=== PATIENT | female | born 1935 | race Caucasian/White ===

== ENCOUNTER 2019-02-13 17:11 | Inpatient (IN) | payer MEDICARE, OTHER ==
[~2019-02-13] VITALS: Ht 162.6 cm; Wt 47.8 kg
[~2019-02-13 17:11] MED LIST: ACETAMINOP500 MG/5 M PEG; ACETAMINOPHEN500 MG IV; ACIDOPHILUS1 EAC1 PEG; ASPIR-LOW81 MG PEG; ASPIRIN81 MG PEG; BACITRACIN1 EACH TOP; CLEOCIN HCL150 MG GT; CLONIDINE HCL0.1 MG PEG; COLLAGENASE1 EACH TOP; ENOXAPARIN40 MG/0.4 SC; ERTAPENEM; FAMOTIDINE20 MG PEG; FERROUS SU15 MG/1 ML; FERROUS SULFAT325 MG PEG; FOLIC ACID1 MG PEG; FUROSEMIDE10 MG/1 M1; HYDRALAZINE HCL10 MG IVP; INSULIN REGULAR SUBCON; IPRAT-ALBUT 0.5-3 ML; LEVOTHYROXINE150 MCG PEG; LEVOTHYROXINE200 MCG PEG; MEROPENEM500 MG IV; METOCLOPRAM5 MG/5 ML PEG; METOPROLOL TAR100 MG PEG; METOPROLOL TART25 MG PEG; PANTOPRAZOLE SO40 MG PEG; PEPCID40 MG PEG; PROTEIN POWDER PEG; PROTONIX20 MG; SUCRALFATE1 G/10 ML PEG; TRAMADOL PEG; TRIPLE ANTIBIO0.9 GM TOP; ULTRAM 50MG50 MG PEG
--- NOTE | 2019-02-13 18:16 | NUR ---
CALLED [facility]P FOR ABG
--- NOTE | 2019-02-13 18:37 | NUR ---
CALLED LAB FOR DRAW
[2019-02-13] MEDS ORDERED: SODIUM CHLORIDE 0.9% 1000ML 1,000 ML IV STA (18:53)
--- NOTE | 2019-02-13 18:59 | NUR ---
RT UNABLE TO GET MD JERMAINE NOTIFIED
--- NOTE | 2019-02-13 19:36 | Diagnostic Imaging Report ---
EXAMINATION: CHEST SINGLE (PORTABLE) COMPARISON: None available INDICATION: Shortness of breath ^SOB ^[id number] ^[id number] DISCUSSION: Frontal view of the chest obtained at 1915 hours. HEART AND MEDIASTINUM: The heart is normal in size. The aorta is tortuous LINES: None. LUNGS: Diffuse hyperinflation consistent with COPD. Patchy right basilar airspace opacities are present. PLEURA: No pleural effusion or pneumothorax. BONES AND SOFT TISSUES: There is a superimposed extremity over the proximal left humerus. No focal osseous lesions. The soft tissues are normal. IMPRESSION: Pulmonary hyperinflation suggestive of small airways disease/emphysema. Right basilar airspace opacity is suggestive of developing pneumonia. Signed by: Dr. Galilea Vallejo MD on 02/13/2019 7:33 PM
[2019-02-13] MEDS ORDERED: ACETAMINOPHEN 1000 MG/100 ML IV NR (19:45)
[2019-02-13] MEDS ORDERED: CEFEPIME 2 GM/NS 0.9% 100 ML 100 ML IV STA (19:45)
[2019-02-13 19:46] LABS: BILIRUBIN,URINE NEGATIVE (NEGATIVE); CLARITY,URINE SL CLOUDY (CLEAR); COLOR,URINE YELLOW (YELLOW); KETONES,URINE NEGATIVE (NEGATIVE); LEUKOCYTE ESTERASE ,URINE LARGE (NEGATIVE); NITRITE,URINE NEGATIVE (NEGATIVE); PROTEIN,URINE DIPSTICK TRACE (NEGATIVE); URINE UROBILINOGEN 0.2 mg/dL (0.2 - 1)
[2019-02-13 19:56] LABS: BASOPHILS % 0.2 % (0.0-1.0); EOSINOPHILS # (AUTO) 0.1 (0.0-0.4); EOSINOPHILS % 0.8 % (0.0-6.0); HEMATOCRIT 37.7 % (34.2-44.1); HEMOGLOBIN 11.6 g/dL (12.0-16.0); LYMPHOCYTES # (AUTO) 1.6 (1.0-3.2); LYMPHOCYTES % 15.1 % (18.0-39.1); MEAN CORPUSCULAR HEMOGLOBIN 34.5 pg (28-32); MEAN CORPUSCULAR HGB CONC 30.8 g/dL (31-35); MEAN CORPUSCULAR VOLUME 112.2 fL (81-99); MONOCYTES # (AUTO) 0.6 (0.2-0.8); MONOCYTES % 5.2 % (4.4-11.3); NEUTROPHILS # (AUTO) 8.5 (2.1-6.9); NEUTROPHILS % 78.2 % (38.7-80.0); PLATELET COUNT 227 x10e3/uL (140-360); RED BLOOD COUNT 3.36 x10e6/uL (3.6-5.1); RED CELL DISTRIBUTION WIDTH 16.9 % (11.7-14.4)
[2019-02-13 19:57] LABS: BACTERIA,URINE MANY /HPF; EPITHELIAL CELLS,URINE MODERATE /LPF
[2019-02-13 20:16] LABS: ALBUMIN 2.7 g/dL (3.5-5.0); ALBUMIN/GLOBULIN RATIO 0.6 (0.8-2.0); ANION GAP 14.2 mmol/L (8-16); CREATININE, SERUM 1.14 mg/dL (0.57-1.11); POTASSIUM 3.2 mmol/L (3.5-5.1)
--- NOTE | 2019-02-13 20:54 | NUR ---
pt c hr 150-170's. dr antony informed.
[2019-02-13] MEDS: SODIUM CHLORIDE 0.45% 1,000 ML IV SCH (20:55)
[2019-02-13] MEDS: METOPROLOL TARTRATE INJ 1 MG/ML VIAL IV NR ×2 (21:09→23:18)
[2019-02-13] MEDS ORDERED: METOPROLOL TARTRATE INJ 1 MG/ML VIAL ONE (21:12)
[2019-02-13] MEDS ORDERED: SODIUM CHLORIDE 0.45% IV ONE (21:15)
--- NOTE | 2019-02-13 21:41 | NUR ---
family at bedside c md discussing code status and pt condition.
[2019-02-13] MEDS ORDERED: ACETAMINOPHEN 1000 MG/100 ML IV STA (23:01)
[2019-02-13] MEDS ORDERED: ONDANSETRON HCL INJ 2MG/ML 2ML 2 MG/ML VIAL IV STA (23:01)
[2019-02-13] MEDS ORDERED: REFRESH CELLUV1 EACH OU (23:07)
[2019-02-13] MEDS ORDERED: LACTULOSE20 GM/30 M PEG (23:07)
[2019-02-13] MEDS ORDERED: MONTELUKAST SOD10 MG PO (23:07)
[2019-02-13] MEDS ORDERED: SODIUM CHLORIDE1 GM PO (23:07)
[2019-02-13] MEDS ORDERED: FUROSEMIDE40 MG PO (23:07)
[2019-02-13] MEDS ORDERED: ACETYLCYST100 MG/1 M INH (23:09)
[2019-02-13] MEDS ORDERED: COMBIVENT RESPIM4 GM IH (23:09)
[2019-02-13] MEDS ORDERED: CEFEPIME 2 GM/NS 0.9% 100 ML 100 ML IV SCH (23:15)
[2019-02-13] MEDS ORDERED: ACETAMINOPHEN 1000 MG/100 ML IV PRN (23:15)
--- OUTSIDE RECORDS SUMMARY | 2019-02-13 23:17 | XMS REPORT ---
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 Allergies, Adverse Reactions, Alerts Allergy Name Allergy Type Status Severity Reaction(s) Onset Date Inactive Date Treating Clinician Comments Penicillins DA Active U 2018-12-13 00:00:00 Sulfa (Sulfonamide Antibiotics) DA Active U 2018-12-13 00:00:00 morphine DA Active U 2018-12-13 00:00:00 codeine DA Active U 2018-12-13 00:00:00 No Known Allergies DA Active U 2018-11-04 00:00:00 Penicillins DA Active U 2018-10-24 00:00:00 Sulfa (Sulfonamide Antibiotics) DA Active U 2018-10-24 00:00:00 morphine DA Active U 2018-10-24 00:00:00 codeine DA Active U 2018-10-24 00:00:00 Penicillins DA Active U 2018-10-08 00:00:00 Sulfa (Sulfonamide Antibiotics) DA Active U 2018-10-08 00:00:00 morphine DA Active U 2018-10-08 00:00:00 codeine DA Active U 2018-10-08 00:00:00 SILK TAPE DA Active U 2018-10-08 00:00:00 morphine DA Active U 2018-09-21 00:00:00 Penicillins DA Active U 2018-09-15 00:00:00 Sulfa (Sulfonamide Antibiotics) DA Active U 2018-09-15 00:00:00 codeine DA Active U 2018-09-15 00:00:00 Penicillins DA Active U 2018-04-28 00:00:00 Sulfa (Sulfonamide Antibiotics) DA Active U 2018-04-28 00:00:00 codeine DA Active U 2018-04-28 00:00:00 Penicillins DA Active U 2017-12-23 00:00:00 Sulfa (Sulfonamide Antibiotics) DA Active U 2017-12-23 00:00:00 codeine DA Active U 2017-12-23 00:00:00 Penicillins DA Active U 2017-08-13 00:00:00 Sulfa (Sulfonamide Antibiotics) DA Active U 2017-08-13 00:00:00 codeine DA Active U 2017-08-13 00:00:00 Medications This patient has no known medications. Results Test Description Test Time Test Comments Text Results Atomic Results Result Comments CHEST SINGLE (PORTABLE) 2019-02-13 19:31:00 [place] [address] Patient Name: ANA CRISTINA FLANNERY MR #: [id number] : 1935 Age/Sex: 83/F Req #: [id number] Adm Physician: Ordered by: DAVID PAVON MD Report #: [id number] Location: ER Room/Bed: Procedure: [id number] DX/CHEST SINGLE (PORTABLE) Exam Date: 02/13/19 Exam Time: 1914 REPORT STATUS: Signed EXAMINATION: CHEST SINGLE (PORTABLE) [facility] PARISON: None available INDICATION: Shortness of breath SOB [id number] DISCUSSION: Frontal view of the chest obtained at 1915 hours. HEART AND MEDIASTINUM: The heart is normal in size. The aorta is tortuous LINES: None. LUNGS: Diffuse hyperinflation consistent with COPD. Patchy right basilar airspace opacities are present. PLEURA: No pleural effusion or pneumothorax. BONES AND SOFT TISSUES: There is a superimposed extremity over the proximal left humerus. No focal osseous lesions. The soft tissues are normal. IMPRESSION: Pulmonary hyperinflation suggestive of small airways disease/emphysema. Right basilar airspace opacity is suggestive of developing pneumonia. Signed by: Dr. Galilea Sanches MD on 02/13/2019 7:33 PM Dictated By: GALILEA SANCHES MD 32 Transcribed By: NATHALY on 02/13/191932 COPY TO: DAVID PAVON MD - CONT INJ GS/ ELIZABETH/ FRANCISCO/ SAUNDRA 2018-12-13 15:29:00 FAX: Jeff Arroyo [phone] Pace: St: REG FAX: Stone Ulloa DO Name: ANA CRISTINA FLANNERY [facility] : 1935 Age/S: 83/F [address] [facility] Unit #: [id number] Loc: [place] [address] Phys: Stone Ulloa DO Acct: [id number] Dis Date: Status: REG ER PHONE #: [phone] Exam Date: 12/13/2018 151 FAX #: [phone] Reason: PEG tube placement - use gastrograffin EXAMS: CPT CODE: [id number] CONT INJ GS/ ELIZABETH/ FRANCISCO/ [place] [address] HISTORY: PEG tube placement. COMPARISON: CT scan from October 08, 2018. Entry Level view of the abdomen demonstrating tube tip in the left upper quadrant. Following contrast administration the PEG tube tip is in the gastric fundus region with opacification of the stomach and duodenum. IMPRESSION: PEG tube tip in the gastric fundus with opacification of the stomach and the duodenum. at 1529 Reported and signed by: Barney Epperson M.D. CC: Dr. Jeff Gutierres; Stone Ulloa DO Technologist: Anisha Montana(R); LUKAS BOB (R) Trnscrd Date/Time/By: 12/13/2018 (3381) : By: [email or web address] Orig Print D/T: S: 12/13/2018 (9360) PAGE 1 Signed Report BASIC METABOLIC PANEL 2018-11-14 06:09:00 SODIUM (test code=NA) 133 mmol/L 136-145 POTASSIUM (test code=K) 4.4 mmol/L 3.5-5.1 CHLORIDE (test code=CL) 104.0 mmol/L 98-107 CARBON DIOXIDE (test code=CO2) 21.0 mmol/L 21-32 ANION GAP (test code=GAP) 12.4 10-20 GLUCOSE (test code=GLU) 104 mg/dL 74-106 BLOOD UREA NITROGEN (test code=BUN) 30 mg/dL 7-18 GLOMERULAR FILTRATION RATE (test code=GFR) > 60 mL/min >=60 Estimated GFR by using Modified MDRD formula.Chronic kidney disease is defined as either kidney damageor GFR <60 mL/min/1.73 m2 for >3 months. CREATININE (test code=CREAT) 0.60 mg/dL 0.55-1.02 Note change in reference range due to change in reagent. BUN/CREATININE RATIO (test code=BUN/CREA) 50.0 10-20 CALCIUM (test code=CA) 8.4 mg/dL 8.5-10.1 BASIC METABOLIC [id number] 05:41:00* Test Item Value Reference Range Comments SODIUM (test code=NA) 133 mmol/L 136-145 POTASSIUM (test code=K) 4.4 mmol/L 3.5-5.1 CHLORIDE (test code=CL) 104.0 mmol/L 98-107 CARBON DIOXIDE (test code=CO2) mmol/L 21-32 ANION GAP (test code=GAP) 10-20 GLUCOSE (test code=GLU) mg/dL 74-106 BLOOD UREA NITROGEN (test code=BUN) mg/dL 7-18 GLOMERULAR FILTRATION RATE (test code=GFR) mL/min >=60 CREATININE (test code=CREAT) mg/dL 0.55-1.02 BUN/CREATININE RATIO (test code=BUN/CREA) 10-20 CALCIUM (test code=CA) mg/dL 8.5-10.1 COMPREHENSIVE METABOLIC [id number] 11:00:00* Test Item Value Reference Range Comments SODIUM (test code=NA) 132 mmol/L 136-145 POTASSIUM (test code=K) 4.4 mmol/L 3.5-5.1 CHLORIDE (test code=CL) 102.0 mmol/L 98-107 CARBON DIOXIDE (test code=CO2) 19.0 mmol/L 21-32 ANION GAP (test code=GAP) 15.4 10-20 GLUCOSE (test code=GLU) 127 mg/dL 74-106 BLOOD UREA NITROGEN (test code=BUN) 27 mg/dL 7-18 GLOMERULAR FILTRATION RATE (test code=GFR) > 60 mL/min >=60 Estimated GFR by using Modified MDRD formula.Chronic kidney disease is defined as either kidney damageor GFR <60 mL/min/1.73 m2 for >3 months. CREATININE (test code=CREAT) 0.60 mg/dL 0.55-1.02 Note change in reference range due to change in reagent. BUN/CREATININE RATIO (test code=BUN/CREA) 45.0 10-20 TOTAL PROTEIN (test code=PROT) 6.4 gram/dL 6.4-8.2 ALBUMIN (test code=ALB) 2.6 g/dL 3.4-5.0 GLOBULIN (test code=GLOB) 3.8 gram/dL 2.7-4.2 ALBUMIN/GLOBULIN RATIO (test code=A/G) 0.7 0.75-1.50 CALCIUM (test code=CA) 8.2 mg/dL 8.5-10.1 BILIRUBIN TOTAL (test code=BILT) 0.30 mg/dL 0.0-1.0 SGOT/AST (test code=AST) 34 IUnit/L 15-37 SGPT/ALT (test code=ALT) 39 IUnit/L 12-78 ALKALINE PHOSPHATASE TOTAL (test code=ALKP) 117 IUnit/L 45-117 Note change in reference range due to change in reagent. PT IS A HARD STICK NOTIFIED NURSE [id number] V.LAB.AL11/13/18 0816CBC W/AUTO [id number] 10:54:00* Test Item Value Reference Range Comments WHITE BLOOD CELL (test code=WBC) 6.3 K/mm3 4.5-12.5 RED BLOOD CELL (test code=RBC) 2.51 mill/mm3 3.7-5.2 HEMOGLOBIN (test code=HGB) 9.3 gram/dL 11.5-15.5 HEMATOCRIT (test code=HCT) 25.2 % 36.0-46.0 MEAN CELL VOLUME (test code=MCV) 100.4 fL 80-98 MEAN CELL HGB (test code=MCH) 37.1 picogram 27.0-33.0 MEAN CELL HGB CONCETRATION (test code=MCHC) 36.9 gram/dL 33.0-36.0 RED CELL DISTRIBUTION WIDTH (test code=RDW) 18.6 % 11.6-16.2 RED CELL DISTRIBUTION WIDTH SD (test code=RDW-SD) 57.9 fL 37.0-51.0 PLATELET COUNT (test code=PLT) 177 K/mm3 150-450 MEAN PLATELET VOLUME (test code=MPV) 8.6 fL 6.7-11.0 NEUTROPHIL % (test code=NT%) 68.2 % 39.0-69.0 IMMATURE GRANULOCYTE % (test code=IG%) 0.5 % 0.0-5.0 LYMPHOCYTE % (test code=LY%) 18.1 % 25.0-55.0 MONOCYTE % (test code=MO%) 7.4 % 0.0-10.0 EOSINOPHIL % (test code=EO%) 5.3 % 0.0-5.0 BASOPHIL % (test code=BA%) 0.5 % 0.0-1.0 NUCLEATED RBC % (test code=NRBC%) 0.0 % 0-0 NEUTROPHIL # (test code=NT#) 4.27 K/mm3 1.8-7.7 IMMATURE GRANULOCYTE # (test code=IG#) 0.03 x10 3/uL 0-0.03 LYMPHOCYTE # (test code=LY#) 1.13 K/mm3 1.0-5.0 MONOCYTE # (test code=MO#) 0.46 K/mm3 0-0.8 EOSINOPHIL # (test code=EO#) 0.33 K/mm3 0.0-0.5 BASOPHIL # (test code=BA#) 0.03 K/mm3 0.0-0.2 NUCLEATED RBC # (test code=NRBC#) 0.00 K/mm3 0.0-0.1 MANUAL DIFF REQUIRED (test code=MDIFF) NO PT IS A HARD STICK NOTIFIED NURSE [id number] V.LAB.11/13/18 0819 COMPREHENSIVE METABOLIC [id number] 10:54:00* Test Item Value Reference Range Comments SODIUM (test code=NA) 132 mmol/L 136-145 POTASSIUM (test code=K) 4.4 mmol/L 3.5-5.1 CHLORIDE (test code=CL) 102.0 mmol/L 98-107 CARBON DIOXIDE (test code=CO2) mmol/L 21-32 ANION GAP (test code=GAP) 10-20 GLUCOSE (test code=GLU) mg/dL 74-106 BLOOD UREA NITROGEN (test code=BUN) mg/dL 7-18 GLOMERULAR FILTRATION RATE (test code=GFR) mL/min >=60 CREATININE (test code=CREAT) mg/dL 0.55-1.02 BUN/CREATININE RATIO (test code=BUN/CREA) 10-20 TOTAL PROTEIN (test code=PROT) gram/dL 6.4-8.2 ALBUMIN (test code=ALB) g/dL 3.4-5.0 GLOBULIN (test code=GLOB) gram/dL 2.7-4.2 ALBUMIN/GLOBULIN RATIO (test code=A/G) 0.75-1.50 CALCIUM (test code=CA) mg/dL 8.5-10.1 BILIRUBIN TOTAL (test code=BILT) mg/dL 0.0-1.0 SGOT/AST (test code=AST) IUnit/L 15-37 SGPT/ALT (test code=ALT) IUnit/L 12-78 ALKALINE PHOSPHATASE TOTAL (test code=ALKP) IUnit/L 45-117 PT IS A HARD STICK NOTIFIED NURSE [id number] V.LAB.11/13/18 0816 PROCALCITONIN (PCT)2018-11-12 07:14:00* Test Item Value Reference Range Comments PROCALCITONIN (PCT) (test code=PROCAL) 3.48 ng/ml Concentration Interpretation (ng/mL) <0.51 Sepsis is not likely. Local bacterial infection is possible. (LOW RISK for progression to Sepsis) 0.51 - 2.00 Sepsis is possible, but other conditions are known to elevate PCT as well. (MODERATE RISK for progression to Sepsis) > 2.00 Sepsis is likely, unless other causes are known. (HIGH RISK for progression to Severe Sepsis or Septic Shock) 10.00 High likelihood of Severe Sepsis or Septic or higher Shock. *Increased PCT levels may not always be related to systemic bacterial infection.*Low PCT levels do not automatically exclude the presence of bacterial infection.*All results should be interpreted taking into account the patients history. PROCALCITONIN (PCT)2018-11-11 07:28:00* Test Item Value Reference Range Comments PROCALCITONIN (PCT) (test code=PROCAL) 6.63 ng/ml Concentration Interpretation (ng/mL) <0.51 Sepsis is not likely. Local bacterial infection is possible. (LOW RISK for progression to Sepsis) 0.51 - 2.00 Sepsis is possible, but other conditions are known to elevate PCT as well. (MODERATE RISK for progression to Sepsis) > 2.00 Sepsis is likely, unless other causes are known. (HIGH RISK for progression to Severe Sepsis or Septic Shock) 10.00 High likelihood of Severe Sepsis or Septic or higher Shock. *Increased PCT levels may not always be related to systemic bacterial infection.*Low PCT levels do not automatically exclude the presence of bacterial infection.*All results should be interpreted taking into account the patients history. COMPREHENSIVE METABOLIC [id number] 06:48:00* Test Item Value Reference Range Comments SODIUM (test code=NA) 131 mmol/L 136-145 POTASSIUM (test code=K) 4.3 mmol/L 3.5-5.1 CHLORIDE (test code=CL) 103.0 mmol/L 98-107 CARBON DIOXIDE (test code=CO2) 20.0 mmol/L 21-32 ANION GAP (test code=GAP) 12.3 10-20 GLUCOSE (test code=GLU) 131 mg/dL 74-106 BLOOD UREA NITROGEN (test code=BUN) 20 mg/dL 7-18 GLOMERULAR FILTRATION RATE (test code=GFR) > 60 mL/min >=60 Estimated GFR by using Modified MDRD formula.Chronic kidney disease is defined as either kidney damageor GFR <60 mL/min/1.73 m2 for >3 months. CREATININE (test code=CREAT) 0.60 mg/dL 0.55-1.02 Note change in reference range due to change in reagent. BUN/CREATININE RATIO (test code=BUN/CREA) 32.5 10-20 TOTAL PROTEIN (test code=PROT) 6.0 gram/dL 6.4-8.2 ALBUMIN (test code=ALB) 2.5 g/dL 3.4-5.0 GLOBULIN (test code=GLOB) 3.5 gram/dL 2.7-4.2 ALBUMIN/GLOBULIN RATIO (test code=A/G) 0.7 0.75-1.50 CALCIUM (test code=CA) 7.8 mg/dL 8.5-10.1 BILIRUBIN TOTAL (test code=BILT) 0.30 mg/dL 0.0-1.0 SGOT/AST (test code=AST) 23 IUnit/L 15-37 SGPT/ALT (test code=ALT) 23 IUnit/L 12-78 ALKALINE PHOSPHATASE TOTAL (test code=ALKP) 92 IUnit/L 45-117 Note change in reference range due to change in reagent. COMPREHENSIVE METABOLIC [id number] 06:47:00* Test Item Value Reference Range Comments SODIUM (test code=NA) 131 mmol/L 136-145 POTASSIUM (test code=K) 4.3 mmol/L 3.5-5.1 CHLORIDE (test code=CL) 103.0 mmol/L 98-107 CARBON DIOXIDE (test code=CO2) mmol/L 21-32 ANION GAP (test code=GAP) 10-20 GLUCOSE (test code=GLU) mg/dL 74-106 BLOOD UREA NITROGEN (test code=BUN) mg/dL 7-18 GLOMERULAR FILTRATION RATE (test code=GFR) mL/min >=60 CREATININE (test code=CREAT) mg/dL 0.55-1.02 BUN/CREATININE RATIO (test code=BUN/CREA) 10-20 TOTAL PROTEIN (test code=PROT) gram/dL 6.4-8.2 ALBUMIN (test code=ALB) g/dL 3.4-5.0 GLOBULIN (test code=GLOB) gram/dL 2.7-4.2 ALBUMIN/GLOBULIN RATIO (test code=A/G) 0.75-1.50 CALCIUM (test code=CA) mg/dL 8.5-10.1 BILIRUBIN TOTAL (test code=BILT) mg/dL 0.0-1.0 SGOT/AST (test code=AST) IUnit/L 15-37 SGPT/ALT (test code=ALT) IUnit/L 12-78 ALKALINE PHOSPHATASE TOTAL (test code=ALKP) IUnit/L 45-117 CBC W/AUTO [id number] 06:02:00* Test Item Value Reference Range Comments WHITE BLOOD CELL (test code=WBC) 6.2 K/mm3 4.5-12.5 RED BLOOD CELL (test code=RBC) 2.41 mill/mm3 3.7-5.2 HEMOGLOBIN (test code=HGB) 8.9 gram/dL 11.5-15.5 HEMATOCRIT (test code=HCT) 24.4 % 36.0-46.0 MEAN CELL VOLUME (test code=MCV) 101.2 fL 80-98 MEAN CELL HGB (test code=MCH) 36.9 picogram 27.0-33.0 MEAN CELL HGB CONCETRATION (test code=MCHC) 36.5 gram/dL 33.0-36.0 RED CELL DISTRIBUTION WIDTH (test code=RDW) 18.8 % 11.6-16.2 RED CELL DISTRIBUTION WIDTH SD (test code=RDW-SD) 57.6 fL 37.0-51.0 PLATELET COUNT (test code=PLT) 148 K/mm3 150-450 MEAN PLATELET VOLUME (test code=MPV) 8.7 fL 6.7-11.0 NEUTROPHIL % (test code=NT%) 67.5 % 39.0-69.0 IMMATURE GRANULOCYTE % (test code=IG%) 0.3 % 0.0-5.0 LYMPHOCYTE % (test code=LY%) 17.5 % 25.0-55.0 MONOCYTE % (test code=MO%) 8.8 % 0.0-10.0 EOSINOPHIL % (test code=EO%) 5.4 % 0.0-5.0 BASOPHIL % (test code=BA%) 0.5 % 0.0-1.0 NUCLEATED RBC % (test code=NRBC%) 0.0 % 0-0 NEUTROPHIL # (test code=NT#) 4.21 K/mm3 1.8-7.7 IMMATURE GRANULOCYTE # (test code=IG#) 0.02 x10 3/uL 0-0.03 LYMPHOCYTE # (test code=LY#) 1.09 K/mm3 1.0-5.0 MONOCYTE # (test code=MO#) 0.55 K/mm3 0-0.8 EOSINOPHIL # (test code=EO#) 0.34 K/mm3 0.0-0.5 BASOPHIL # (test code=BA#) 0.03 K/mm3 0.0-0.2 NUCLEATED RBC # (test code=NRBC#) 0.00 K/mm3 0.0-0.1 BASIC METABOLIC [id number] 12:59:00* Test Item Value Reference Range Comments SODIUM (test code=NA) 129 mmol/L 136-145 POTASSIUM (test code=K) 4.4 mmol/L 3.5-5.1 CHLORIDE (test code=CL) 102.0 mmol/L 98-107 CARBON DIOXIDE (test code=CO2) 19.0 mmol/L 21-32 ANION GAP (test code=GAP) 12.4 10-20 GLUCOSE (test code=GLU) 141 mg/dL 74-106 BLOOD UREA NITROGEN (test code=BUN) 20 mg/dL 7-18 GLOMERULAR FILTRATION RATE (test code=GFR) > 60 mL/min >=60 Estimated GFR by using Modified MDRD formula.Chronic kidney disease is defined as either kidney damageor GFR <60 mL/min/1.73 m2 for >3 months. CREATININE (test code=CREAT) 0.60 mg/dL 0.55-1.02 Note change in reference range due to change in reagent. BUN/CREATININE RATIO (test code=BUN/CREA) 30.8 10-20 CALCIUM (test code=CA) 7.3 mg/dL 8.5-10.1 PT VERY CONTRACTED, GOT IN VEIN NO FLOW. ROME THOMPSON [id number] V.LAB.1 11/10/18 0622 BASIC METABOLIC [id number] 12:41:00* Test Item Value Reference Range Comments SODIUM (test code=NA) 129 mmol/L 136-145 POTASSIUM (test code=K) 4.4 mmol/L 3.5-5.1 CHLORIDE (test code=CL) 102.0 mmol/L 98-107 CARBON DIOXIDE (test code=CO2) mmol/L 21-32 ANION GAP (test code=GAP) 10-20 GLUCOSE (test code=GLU) mg/dL 74-106 BLOOD UREA NITROGEN (test code=BUN) mg/dL 7-18 GLOMERULAR FILTRATION RATE (test code=GFR) mL/min >=60 CREATININE (test code=CREAT) mg/dL 0.55-1.02 BUN/CREATININE RATIO (test code=BUN/CREA) 10-20 CALCIUM (test code=CA) mg/dL 8.5-10.1 PT VERY CONTRACTED, GOT IN VEIN NO FLOW. ROME THOMPSON [id number] V.LAB.1 11/10/1822 CBC W/AUTO [id number] 12:23:00* Test Item Value Reference Range Comments WHITE BLOOD CELL (test code=WBC) 4.9 K/mm3 4.5-12.5 RED BLOOD CELL (test code=RBC) 2.57 mill/mm3 3.7-5.2 HEMOGLOBIN (test code=HGB) 8.6 gram/dL 11.5-15.5 HEMATOCRIT (test code=HCT) 25.2 % 36.0-46.0 MEAN CELL VOLUME (test code=MCV) 98.1 fL 80-98 MEAN CELL HGB (test code=MCH) 33.5 picogram 27.0-33.0 MEAN CELL HGB CONCETRATION (test code=MCHC) 34.1 gram/dL 33.0-36.0 RED CELL DISTRIBUTION WIDTH (test code=RDW) 17.2 % 11.6-16.2 RED CELL DISTRIBUTION WIDTH SD (test code=RDW-SD) 58.9 fL 37.0-51.0 PLATELET COUNT (test code=PLT) 140 K/mm3 150-450 MEAN PLATELET VOLUME (test code=MPV) 8.5 fL 6.7-11.0 NEUTROPHIL % (test code=NT%) 65.3 % 39.0-69.0 IMMATURE GRANULOCYTE % (test code=IG%) 0.2 % 0.0-5.0 LYMPHOCYTE % (test code=LY%) 19.4 % 25.0-55.0 MONOCYTE % (test code=MO%) 10.2 % 0.0-10.0 EOSINOPHIL % (test code=EO%) 4.5 % 0.0-5.0 BASOPHIL % (test code=BA%) 0.4 % 0.0-1.0 NUCLEATED RBC % (test code=NRBC%) 0.0 % 0-0 NEUTROPHIL # (test code=NT#) 3.20 K/mm3 1.8-7.7 IMMATURE GRANULOCYTE # (test code=IG#) 0.01 x10 3/uL 0-0.03 LYMPHOCYTE # (test code=LY#) 0.95 K/mm3 1.0-5.0 MONOCYTE # (test code=MO#) 0.50 K/mm3 0-0.8 EOSINOPHIL # (test code=EO#) 0.22 K/mm3 0.0-0.5 BASOPHIL # (test code=BA#) 0.02 K/mm3 0.0-0.2 NUCLEATED RBC # (test code=NRBC#) 0.00 K/mm3 0.0-0.1 MANUAL DIFF REQUIRED (test code=MDIFF) NO PT VERY CONTRACTED, GOT IN VEIN NO FLOW. ROME THOMPSON [id number] V.LAB.RP1 11/10/18 0622 PROCALCITONIN (PCT)2018-11-09 19:16:00* Test Item Value Reference Range Comments PROCALCITONIN (PCT) (test code=PROCAL) 1.23 ng/ml Concentration Interpretation (ng/mL) <0.51 Sepsis is not likely. Local bacterial infection is possible. (LOW RISK for progression to Sepsis) 0.51 - 2.00 Sepsis is possible, but other conditions are known to elevate PCT as well. (MODERATE RISK for progression to Sepsis) > 2.00 Sepsis is likely, unless other causes are known. (HIGH RISK for progression to Severe Sepsis or Septic Shock) 10.00 High likelihood of Severe Sepsis or Septic or higher Shock. *Increased PCT levels may not always be related to systemic bacterial infection.*Low PCT levels do not automatically exclude the presence of bacterial infection.*All results should be interpreted taking into account the patients history. - XR CHEST 1 [id number] 09:11:00 FAX: Adam Manzano MD [phone] Pace: St: [facility] FAX: Jeff Arroyo [phone] Name: ANA CRISTINA FLANNERY [facility] : 1935 Age/S: 83/F [address] [facility] Unit #: [id number] Loc: V[address] [place] [address] Phys: Adam Wood MD Acct: [id number] Dis Date: Status: ADM IN PHONE #: [phone] Exam Date: 11/09/2018 0852 FAX #: [phone] Reason: FEVER EXAMS: CPT CODE: [id number] XR CHEST 1 V 01314 HISTORY: Fever. COMPARISON: October 08, 2018. Overlying limited evaluation of the lung parenchyma. No acute infiltrates, effusion or congestion is noted. Mild scarring. Mild cardiomegaly. IMPRESSION: No acute infiltrates, effusion or congestion. Borderline contents obscure portions of the upper lobes at 0911 Reported and signed by: Barney Epperson M.D. CC: Adam Wood MD; Dr. Jeff Gutierres Technologist: Anisha Montana(R); Rohininicole Bryant RT(R) Trnscrd Date/Time/By: 0 11/09/2018 (910) : By: [email or web address] Orig Print D/T: S: 11/09/2018 (0947) PAGE 1 Signed Report CBC W/AUTO [id number] 07:50:00* Test Item Value Reference Range Comments WHITE BLOOD CELL (test code=WBC) 5.3 K/mm3 4.5-12.5 RED BLOOD CELL (test code=RBC) 2.68 mill/mm3 3.7-5.2 HEMOGLOBIN (test code=HGB) 9.5 gram/dL 11.5-15.5 HEMATOCRIT (test code=HCT) 26.3 % 36.0-46.0 MEAN CELL VOLUME (test code=MCV) 98.1 fL 80-98 MEAN CELL HGB (test code=MCH) 35.4 picogram 27.0-33.0 MEAN CELL HGB CONCETRATION (test code=MCHC) 36.1 gram/dL 33.0-36.0 RED CELL DISTRIBUTION WIDTH (test code=RDW) 17.9 % 11.6-16.2 RED CELL DISTRIBUTION WIDTH SD (test code=RDW-SD) 58.1 fL 37.0-51.0 PLATELET COUNT (test code=PLT) 144 K/mm3 150-450 MEAN PLATELET VOLUME (test code=MPV) 8.3 fL 6.7-11.0 NEUTROPHIL % (test code=NT%) 83.5 % 39.0-69.0 IMMATURE GRANULOCYTE % (test code=IG%) 0.4 % 0.0-5.0 LYMPHOCYTE % (test code=LY%) 8.4 % 25.0-55.0 MONOCYTE % (test code=MO%) 6.4 % 0.0-10.0 EOSINOPHIL % (test code=EO%) 1.1 % 0.0-5.0 BASOPHIL % (test code=BA%) 0.2 % 0.0-1.0 NUCLEATED RBC % (test code=NRBC%) 0.0 % 0-0 NEUTROPHIL # (test code=NT#) 4.45 K/mm3 1.8-7.7 IMMATURE GRANULOCYTE # (test code=IG#) 0.02 x10 3/uL 0-0.03 LYMPHOCYTE # (test code=LY#) 0.45 K/mm3 1.0-5.0 MONOCYTE # (test code=MO#) 0.34 K/mm3 0-0.8 EOSINOPHIL # (test code=EO#) 0.06 K/mm3 0.0-0.5 BASOPHIL # (test code=BA#) 0.01 K/mm3 0.0-0.2 NUCLEATED RBC # (test code=NRBC#) 0.00 K/mm3 0.0-0.1 MANUAL DIFF REQUIRED (test code=MDIFF) NO COMPREHENSIVE METABOLIC [id number] 06:37:00* Test Item Value Reference Range Comments SODIUM (test code=NA) 131 mmol/L 136-145 POTASSIUM (test code=K) 4.6 mmol/L 3.5-5.1 CHLORIDE (test code=CL) 102.0 mmol/L 98-107 CARBON DIOXIDE (test code=CO2) 17.0 mmol/L 21-32 ANION GAP (test code=GAP) 16.6 10-20 GLUCOSE (test code=GLU) 99 mg/dL 74-106 BLOOD UREA NITROGEN (test code=BUN) 15 mg/dL 7-18 GLOMERULAR FILTRATION RATE (test code=GFR) > 60 mL/min >=60 Estimated GFR by using Modified MDRD formula.Chronic kidney disease is defined as either kidney damageor GFR <60 mL/min/1.73 m2 for >3 months. CREATININE (test code=CREAT) 0.70 mg/dL 0.55-1.02 Note change in reference range due to change in reagent. BUN/CREATININE RATIO (test code=BUN/CREA) 21.4 10-20 TOTAL PROTEIN (test code=PROT) 5.9 gram/dL 6.4-8.2 ALBUMIN (test code=ALB) 2.6 g/dL 3.4-5.0 GLOBULIN (test code=GLOB) 3.3 gram/dL 2.7-4.2 ALBUMIN/GLOBULIN RATIO (test code=A/G) 0.8 0.75-1.50 CALCIUM (test code=CA) 7.7 mg/dL 8.5-10.1 BILIRUBIN TOTAL (test code=BILT) 0.60 mg/dL 0.0-1.0 SGOT/AST (test code=AST) 31 IUnit/L 15-37 SGPT/ALT (test code=ALT) 17 IUnit/L 12-78 ALKALINE PHOSPHATASE TOTAL (test code=ALKP) 116 IUnit/L 45-117 Note change in reference range due to change in reagent. COMPREHENSIVE METABOLIC [id number] 06:27:00* Test Item Value Reference Range Comments SODIUM (test code=NA) 131 mmol/L 136-145 POTASSIUM (test code=K) 4.6 mmol/L 3.5-5.1 CHLORIDE (test code=CL) 102.0 mmol/L 98-107 CARBON DIOXIDE (test code=CO2) mmol/L 21-32 ANION GAP (test code=GAP) 10-20 GLUCOSE (test code=GLU) mg/dL 74-106 BLOOD UREA NITROGEN (test code=BUN) mg/dL 7-18 GLOMERULAR FILTRATION RATE (test code=GFR) mL/min >=60 CREATININE (test code=CREAT) mg/dL 0.55-1.02 BUN/CREATININE RATIO (test code=BUN/CREA) 10-20 TOTAL PROTEIN (test code=PROT) gram/dL 6.4-8.2 ALBUMIN (test code=ALB) g/dL 3.4-5.0 GLOBULIN (test code=GLOB) gram/dL 2.7-4.2 ALBUMIN/GLOBULIN RATIO (test code=A/G) 0.75-1.50 CALCIUM (test code=CA) mg/dL 8.5-10.1 BILIRUBIN TOTAL (test code=BILT) mg/dL 0.0-1.0 SGOT/AST (test code=AST) IUnit/L 15-37 SGPT/ALT (test code=ALT) IUnit/L 12-78 ALKALINE PHOSPHATASE TOTAL (test code=ALKP) IUnit/L 45-117 PROCALCITONIN (PCT)2018-11-08 20:28:00* Test Item Value Reference Range Comments PROCALCITONIN (PCT) (test code=PROCAL) 0.75 ng/ml Concentration Interpretation (ng/mL) <0.51 Sepsis is not likely. Local bacterial infection is possible. (LOW RISK for progression to Sepsis) 0.51 - 2.00 Sepsis is possible, but other conditions are known to elevate PCT as well. (MODERATE RISK for progression to Sepsis) > 2.00 Sepsis is likely, unless other causes are known. (HIGH RISK for progression to Severe Sepsis or Septic Shock) 10.00 High likelihood of Severe Sepsis or Septic or higher Shock. *Increased PCT levels may not always be related to systemic bacterial infection.*Low PCT levels do not automatically exclude the presence of bacterial infection.*All results should be interpreted taking into account the patients history. LACTIC [id number] 20:17:00* Test Item Value Reference Range Comments LACTIC ACID (test code=LACT) 0.9 mmol/L 0.4-1.9 URINALYSIS [id number] 19:49:00* Test Item Value Reference Range Comments UA COLOR (test code=COLU) YELLOW YELLOW UA APPEARANCE (test code=APPU) TURBID CLEAR UA GLUCOSE DIPSTICK (test code=DGLUU) NEGATIVE mg/dL NEGATIVE UA BILIRUBIN DIPSTICK (test code=BILU) NEGATIVE mg/dL NEGATIVE UA KETONE DIPSTICK (test code=KETU) NEGATIVE mg/dL NEGATIVE UA SPECIFIC GRAVITY (test code=SGU) 1.009 1.001-1.035 UA BLOOD DIPSTICK (test code=TIERA) 0.2 mg/dL (2+) mg/dL NEGATIVE UA PH DIPSTICK (test code=YULISA) 7.0 5.0-8.0 UA PROTEIN DIPSTICK (test code=PROU) 30 (1+) mg/dL NEGATIVE UA UROBILINIOGEN DIPSTICK (test code=URO) Normal mg/dL NEGATIVE UA NITRITE DIPSTICK (test code=ESTELLE) NEGATIVE NEGATIVE UA LEUKOCYTE ESTERASE W REFLEX (test code=LEUUR) 500 Andrey/uL (3+) Andrey/uL NEGATIVE UA WBC (test code=WBCU) >200 per HPF 0-5 UA RBC (test code=RBCU) 51-100 #/HPF 0-5 UA EPITHELIAL CELLS (test code=EPIU) FEW per HPF FEW UA BACTERIA (test code=BACU) FEW #/HPF NONE UA TRANSITIONAL CELLS (test code=TRANU) 0-2 per HPF Few UA MUCUS (test code=MUCU) FEW #/LPF FEW Urine Source? CatheterURINALYSIS [id number] 19:44:00* Test Item Value Reference Range Comments UA COLOR (test code=COLU) YELLOW YELLOW UA APPEARANCE (test code=APPU) TURBID CLEAR UA GLUCOSE DIPSTICK (test code=DGLUU) NEGATIVE mg/dL NEGATIVE UA BILIRUBIN DIPSTICK (test code=BILU) NEGATIVE mg/dL NEGATIVE UA KETONE DIPSTICK (test code=KETU) NEGATIVE mg/dL NEGATIVE UA SPECIFIC GRAVITY (test code=SGU) 1.009 1.001-1.035 UA BLOOD DIPSTICK (test code=TIERA) 0.2 mg/dL (2+) mg/dL NEGATIVE UA PH DIPSTICK (test code=YULISA) 7.0 5.0-8.0 UA PROTEIN DIPSTICK (test code=PROU) 30 (1+) mg/dL NEGATIVE UA UROBILINIOGEN DIPSTICK (test code=URO) Normal mg/dL NEGATIVE UA NITRITE DIPSTICK (test code=ESTELLE) NEGATIVE NEGATIVE UA LEUKOCYTE ESTERASE W REFLEX (test code=LEUUR) 500 Andrey/uL (3+) Andrey/uL NEGATIVE UA WBC (test code=WBCU) per HPF 0-5 UA RBC (test code=RBCU) per HPF 0-5 UA EPITHELIAL CELLS (test code=EPIU) per HPF Few UA BACTERIA (test code=BACU) per HPF NONE Urine Source? CatheterCOMPREHENSIVE METABOLIC [id number] 07:41:00* Test Item Value Reference Range Comments SODIUM (test code=NA) 131 mmol/L 136-145 POTASSIUM (test code=K) 4.5 mmol/L 3.5-5.1 CHLORIDE (test code=CL) 100.0 mmol/L 98-107 CARBON DIOXIDE (test code=CO2) 23.0 mmol/L 21-32 ANION GAP (test code=GAP) 12.5 10-20 GLUCOSE (test code=GLU) 119 mg/dL 74-106 BLOOD UREA NITROGEN (test code=BUN) 10 mg/dL 7-18 GLOMERULAR FILTRATION RATE (test code=GFR) > 60 mL/min >=60 Estimated GFR by using Modified MDRD formula.Chronic kidney disease is defined as either kidney damageor GFR <60 mL/min/1.73 m2 for >3 months. CREATININE (test code=CREAT) 0.70 mg/dL 0.55-1.02 Note change in reference range due to change in reagent. BUN/CREATININE RATIO (test code=BUN/CREA) 14.8 10-20 TOTAL PROTEIN (test code=PROT) 6.6 gram/dL 6.4-8.2 ALBUMIN (test code=ALB) 2.8 g/dL 3.4-5.0 GLOBULIN (test code=GLOB) 3.8 gram/dL 2.7-4.2 ALBUMIN/GLOBULIN RATIO (test code=A/G) 0.7 0.75-1.50 CALCIUM (test code=CA) 8.9 mg/dL 8.5-10.1 BILIRUBIN TOTAL (test code=BILT) 0.80 mg/dL 0.0-1.0 SGOT/AST (test code=AST) 17 IUnit/L 15-37 SGPT/ALT (test code=ALT) 16 IUnit/L 12-78 ALKALINE PHOSPHATASE TOTAL (test code=ALKP) 128 IUnit/L 45-117 Note change in reference range due to change in reagent. COMPREHENSIVE METABOLIC [id number] 07:28:00* Test Item Value Reference Range Comments SODIUM (test code=NA) 131 mmol/L 136-145 POTASSIUM (test code=K) 4.5 mmol/L 3.5-5.1 CHLORIDE (test code=CL) 100.0 mmol/L 98-107 CARBON DIOXIDE (test code=CO2) mmol/L 21-32 ANION GAP (test code=GAP) 10-20 GLUCOSE (test code=GLU) mg/dL 74-106 BLOOD UREA NITROGEN (test code=BUN) mg/dL 7-18 GLOMERULAR FILTRATION RATE (test code=GFR) mL/min >=60 CREATININE (test code=CREAT) mg/dL 0.55-1.02 BUN/CREATININE RATIO (test code=BUN/CREA) 10-20 TOTAL PROTEIN (test code=PROT) gram/dL 6.4-8.2 ALBUMIN (test code=ALB) g/dL 3.4-5.0 GLOBULIN (test code=GLOB) gram/dL 2.7-4.2 ALBUMIN/GLOBULIN RATIO (test code=A/G) 0.75-1.50 CALCIUM (test code=CA) mg/dL 8.5-10.1 BILIRUBIN TOTAL (test code=BILT) mg/dL 0.0-1.0 SGOT/AST (test code=AST) IUnit/L 15-37 SGPT/ALT (test code=ALT) IUnit/L 12-78 ALKALINE PHOSPHATASE TOTAL (test code=ALKP) IUnit/L 45-117 CBC W/AUTO [id number] 06:56:00* Test Item Value Reference Range Comments WHITE BLOOD CELL (test code=WBC) 5.9 K/mm3 4.5-12.5 RED BLOOD CELL (test code=RBC) 2.79 mill/mm3 3.7-5.2 HEMOGLOBIN (test code=HGB) 10.2 gram/dL 11.5-15.5 HEMATOCRIT (test code=HCT) 27.9 % 36.0-46.0 MEAN CELL VOLUME (test code=MCV) 100.0 fL 80-98 MEAN CELL HGB (test code=MCH) 36.6 picogram 27.0-33.0 MEAN CELL HGB CONCETRATION (test code=MCHC) 36.6 gram/dL 33.0-36.0 RED CELL DISTRIBUTION WIDTH (test code=RDW) 18.2 % 11.6-16.2 RED CELL DISTRIBUTION WIDTH SD (test code=RDW-SD) 58.2 fL 37.0-51.0 PLATELET COUNT (test code=PLT) 180 K/mm3 150-450 MEAN PLATELET VOLUME (test code=MPV) 8.3 fL 6.7-11.0 NEUTROPHIL % (test code=NT%) 80.1 % 39.0-69.0 IMMATURE GRANULOCYTE % (test code=IG%) 0.3 % 0.0-5.0 LYMPHOCYTE % (test code=LY%) 10.3 % 25.0-55.0 MONOCYTE % (test code=MO%) 6.1 % 0.0-10.0 EOSINOPHIL % (test code=EO%) 2.7 % 0.0-5.0 BASOPHIL % (test code=BA%) 0.5 % 0.0-1.0 NUCLEATED RBC % (test code=NRBC%) 0.0 % 0-0 NEUTROPHIL # (test code=NT#) 4.73 K/mm3 1.8-7.7 IMMATURE GRANULOCYTE # (test code=IG#) 0.02 x10 3/uL 0-0.03 LYMPHOCYTE # (test code=LY#) 0.61 K/mm3 1.0-5.0 MONOCYTE # (test code=MO#) 0.36 K/mm3 0-0.8 EOSINOPHIL # (test code=EO#) 0.16 K/mm3 0.0-0.5 BASOPHIL # (test code=BA#) 0.03 K/mm3 0.0-0.2 NUCLEATED RBC # (test code=NRBC#) 0.00 K/mm3 0.0-0.1 CBC W/AUTO [id number] 03:14:00* Test Item Value Reference Range Comments WHITE BLOOD CELL (test code=WBC) 6.3 K/mm3 4.5-12.5 RED BLOOD CELL (test code=RBC) 2.57 mill/mm3 3.7-5.2 HEMOGLOBIN (test code=HGB) 9.7 gram/dL 11.5-15.5 HEMATOCRIT (test code=HCT) 25.9 % 36.0-46.0 MEAN CELL VOLUME (test code=MCV) 100.8 fL 80-98 MEAN CELL HGB (test code=MCH) 37.7 picogram 27.0-33.0 MEAN CELL HGB CONCETRATION (test code=MCHC) 37.5 gram/dL 33.0-36.0 RED CELL DISTRIBUTION WIDTH (test code=RDW) 18.2 % 11.6-16.2 RED CELL DISTRIBUTION WIDTH SD (test code=RDW-SD) 57.9 fL 37.0-51.0 PLATELET COUNT (test code=PLT) 169 K/mm3 150-450 RESULT VERIFIED BY REPEAT ANALYSIS MEAN PLATELET VOLUME (test code=MPV) 8.6 fL 6.7-11.0 NEUTROPHIL % (test code=NT%) 65.9 % 39.0-69.0 IMMATURE GRANULOCYTE % (test code=IG%) 0.3 % 0.0-5.0 LYMPHOCYTE % (test code=LY%) 19.7 % 25.0-55.0 MONOCYTE % (test code=MO%) 8.7 % 0.0-10.0 EOSINOPHIL % (test code=EO%) 5.1 % 0.0-5.0 BASOPHIL % (test code=BA%) 0.3 % 0.0-1.0 NUCLEATED RBC % (test code=NRBC%) 0.0 % 0-0 NEUTROPHIL # (test code=NT#) 4.17 K/mm3 1.8-7.7 IMMATURE GRANULOCYTE # (test code=IG#) 0.02 x10 3/uL 0-0.03 LYMPHOCYTE # (test code=LY#) 1.25 K/mm3 1.0-5.0 MONOCYTE # (test code=MO#) 0.55 K/mm3 0-0.8 EOSINOPHIL # (test code=EO#) 0.32 K/mm3 0.0-0.5 BASOPHIL # (test code=BA#) 0.02 K/mm3 0.0-0.2 NUCLEATED RBC # (test code=NRBC#) 0.00 K/mm3 0.0-0.1 MANUAL DIFF REQUIRED (test code=MDIFF) NO COMPREHENSIVE METABOLIC [id number] 02:18:00* Test Item Value Reference Range Comments SODIUM (test code=NA) 139 mmol/L 136-145 POTASSIUM (test code=K) 4.2 mmol/L 3.5-5.1 CHLORIDE (test code=CL) 103.0 mmol/L 98-107 CARBON DIOXIDE (test code=CO2) 32.0 mmol/L 21-32 ANION GAP (test code=GAP) 8.2 10-20 GLUCOSE (test code=GLU) 118 mg/dL 74-106 BLOOD UREA NITROGEN (test code=BUN) 20 mg/dL 7-18 GLOMERULAR FILTRATION RATE (test code=GFR) > 60 mL/min >=60 Estimated GFR by using Modified MDRD formula.Chronic kidney disease is defined as either kidney damageor GFR <60 mL/min/1.73 m2 for >3 months. CREATININE (test code=CREAT) 0.70 mg/dL 0.55-1.02 Note change in reference range due to change in reagent. BUN/CREATININE RATIO (test code=BUN/CREA) 30.3 10-20 TOTAL PROTEIN (test code=PROT) 6.2 gram/dL 6.4-8.2 ALBUMIN (test code=ALB) 2.6 g/dL 3.4-5.0 GLOBULIN (test code=GLOB) 3.6 gram/dL 2.7-4.2 ALBUMIN/GLOBULIN RATIO (test code=A/G) 0.7 0.75-1.50 CALCIUM (test code=CA) 8.4 mg/dL 8.5-10.1 BILIRUBIN TOTAL (test code=BILT) 0.70 mg/dL 0.0-1.0 SGOT/AST (test code=AST) 12 IUnit/L 15-37 SGPT/ALT (test code=ALT) 14 IUnit/L 12-78 ALKALINE PHOSPHATASE TOTAL (test code=ALKP) 128 IUnit/L 45-117 Note change in reference range due to change in reagent. PROTHROMBIN [id number] 02:17:00* Test Item Value Reference Range Comments PROTHROMBIN TIME PATIENT (test code=PTP) 13.3 seconds 9.0-14.0 INTERNATIONAL NORMAL RATIO (test code=INR) 1.1 0.8-1.2 The therapeutic range for oral anticoagulant therapy formost indications is an international normalized ratio (INR)of between 2.0 and 3.0. The recommended therapeutic INRrange for various clinical situations is listed below: Clinical Situation INR range Pulmonary e mbolism treatment (2.0-3.0)Venous thrombosis treatmentVenous thrombosis prophylaxis (high risk surgery)Prevention of systemic embolism from: Acute myocardial infarction Valvular heart disease Atrial fibrillation Mechanical prosthetic heart valves (2.5-3.5) IS PATIENT ON ANTICOAGULANTS? NCOMPREHENSIVE METABOLIC [id number] 02:12:00 * Test Item Value Reference Range Comments SODIUM (test code=NA) 139 mmol/L 136-145 POTASSIUM (test code=K) 4.2 mmol/L 3.5-5.1 CHLORIDE (test code=CL) 103.0 mmol/L 98-107 CARBON DIOXIDE (test code=CO2) mmol/L 21-32 ANION GAP (test code=GAP) 10-20 GLUCOSE (test code=GLU) mg/dL 74-106 BLOOD UREA NITROGEN (test code=BUN) mg/dL 7-18 GLOMERULAR FILTRATION RATE (test code=GFR) mL/min >=60 CREATININE (test code=CREAT) mg/dL 0.55-1.02 BUN/CREATININE RATIO (test code=BUN/CREA) 10-20 TOTAL PROTEIN (test code=PROT) gram/dL 6.4-8.2 ALBUMIN (test code=ALB) g/dL 3.4-5.0 GLOBULIN (test code=GLOB) gram/dL 2.7-4.2 ALBUMIN/GLOBULIN RATIO (test code=A/G) 0.75-1.50 CALCIUM (test code=CA) mg/dL 8.5-10.1 BILIRUBIN TOTAL (test code=BILT) mg/dL 0.0-1.0 SGOT/AST (test code=AST) IUnit/L 15-37 SGPT/ALT (test code=ALT) IUnit/L 12-78 ALKALINE PHOSPHATASE TOTAL (test code=ALKP) IUnit/L 45-117 CBC W/AUTO [id number] 02:03:00* Test Item Value Reference Range Comments WHITE BLOOD CELL (test code=WBC) 6.6 K/mm3 4.5-12.5 RED BLOOD CELL (test code=RBC) 2.76 mill/mm3 3.7-5.2 HEMOGLOBIN (test code=HGB) 9.5 gram/dL 11.5-15.5 HEMATOCRIT (test code=HCT) 27.7 % 36.0-46.0 MEAN CELL VOLUME (test code=MCV) 100.4 fL 80-98 MEAN CELL HGB (test code=MCH) 34.4 picogram 27.0-33.0 MEAN CELL HGB CONCETRATION (test code=MCHC) 34.3 gram/dL 33.0-36.0 RED CELL DISTRIBUTION WIDTH (test code=RDW) 18.6 % 11.6-16.2 RED CELL DISTRIBUTION WIDTH SD (test code=RDW-SD) 57.4 fL 37.0-51.0 PLATELET COUNT (test code=PLT) 232 K/mm3 150-450 MEAN PLATELET VOLUME (test code=MPV) 8.7 fL 6.7-11.0 NEUTROPHIL % (test code=NT%) 63.2 % 39.0-69.0 IMMATURE GRANULOCYTE % (test code=IG%) 0.3 % 0.0-5.0 LYMPHOCYTE % (test code=LY%) 23.6 % 25.0-55.0 MONOCYTE % (test code=MO%) 8.9 % 0.0-10.0 EOSINOPHIL % (test code=EO%) 3.5 % 0.0-5.0 BASOPHIL % (test code=BA%) 0.5 % 0.0-1.0 NUCLEATED RBC % (test code=NRBC%) 0.0 % 0-0 NEUTROPHIL # (test code=NT#) 4.17 K/mm3 1.8-7.7 IMMATURE GRANULOCYTE # (test code=IG#) 0.02 x10 3/uL 0-0.03 LYMPHOCYTE # (test code=LY#) 1.56 K/mm3 1.0-5.0 MONOCYTE # (test code=MO#) 0.59 K/mm3 0-0.8 EOSINOPHIL # (test code=EO#) 0.23 K/mm3 0.0-0.5 BASOPHIL # (test code=BA#) 0.03 K/mm3 0.0-0.2 NUCLEATED RBC # (test code=NRBC#) 0.00 K/mm3 0.0-0.1 MANUAL DIFF REQUIRED (test code=MDIFF) NO CBC W/O [id number] 02:22:00* Test Item Value Reference Range Comments WHITE BLOOD CELL (test code=WBC) 10.0 K/mm3 4.5-12.5 RED BLOOD CELL (test code=RBC) 3.02 mill/mm3 3.7-5.2 HEMOGLOBIN (test code=HGB) 11.0 gram/dL 11.5-15.5 HEMATOCRIT (test code=HCT) 30.4 % 36.0-46.0 MEAN CELL VOLUME (test code=MCV) 100.7 fL 80-98 MEAN CELL HGB (test code=MCH) 36.4 picogram 27.0-33.0 MEAN CELL HGB CONCETRATION (test code=MCHC) 36.2 gram/dL 33.0-36.0 RED CELL DISTRIBUTION WIDTH (test code=RDW) 18.0 % 11.6-16.2 PLATELET COUNT (test code=PLT) 196 K/mm3 150-450 MEAN PLATELET VOLUME (test code=MPV) 8.6 fL 6.7-11.0 SPECIMEN CLOTTED SPOKE WITH ABDIEL [id number] @1254 [facility] BASIC METABOLIC [id number] 00:51:00* Test Item Value Reference Range Comments SODIUM (test code=NA) 132 mmol/L 136-145 POTASSIUM (test code=K) 4.6 mmol/L 3.5-5.1 CHLORIDE (test code=CL) 97.0 mmol/L 98-107 CARBON DIOXIDE (test code=CO2) 29.0 mmol/L 21-32 ANION GAP (test code=GAP) 10.6 10-20 GLUCOSE (test code=GLU) 107 mg/dL 74-106 BLOOD UREA NITROGEN (test code=BUN) 21 mg/dL 7-18 GLOMERULAR FILTRATION RATE (test code=GFR) > 60 mL/min >=60 Estimated GFR by using Modified MDRD formula.Chronic kidney disease is defined as either kidney damageor GFR <60 mL/min/1.73 m2 for >3 months. CREATININE (test code=CREAT) 0.60 mg/dL 0.55-1.02 Note change in reference range due to change in reagent. BUN/CREATININE RATIO (test code=BUN/CREA) 35.0 10-20 CALCIUM (test code=CA) 8.9 mg/dL 8.5-10.1 BASIC METABOLIC [id number] 00:46:00* Test Item Value Reference Range Comments SODIUM (test code=NA) 132 mmol/L 136-145 POTASSIUM (test code=K) 4.6 mmol/L 3.5-5.1 CHLORIDE (test code=CL) 97.0 mmol/L 98-107 CARBON DIOXIDE (test code=CO2) mmol/L 21-32 ANION GAP (test code=GAP) 10-20 GLUCOSE (test code=GLU) mg/dL 74-106 BLOOD UREA NITROGEN (test code=BUN) mg/dL 7-18 GLOMERULAR FILTRATION RATE (test code=GFR) mL/min >=60 CREATININE (test code=CREAT) mg/dL 0.55-1.02 BUN/CREATININE RATIO (test code=BUN/CREA) 10-20 CALCIUM (test code=CA) mg/dL 8.5-10.1 COMPREHENSIVE METABOLIC [id number] 07:57:00* Test Item Value Reference Range Comments SODIUM (test code=NA) 137 mmol/L 136-145 POTASSIUM (test code=K) 4.7 mmol/L 3.5-5.1 CHLORIDE (test code=CL) 104.0 mmol/L 98-107 CARBON DIOXIDE (test code=CO2) 27.0 mmol/L 21-32 ANION GAP (test code=GAP) 10.7 10-20 GLUCOSE (test code=GLU) 187 mg/dL 74-106 BLOOD UREA NITROGEN (test code=BUN) 18 mg/dL 7-18 GLOMERULAR FILTRATION RATE (test code=GFR) > 60 mL/min >=60 Estimated GFR by using Modified MDRD formula.Chronic kidney disease is defined as either kidney damageor GFR <60 mL/min/1.73 m2 for >3 months. CREATININE (test code=CREAT) 0.70 mg/dL 0.55-1.02 Note change in reference range due to change in reagent. BUN/CREATININE RATIO (test code=BUN/CREA) 25.7 10-20 TOTAL PROTEIN (test code=PROT) 5.7 gram/dL 6.4-8.2 ALBUMIN (test code=ALB) 2.5 g/dL 3.4-5.0 GLOBULIN (test code=GLOB) 3.2 gram/dL 2.7-4.2 ALBUMIN/GLOBULIN RATIO (test code=A/G) 0.8 0.75-1.50 CALCIUM (test code=CA) 7.9 mg/dL 8.5-10.1 BILIRUBIN TOTAL (test code=BILT) 0.50 mg/dL 0.0-1.0 SGOT/AST (test code=AST) 19 IUnit/L 15-37 SGPT/ALT (test code=ALT) 19 IUnit/L 12-78 ALKALINE PHOSPHATASE TOTAL (test code=ALKP) 112 IUnit/L 45-117 Note change in reference range due to change in reagent. COMPREHENSIVE METABOLIC [id number] 07:33:00* Test Item Value Reference Range Comments SODIUM (test code=NA) 137 mmol/L 136-145 POTASSIUM (test code=K) 4.7 mmol/L 3.5-5.1 CHLORIDE (test code=CL) 104.0 mmol/L 98-107 CARBON DIOXIDE (test code=CO2) mmol/L 21-32 ANION GAP (test code=GAP) 10-20 GLUCOSE (test code=GLU) mg/dL 74-106 BLOOD UREA NITROGEN (test code=BUN) mg/dL 7-18 GLOMERULAR FILTRATION RATE (test code=GFR) mL/min >=60 CREATININE (test code=CREAT) mg/dL 0.55-1.02 BUN/CREATININE RATIO (test code=BUN/CREA) 10-20 TOTAL PROTEIN (test code=PROT) gram/dL 6.4-8.2 ALBUMIN (test code=ALB) g/dL 3.4-5.0 GLOBULIN (test code=GLOB) gram/dL 2.7-4.2 ALBUMIN/GLOBULIN RATIO (test code=A/G) 0.75-1.50 CALCIUM (test code=CA) mg/dL 8.5-10.1 BILIRUBIN TOTAL (test code=BILT) mg/dL 0.0-1.0 SGOT/AST (test code=AST) IUnit/L 15-37 SGPT/ALT (test code=ALT) IUnit/L 12-78 ALKALINE PHOSPHATASE TOTAL (test code=ALKP) IUnit/L 45-117 - RPLC GASTROJEJNSTY [id number] 07:08:00 Name: ANA CRISTINA FLANNERY [facility] : 1935 Age/S: 83 / F [address] [facility] #: [id number] Loc: [place] [address] Phys: Adam Wood MD Acct: [id number] Dis Date: Status: ADM IN PHONE #: [phone] Exam Date: 10/26/2018 1442 FAX #: [phone] Reason: EXAMS: CPT CODE: [id number] RPLC GASTROJEJNSTY TUBE [id number] Fluoro Time: 48 DAP (Gy m2): 1950 Air Kerma (mGy): 6.58 REASON FOR EXAM: Clogged Gastrojejunostomy tube Referring physician: Adam Wood MD PROCEDURE: Fluoroscopic guided Percutaneous gastrojejunostomy tube Tube Placement CPT code: 52821, 59450 Anesthesia: Endotracheal Anesthesiologist: Dr. Villalta FINDINGS: Prior to the procedure, informed consent was obtained after risks and benefits of the procedure were explained to the patient's family. The family agreed and wanted to proceed. The patient was brought to specials procedure and placed supine on the table. The abdomen was prepped and draped in the usual fashion. All elements of maximal sterile barrier technique were followed. The retention balloon was deflated. Attempt to advance a guidewire through the existing GJ tube was not successful. A Mckeon catheter was a dvanced parallel to the GJ tube into the duodenum past the pylorus. After additional manipulation, the catheter was successfully advanced into the jejunum. A stiff glide wire was then placed. The old GJ tube was removed . A new 22-Chinese GJ tube was advanced over the guidewire with the tip positioned within the jejunum. The retention balloon was inflated. C ontrast was injected to document intraluminal position of the new GJ tube MEDICATIONS: 1 g of Ancef. COMPLICATIONS: None. Blood loss: less than 5cc Fluoroscopic time:48 sec Fluoroscopic dose:6.6 mGy IMPRESSION: New 22-Chinese GJ tube is ready for use. a t [id number] Reported and signed by: Raheel Gates M.D. PAGE 1 Signed Report (CONTINUED) Name: ANA CRISTINA LEWIS [facility] : [birth year] Age/S: 83 / F [address] [facility] Unit #: [id number] Loc: [place] [address] Phys: Adam Wood MD Acct: [id number] Dis Date: Status: ADM IN PHONE #: [phone] Exam Date: 10/26/2018 1442 FAX #: [phone] Re ason: EXAMS: CPT CODE: [id number] RPLC GASTROJEJNSTY TUBE [id number] Fluoro Time: 48 DAP (Gy m2): 1950 Air Kerma (mGy): 6.58 <Continued> CC: Adma Wood MD; Dr. Jeff Gutierres Technologist: Gayle Peres RT(R) Trnscb Date/Time: 10/27/2018 (08) [email or web address] Orig Print D/T: S: 10/27/2018 (0797) PAGE 2 Signed Report CBC W/AUTO [id number] 06:13:00* Test Item Value Reference Range Comments WHITE BLOOD CELL (test code=WBC) 6.3 K/mm3 4.5-12.5 RED BLOOD CELL (test code=RBC) 2.66 mill/mm3 3.7-5.2 HEMOGLOBIN (test code=HGB) 9.5 gram/dL 11.5-15.5 HEMATOCRIT (test code=HCT) 27.4 % 36.0-46.0 MEAN CELL VOLUME (test code=MCV) 103.0 fL 80-98 MEAN CELL HGB (test code=MCH) 35.7 picogram 27.0-33.0 MEAN CELL HGB CONCETRATION (test code=MCHC) 34.7 gram/dL 33.0-36.0 RED CELL DISTRIBUTION WIDTH (test code=RDW) 16.7 % 11.6-16.2 RED CELL DISTRIBUTION WIDTH SD (test code=RDW-SD) 54.1 fL 37.0-51.0 PLATELET COUNT (test code=PLT) 178 K/mm3 150-450 MEAN PLATELET VOLUME (test code=MPV) 8.8 fL 6.7-11.0 NEUTROPHIL % (test code=NT%) 74.3 % 39.0-69.0 IMMATURE GRANULOCYTE % (test code=IG%) 0.3 % 0.0-5.0 LYMPHOCYTE % (test code=LY%) 19.1 % 25.0-55.0 MONOCYTE % (test code=MO%) 5.3 % 0.0-10.0 EOSINOPHIL % (test code=EO%) 0.8 % 0.0-5.0 BASOPHIL % (test code=BA%) 0.2 % 0.0-1.0 NUCLEATED RBC % (test code=NRBC%) 0.0 % 0-0 NEUTROPHIL # (test code=NT#) 4.67 K/mm3 1.8-7.7 IMMATURE GRANULOCYTE # (test code=IG#) 0.02 x10 3/uL 0-0.03 LYMPHOCYTE # (test code=LY#) 1.20 K/mm3 1.0-5.0 MONOCYTE # (test code=MO#) 0.33 K/mm3 0-0.8 EOSINOPHIL # (test code=EO#) 0.05 K/mm3 0.0-0.5 BASOPHIL # (test code=BA#) 0.01 K/mm3 0.0-0.2 NUCLEATED RBC # (test code=NRBC#) 0.00 K/mm3 0.0-0.1 BASIC METABOLIC [id number] 07:23:00* Test Item Value Reference Range Comments SODIUM (test code=NA) 137 mmol/L 136-145 POTASSIUM (test code=K) 4.1 mmol/L 3.5-5.1 CHLORIDE (test code=CL) 106.0 mmol/L 98-107 CARBON DIOXIDE (test code=CO2) 27.0 mmol/L 21-32 ANION GAP (test code=GAP) 8.1 10-20 GLUCOSE (test code=GLU) 111 mg/dL 74-106 BLOOD UREA NITROGEN (test code=BUN) 22 mg/dL 7-18 RESULT VERIFIED BY REPEAT ANALYSIS GLOMERULAR FILTRATION RATE (test code=GFR) > 60 mL/min >=60 Estimated GFR by using Modified MDRD formula.Chronic kidney disease is defined as either kidney damageor GFR <60 mL/min/1.73 m2 for >3 months. CREATININE (test code=CREAT) 0.50 mg/dL 0.55-1.02 Note change in reference range due to change in reagent. BUN/CREATININE RATIO (test code=BUN/CREA) 44.0 10-20 CALCIUM (test code=CA) 8.2 mg/dL 8.5-10.1 BASIC METABOLIC [id number] 07:08:00* Test Item Value Reference Range Comments SODIUM (test code=NA) 137 mmol/L 136-145 POTASSIUM (test code=K) 4.1 mmol/L 3.5-5.1 CHLORIDE (test code=CL) 106.0 mmol/L 98-107 CARBON DIOXIDE (test code=CO2) mmol/L 21-32 ANION GAP (test code=GAP) 10-20 GLUCOSE (test code=GLU) mg/dL 74-106 BLOOD UREA NITROGEN (test code=BUN) mg/dL 7-18 GLOMERULAR FILTRATION RATE (test code=GFR) mL/min >=60 CREATININE (test code=CREAT) mg/dL 0.55-1.02 BUN/CREATININE RATIO (test code=BUN/CREA) 10-20 CALCIUM (test code=CA) mg/dL 8.5-10.1 CBC W/AUTO [id number] 06:50:00* Test Item Value Reference Range Comments WHITE BLOOD CELL (test code=WBC) 3.8 K/mm3 4.5-12.5 RED BLOOD CELL (test code=RBC) 2.58 mill/mm3 3.7-5.2 HEMOGLOBIN (test code=HGB) 9.2 gram/dL 11.5-15.5 HEMATOCRIT (test code=HCT) 26.5 % 36.0-46.0 MEAN CELL VOLUME (test code=MCV) 102.7 fL 80-98 MEAN CELL HGB (test code=MCH) 35.7 picogram 27.0-33.0 MEAN CELL HGB CONCETRATION (test code=MCHC) 34.7 gram/dL 33.0-36.0 RED CELL DISTRIBUTION WIDTH (test code=RDW) 17.0 % 11.6-16.2 RED CELL DISTRIBUTION WIDTH SD (test code=RDW-SD) 55.4 fL 37.0-51.0 PLATELET COUNT (test code=PLT) 181 K/mm3 150-450 MEAN PLATELET VOLUME (test code=MPV) 8.6 fL 6.7-11.0 NEUTROPHIL % (test code=NT%) 55.7 % 39.0-69.0 IMMATURE GRANULOCYTE % (test code=IG%) 0.3 % 0.0-5.0 LYMPHOCYTE % (test code=LY%) 29.2 % 25.0-55.0 MONOCYTE % (test code=MO%) 9.1 % 0.0-10.0 EOSINOPHIL % (test code=EO%) 5.2 % 0.0-5.0 BASOPHIL % (test code=BA%) 0.5 % 0.0-1.0 NUCLEATED RBC % (test code=NRBC%) 0.0 % 0-0 NEUTROPHIL # (test code=NT#) 2.13 K/mm3 1.8-7.7 IMMATURE GRANULOCYTE # (test code=IG#) 0.01 x10 3/uL 0-0.03 LYMPHOCYTE # (test code=LY#) 1.12 K/mm3 1.0-5.0 MONOCYTE # (test code=MO#) 0.35 K/mm3 0-0.8 EOSINOPHIL # (test code=EO#) 0.20 K/mm3 0.0-0.5 BASOPHIL # (test code=BA#) 0.02 K/mm3 0.0-0.2 NUCLEATED RBC # (test code=NRBC#) 0.00 K/mm3 0.0-0.1 MANUAL DIFF REQUIRED (test code=MDIFF) NO B-TYPE NATRIURETIC [id number] 09:52:00* Test Item Value Reference Range Comments B-TYPE NATRIURETIC PEPTIDE (test code=BNP) 169.19 pgram/mL 0-100 PT COMBATIVECOMPREHENSIVE METABOLIC [id number] 09:42:00* Test Item Value Reference Range Comments SODIUM (test code=NA) 141 mmol/L 136-145 POTASSIUM (test code=K) 4.4 mmol/L 3.5-5.1 CHLORIDE (test code=CL) 104.0 mmol/L 98-107 CARBON DIOXIDE (test code=CO2) 31.0 mmol/L 21-32 ANION GAP (test code=GAP) 10.4 10-20 GLUCOSE (test code=GLU) 97 mg/dL 74-106 BLOOD UREA NITROGEN (test code=BUN) 35 mg/dL 7-18 GLOMERULAR FILTRATION RATE (test code=GFR) > 60 mL/min >=60 Estimated GFR by using Modified MDRD formula.Chronic kidney disease is defined as either kidney damageor GFR <60 mL/min/1.73 m2 for >3 months. CREATININE (test code=CREAT) 0.60 mg/dL 0.55-1.02 Note change in reference range due to change in reagent. BUN/CREATININE RATIO (test code=BUN/CREA) 58.3 10-20 TOTAL PROTEIN (test code=PROT) 6.3 gram/dL 6.4-8.2 ALBUMIN (test code=ALB) 2.7 g/dL 3.4-5.0 GLOBULIN (test code=GLOB) 3.6 gram/dL 2.7-4.2 ALBUMIN/GLOBULIN RATIO (test code=A/G) 0.8 0.75-1.50 CALCIUM (test code=CA) 8.3 mg/dL 8.5-10.1 BILIRUBIN TOTAL (test code=BILT) 0.60 mg/dL 0.0-1.0 SGOT/AST (test code=AST) 25 IUnit/L 15-37 SGPT/ALT (test code=ALT) 23 IUnit/L 12-78 ALKALINE PHOSPHATASE TOTAL (test code=ALKP) 133 IUnit/L 45-117 Note change in reference range due to change in reagent. PT [id number] 09:42:00* Test Item Value Reference Range Comments LIPASE (test code=LIP) 41 U/L 73.0-393.0 PT COMBATIVETHYROID STIMULATING [id number] 09:42:00* Test Item Value Reference Range Comments THYROID STIMULATING HORMONE (test code=TSH) 10.000 uIU/mL 0.36-3.74 TSH REFERENCE RANGES: EUTHYROID: 0.35 - 4.3 mIU/mL HYPO : > 5.5 mIU/mL HYPER : < 0.35 mIU/mL PT COMBATIVECOMPREHENSIVE METABOLIC [id number] 09:24:00* Test Item Value Reference Range Comments SODIUM (test code=NA) 141 mmol/L 136-145 POTASSIUM (test code=K) 4.4 mmol/L 3.5-5.1 CHLORIDE (test code=CL) 104.0 mmol/L 98-107 CARBON DIOXIDE (test code=CO2) mmol/L 21-32 ANION GAP (test code=GAP) 10-20 GLUCOSE (test code=GLU) mg/dL 74-106 BLOOD UREA NITROGEN (test code=BUN) mg/dL 7-18 GLOMERULAR FILTRATION RATE (test code=GFR) mL/min >=60 CREATININE (test code=CREAT) mg/dL 0.55-1.02 BUN/CREATININE RATIO (test code=BUN/CREA) 10-20 TOTAL PROTEIN (test code=PROT) gram/dL 6.4-8.2 ALBUMIN (test code=ALB) g/dL 3.4-5.0 GLOBULIN (test code=GLOB) gram/dL 2.7-4.2 ALBUMIN/GLOBULIN RATIO (test code=A/G) 0.75-1.50 CALCIUM (test code=CA) mg/dL 8.5-10.1 BILIRUBIN TOTAL (test code=BILT) mg/dL 0.0-1.0 SGOT/AST (test code=AST) IUnit/L 15-37 SGPT/ALT (test code=ALT) IUnit/L 12-78 ALKALINE PHOSPHATASE TOTAL (test code=ALKP) IUnit/L 45-117 PT [id number] 09:24:00* Test Item Value Reference Range Comments LIPASE (test code=LIP) U/L 73.0-393.0 PT COMBATIVETHYROID STIMULATING [id number] 09:24:00* Test Item Value Reference Range Comments THYROID STIMULATING HORMONE (test code=TSH) uIU/mL 0.36-3.74 PT COMBATIVECBC W/AUTO [id number] 08:56:00* Test Item Value Reference Range Comments WHITE BLOOD CELL (test code=WBC) 4.3 K/mm3 4.5-12.5 RED BLOOD CELL (test code=RBC) 2.89 mill/mm3 3.7-5.2 HEMOGLOBIN (test code=HGB) 10.2 gram/dL 11.5-15.5 HEMATOCRIT (test code=HCT) 30.2 % 36.0-46.0 MEAN CELL VOLUME (test code=MCV) 104.5 fL 80-98 MEAN CELL HGB (test code=MCH) 35.3 picogram 27.0-33.0 MEAN CELL HGB CONCETRATION (test code=MCHC) 33.8 gram/dL 33.0-36.0 RED CELL DISTRIBUTION WIDTH (test code=RDW) 17.1 % 11.6-16.2 RED CELL DISTRIBUTION WIDTH SD (test code=RDW-SD) 57.1 fL 37.0-51.0 PLATELET COUNT (test code=PLT) 197 K/mm3 150-450 MEAN PLATELET VOLUME (test code=MPV) 8.6 fL 6.7-11.0 NEUTROPHIL % (test code=NT%) 66.2 % 39.0-69.0 IMMATURE GRANULOCYTE % (test code=IG%) 0.5 % 0.0-5.0 LYMPHOCYTE % (test code=LY%) 23.1 % 25.0-55.0 MONOCYTE % (test code=MO%) 7.4 % 0.0-10.0 EOSINOPHIL % (test code=EO%) 2.3 % 0.0-5.0 BASOPHIL % (test code=BA%) 0.5 % 0.0-1.0 NUCLEATED RBC % (test code=NRBC%) 0.0 % 0-0 NEUTROPHIL # (test code=NT#) 2.86 K/mm3 1.8-7.7 IMMATURE GRANULOCYTE # (test code=IG#) 0.02 x10 3/uL 0-0.03 LYMPHOCYTE # (test code=LY#) 1.00 K/mm3 1.0-5.0 MONOCYTE # (test code=MO#) 0.32 K/mm3 0-0.8 EOSINOPHIL # (test code=EO#) 0.10 K/mm3 0.0-0.5 BASOPHIL # (test code=BA#) 0.02 K/mm3 0.0-0.2 NUCLEATED RBC # (test code=NRBC#) 0.00 K/mm3 0.0-0.1 MANUAL DIFF REQUIRED (test code=MDIFF) NO PT COMBATIVEPROTHROMBIN [id number] 11:36:00* Test Item Value Reference Range Comments PROTHROMBIN TIME PATIENT (test code=PTP) 12.6 seconds 9.0-14.0 INTERNATIONAL NORMAL RATIO (test code=INR) 1.1 0.8-1.2 The therapeutic range for oral anticoagulant therapy formost indications is an international normalized ratio (INR)of between 2.0 and 3.0. The recommended therapeutic INRrange for various clinical situations is listed below: Clinical Situation INR range Pulmonary e mbolism treatment (2.0-3.0)Venous thrombosis treatmentVenous thrombosis prophylaxis (high risk surgery)Prevention of systemic embolism from: Acute myocardial infarction Valvular heart disease Atrial fibrillation Mechanical prosthetic heart valves (2.5-3.5) IS PATIENT ON ANTICOAGULANTS? YLIST ANTICOAGULANTS ASPIRINTHROMBOPLASTIN TIME [id number] 11:36:00* Test Item Value Reference Range Comments THROMBOPLASTIN TIME PARTIAL (test code=PTT) 24.2 seconds 25.0-36.5 IS PATIENT ON ANTICOAGULANTS? YLIST ANTICOAGULANTS ASPIRINBASIC METABOLIC [id number] 03:36:00* Test Item Value Reference Range Comments SODIUM (test code=NA) 141 mmol/L 136-145 POTASSIUM (test code=K) 4.0 mmol/L 3.5-5.1 CHLORIDE (test code=CL) 103.0 mmol/L 98-107 CARBON DIOXIDE (test code=CO2) 34.0 mmol/L 21-32 ANION GAP (test code=GAP) 8.0 10-20 GLUCOSE (test code=GLU) 84 mg/dL 74-106 BLOOD UREA NITROGEN (test code=BUN) 37 mg/dL 7-18 GLOMERULAR FILTRATION RATE (test code=GFR) > 60 mL/min >=60 Estimated GFR by using Modified MDRD formula.Chronic kidney disease is defined as either kidney damageor GFR <60 mL/min/1.73 m2 for >3 months. CREATININE (test code=CREAT) 0.60 mg/dL 0.55-1.02 Note change in reference range due to change in reagent. BUN/CREATININE RATIO (test code=BUN/CREA) 61.6 10-20 CALCIUM (test code=CA) 8.5 mg/dL 8.5-10.1 BASIC METABOLIC [id number] 03:32:00* Test Item Value Reference Range Comments SODIUM (test code=NA) 141 mmol/L 136-145 POTASSIUM (test code=K) 4.0 mmol/L 3.5-5.1 CHLORIDE (test code=CL) 103.0 mmol/L 98-107 CARBON DIOXIDE (test code=CO2) mmol/L 21-32 ANION GAP (test code=GAP) 10-20 GLUCOSE (test code=GLU) mg/dL 74-106 BLOOD UREA NITROGEN (test code=BUN) mg/dL 7-18 GLOMERULAR FILTRATION RATE (test code=GFR) mL/min >=60 CREATININE (test code=CREAT) mg/dL 0.55-1.02 BUN/CREATININE RATIO (test code=BUN/CREA) 10-20 CALCIUM (test code=CA) mg/dL 8.5-10.1 CBC W/AUTO [id number] 03:21:00* Test Item Value Reference Range Comments WHITE BLOOD CELL (test code=WBC) 4.3 K/mm3 4.5-12.5 RED BLOOD CELL (test code=RBC) 2.97 mill/mm3 3.7-5.2 HEMOGLOBIN (test code=HGB) 10.2 gram/dL 11.5-15.5 HEMATOCRIT (test code=HCT) 30.9 % 36.0-46.0 MEAN CELL VOLUME (test code=MCV) 104.0 fL 80-98 MEAN CELL HGB (test code=MCH) 34.3 picogram 27.0-33.0 MEAN CELL HGB CONCETRATION (test code=MCHC) 33.0 gram/dL 33.0-36.0 RED CELL DISTRIBUTION WIDTH (test code=RDW) 17.1 % 11.6-16.2 RED CELL DISTRIBUTION WIDTH SD (test code=RDW-SD) 56.8 fL 37.0-51.0 PLATELET COUNT (test code=PLT) 193 K/mm3 150-450 MEAN PLATELET VOLUME (test code=MPV) 8.5 fL 6.7-11.0 NEUTROPHIL % (test code=NT%) 61.0 % 39.0-69.0 IMMATURE GRANULOCYTE % (test code=IG%) 0.5 % 0.0-5.0 LYMPHOCYTE % (test code=LY%) 25.6 % 25.0-55.0 MONOCYTE % (test code=MO%) 8.2 % 0.0-10.0 EOSINOPHIL % (test code=EO%) 4.2 % 0.0-5.0 BASOPHIL % (test code=BA%) 0.5 % 0.0-1.0 NUCLEATED RBC % (test code=NRBC%) 0.0 % 0-0 NEUTROPHIL # (test code=NT#) 2.59 K/mm3 1.8-7.7 IMMATURE GRANULOCYTE # (test code=IG#) 0.02 x10 3/uL 0-0.03 LYMPHOCYTE # (test code=LY#) 1.09 K/mm3 1.0-5.0 MONOCYTE # (test code=MO#) 0.35 K/mm3 0-0.8 EOSINOPHIL # (test code=EO#) 0.18 K/mm3 0.0-0.5 BASOPHIL # (test code=BA#) 0.02 K/mm3 0.0-0.2 NUCLEATED RBC # (test code=NRBC#) 0.00 K/mm3 0.0-0.1 [id number] 02:54:00* Test Item Value Reference Range Comments GLUANISH (test code=GLUBED) 89 mg/dL 74-106 Performed by certified dye reel operator helper at [facility] (Formerly [facility]) - CT C-SPINE W/O [id number] 15:51:00 Name: ANA CRISTINA FLANNERY [facility] : 1935 Age/S: 83 / F [address] [facility] Unit #: [id number] Loc: [place] [address] Phys: Stone Ulloa DO Acct: [id number] Dis Date: Status: REG ER PHONE #: [phone] Exam Date: 10/23/2018 1523 FAX #: [phone] Reason: bruise EXAMS: CPT CODE: [id number] CT C-SPINE W/O CONTRAST 13690 HISTORY: bruise TECHNIQUE: Noncontrast 2.[address] of the head and cervical spine. Examination acquired within 24 hours of arrival. Automated exposure control for dose reduction. COMPARISON: Noncontrast CT brain September 21, 2018 FINDINGS: No acute hemorrhage. No intracranial mass, mass effect, or midline shift. No CT evidence of acute infarct. There is extensive severe cortical atrophy involving both the cerebrum and cerebellum. There is also ventriculomegaly. There is also extensive chronic microvascular ischemic changes of the periventricular white matter. This is unchanged from the previous study however. There is a small amount of mucus within the sphenoid sinus. The remaining visualized paranasal Paranasal sinuses are clear. There is cerumen within the bilateral external auditory canals. Mastoid air cells and middle ear cavities are clear. Postsurgical changes of lens extraction bilaterally, similar to prior exam. Calvarium and skull base are intact. No acute fracture or subluxation in the cervical spine. Craniocervical and cervicothoracic articulations are appropriate. Vertebral body alignment is satisfactory. There is height loss of vertebral bodies C4-C6 and decreased height of the C5-C6 and C6-C7 intervertebral disc spaces. There is also facet hypertrophy throughout the cervical spine causing mild foraminal narrowing is most pronounced in the mid to lower cervical spine. No prevertebral or paraspinal soft tissue abnormality. Lung apices are clear. IMPRESSION: No acute intracranial process. Extensive cortical atrophy, ventriculomegaly, and microvascular ischemic changes are stable from the previous study. Degenerative changes of the cervical spine but no evidence of fracture or traumatic dislocation. PAGE 1 Signed Report (CONTINUED) Name: ANA CRISTINA FLANNERY [facility] : 0 1935 Age/S: 83 / F [address] Unit #: [id number] Loc: [place] [address] Phys: Stone Ulloa DO Acct: [id number] Dis D ate: Status: REG ER PHONE #: Exam Date: 10/23/2018 1523 FAX #: [phone] Reason: bruise EXAMS: CPT CODE: [id number] CT C-SPINE W/O C ONTRAST 86796 <Continued> at 1551 Reported and signed by: Ron Roldan MD CC: Dr. Jeff Gutierres; Stone Ulloa DO Technolo gist:Pamela Posada RT(R),CT; CTDI: DLP: Trnscb Date/Time: 10/23/2018 (1551) [email or web address] Orig Print D/T: S: 10/23/2018 (1554) PAGE 2 Signed Report - CT HEAD/BRAIN W/O [id number] 15:51:00 Name: ANA CRISTINA FLANNERY [facility] : 1935 Age/S: 83 / F [address] Unit #: [id number] Loc: [place] [address] Phys: Stone Ulloa DO Acct: [id number] Dis Date: Status: REG ER PHONE #: [phone] Exam Date: 10/23/2018 1523 FAX #: [phone] Reason: bruise EXAMS: CPT CODE: [id number] CT HEAD/BRAIN W/O CONT 77763 HISTORY: bruise TECHNIQUE: Noncontrast 2.[address] of the head and cervical spine. Examination acquired within 24 hours of arrival. Automated exposure control for dose reduction. COMPARISON: Noncontrast CT brain September 21, 2018 FINDINGS: No acute hemorrhage. No intracranial mass, mass effect, or midline shift. No CT evidence of acute infarct. There is extensive severe cortical atrophy involving both the cerebrum and cerebellum. There is also ventriculomegaly. There is also extensive chronic microvascular ischemic changes of the periventricular white matter. This is unchanged from the previous study however. There is a small amount of mucus within the sphenoid sinus. The remaining visualized paranasal Paranasal sinuses are clear. There is cerumen within the bilateral external auditory canals. Mastoid air cells and middle ear cavities are clear. Postsurgical changes of lens extraction bilaterally, similar to prior exam. Calvarium and skull base are intact. No acute fracture or subluxation in the cervical spine. Craniocervical and cervicothoracic articulations are appropriate. Vertebral body alignment is satisfactory. There is height loss of vertebral bodies C4-C6 and decreased height of the C5-C6 and C6-C7 intervertebral disc spaces. There is also facet hypertrophy throughout the cervical spine causing mild foraminal narrowing is most pronounced in the mid to lower cervical spine. No prevertebral or paraspinal soft tissue abnormality. Lung apices are clear. IMPRESSION: No acute intracranial process. Extensive cortical atrophy, ventriculomegaly, and microvascular ischemic changes are stable from the previous study. Degenerative changes of the cervical spine but no evidence of fracture or traumatic dislocation. PAGE 1 Signed Report (CONTINUED) Name: ANA CRISTINA FLANNERY [facility] : 0 1935 Age/S: 83 / F [address] [facility] Unit #: [id number] Loc: [place] [address] Phys: Stone Ulloa DO Acct: [id number] Dis D ate: Status: REG ER PHONE #: [phone] Exam Date: 10/23/2018 1523 FAX #: [phone] Reason: bruise EXAMS: CPT CODE: [id number] CT HEAD/BRAIN W/O CONT 28410 <Continued> at 1551 Reported and signed by: Ron Roldan MD CC: Dr. Jeff Gutierres; Stone Ulloa DO Technologist:Pamela Posada RT(R),CT; CTDI: DLP: Trnscb Date/Time: 10/23/2018 (1213) [email or web address] Orig Print D/T: S: 10/23/2018 (6443) PAGE 2 Signed Report CBC W/MANUAL [id number] 09:28:00* Test Item Value Reference Range Comments WHITE BLOOD CELL (test code=WBC) 4.5 K/mm3 4.5-12.5 RED BLOOD CELL (test code=RBC) 2.82 mill/mm3 3.7-5.2 HEMOGLOBIN (test code=HGB) 9.8 gram/dL 11.5-15.5 HEMATOCRIT (test code=HCT) 28.4 % 36.0-46.0 MEAN CELL VOLUME (test code=MCV) 100.7 fL 80-98 MEAN CELL HGB (test code=MCH) 34.8 picogram 27.0-33.0 MEAN CELL HGB CONCETRATION (test code=MCHC) 34.5 gram/dL 33.0-36.0 RED CELL DISTRIBUTION WIDTH (test code=RDW) 16.7 % 11.6-16.2 RED CELL DISTRIBUTION WIDTH SD (test code=RDW-SD) 54.8 fL 37.0-51.0 PLATELET COUNT (test code=PLT) 176 K/mm3 150-450 MEAN PLATELET VOLUME (test code=MPV) 9.0 fL 6.7-11.0 IMMATURE GRANULOCYTE % (test code=IG%) 0.2 % 0.0-5.0 NUCLEATED RBC % (test code=NRBC%) 0.0 % 0-0 NEUTROPHIL # (test code=NT#) 2.93 K/mm3 1.8-7.7 IMMATURE GRANULOCYTE # (test code=IG#) 0.01 x10 3/uL 0-0.03 LYMPHOCYTE # (test code=LY#) 0.92 K/mm3 1.0-5.0 MONOCYTE # (test code=MO#) 0.40 K/mm3 0-0.8 EOSINOPHIL # (test code=EO#) 0.24 K/mm3 0.0-0.5 BASOPHIL # (test code=BA#) 0.01 K/mm3 0.0-0.2 NUCLEATED RBC # (test code=NRBC#) 0.00 K/mm3 0.0-0.1 MANUAL DIFF REQUIRED (test code=MDIFF) YES STAIN ACCEPTABILITY (test code=STN ACCEPTABLE) STAIN ACCEPTABLE TOTAL CELLS COUNTED (test code=TCC) 115 #CELLS SEGMENTED NEUTROPHILS (test code=SEG) 64.4 % 39-69 BAND NEUTROPHIL (test code=BAND) 1.7 % 0-10 LYMPHOCYTE (test code=LYMPH) 17.4 % 25-55 REACTIVE LYMPH (test code=RELYMPH) 1.7 % MONOCYTE (test code=MON) 9.6 % 0-10 EOSINOPHIL (test code=EOS) 5.2 % 0.0-5.0 BASOPHIL (test code=BASO) 0 % 0-1.0 METAMYELOCYTE (test code=META) 0 % 0-0 MYELOCYTE (test code=MYELO) 0 % 0.0-0.0 PROMYELOCYTE (test code=PROM) 0 % 0-0 POLYCHROMASIA (test code=POLC) 1+ ANISOCYTOSIS (test code=ANISO) 1+ MACROCYTOSIS (test code=MACR) 1+ PLATELET ESTIMATE (test code=PLTEST) ADEQUATE PLATELET MORPHOLOGY (test code=PLTMORPH) NORMAL IMMATURE FORMS (test code=IMMAT) 0 % 0-0 COMPREHENSIVE METABOLIC [id number] 07:08:00* Test Item Value Reference Range Comments SODIUM (test code=NA) 137 mmol/L 136-145 POTASSIUM (test code=K) 4.6 mmol/L 3.5-5.1 CHLORIDE (test code=CL) 102.0 mmol/L 98-107 CARBON DIOXIDE (test code=CO2) 30.0 mmol/L 21-32 ANION GAP (test code=GAP) 9.6 10-20 GLUCOSE (test code=GLU) 107 mg/dL 74-106 BLOOD UREA NITROGEN (test code=BUN) 40 mg/dL 7-18 GLOMERULAR FILTRATION RATE (test code=GFR) > 60 mL/min >=60 Estimated GFR by using Modified MDRD formula.Chronic kidney disease is defined as either kidney damageor GFR <60 mL/min/1.73 m2 for >3 months. CREATININE (test code=CREAT) 0.70 mg/dL 0.55-1.02 Note change in reference range due to change in reagent. BUN/CREATININE RATIO (test code=BUN/CREA) 57.1 10-20 TOTAL PROTEIN (test code=PROT) 6.4 gram/dL 6.4-8.2 ALBUMIN (test code=ALB) 2.6 g/dL 3.4-5.0 GLOBULIN (test code=GLOB) 3.8 gram/dL 2.7-4.2 ALBUMIN/GLOBULIN RATIO (test code=A/G) 0.7 0.75-1.50 CALCIUM (test code=CA) 8.5 mg/dL 8.5-10.1 BILIRUBIN TOTAL (test code=BILT) 0.20 mg/dL 0.0-1.0 SGOT/AST (test code=AST) 11 IUnit/L 15-37 SGPT/ALT (test code=ALT) 13 IUnit/L 12-78 ALKALINE PHOSPHATASE TOTAL (test code=ALKP) 78 IUnit/L 45-117 Note change in reference range due to change in reagent. COMPREHENSIVE METABOLIC [id number] 06:58:00* Test Item Value Reference Range Comments SODIUM (test code=NA) 137 mmol/L 136-145 POTASSIUM (test code=K) 4.6 mmol/L 3.5-5.1 CHLORIDE (test code=CL) 102.0 mmol/L 98-107 CARBON DIOXIDE (test code=CO2) mmol/L 21-32 ANION GAP (test code=GAP) 10-20 GLUCOSE (test code=GLU) mg/dL 74-106 BLOOD UREA NITROGEN (test code=BUN) mg/dL 7-18 GLOMERULAR FILTRATION RATE (test code=GFR) mL/min >=60 CREATININE (test code=CREAT) mg/dL 0.55-1.02 BUN/CREATININE RATIO (test code=BUN/CREA) 10-20 TOTAL PROTEIN (test code=PROT) gram/dL 6.4-8.2 ALBUMIN (test code=ALB) g/dL 3.4-5.0 GLOBULIN (test code=GLOB) gram/dL 2.7-4.2 ALBUMIN/GLOBULIN RATIO (test code=A/G) 0.75-1.50 CALCIUM (test code=CA) mg/dL 8.5-10.1 BILIRUBIN TOTAL (test code=BILT) mg/dL 0.0-1.0 SGOT/AST (test code=AST) IUnit/L 15-37 SGPT/ALT (test code=ALT) IUnit/L 12-78 ALKALINE PHOSPHATASE TOTAL (test code=ALKP) IUnit/L 45-117 CBC W/MANUAL [id number] 06:57:00* Test Item Value Reference Range Comments WHITE BLOOD CELL (test code=WBC) 4.5 K/mm3 4.5-12.5 RED BLOOD CELL (test code=RBC) 2.82 mill/mm3 3.7-5.2 HEMOGLOBIN (test code=HGB) 9.8 gram/dL 11.5-15.5 HEMATOCRIT (test code=HCT) 28.4 % 36.0-46.0 MEAN CELL VOLUME (test code=MCV) 100.7 fL 80-98 MEAN CELL HGB (test code=MCH) 34.8 picogram 27.0-33.0 MEAN CELL HGB CONCETRATION (test code=MCHC) 34.5 gram/dL 33.0-36.0 RED CELL DISTRIBUTION WIDTH (test code=RDW) 16.7 % 11.6-16.2 RED CELL DISTRIBUTION WIDTH SD (test code=RDW-SD) 54.8 fL 37.0-51.0 PLATELET COUNT (test code=PLT) 176 K/mm3 150-450 MEAN PLATELET VOLUME (test code=MPV) 9.0 fL 6.7-11.0 IMMATURE GRANULOCYTE % (test code=IG%) 0.2 % 0.0-5.0 NUCLEATED RBC % (test code=NRBC%) 0.0 % 0-0 NEUTROPHIL # (test code=NT#) 2.93 K/mm3 1.8-7.7 IMMATURE GRANULOCYTE # (test code=IG#) 0.01 x10 3/uL 0-0.03 LYMPHOCYTE # (test code=LY#) 0.92 K/mm3 1.0-5.0 MONOCYTE # (test code=MO#) 0.40 K/mm3 0-0.8 EOSINOPHIL # (test code=EO#) 0.24 K/mm3 0.0-0.5 BASOPHIL # (test code=BA#) 0.01 K/mm3 0.0-0.2 NUCLEATED RBC # (test code=NRBC#) 0.00 K/mm3 0.0-0.1 MANUAL DIFF REQUIRED (test code=MDIFF) YES STAIN ACCEPTABILITY (test code=STN ACCEPTABLE) TOTAL CELLS COUNTED (test code=TCC) #CELLS SEGMENTED NEUTROPHILS (test code=SEG) % 39-69 LYMPHOCYTE (test code=LYMPH) % 25-55 MONOCYTE (test code=MON) % 0-10 EOSINOPHIL (test code=EOS) % 0.0-5.0 CABOT RINGS (test code=CAB) MORPHOLOGY COMMENT (test code=MOC) PLATELET ESTIMATE (test code=PLTEST) PLATELET MORPHOLOGY (test code=PLTMORPH) CBC W/MANUAL [id number] 06:57:00* Test Item Value Reference Range Comments WHITE BLOOD CELL (test code=WBC) 4.5 K/mm3 4.5-12.5 RED BLOOD CELL (test code=RBC) 2.82 mill/mm3 3.7-5.2 HEMOGLOBIN (test code=HGB) 9.8 gram/dL 11.5-15.5 HEMATOCRIT (test code=HCT) 28.4 % 36.0-46.0 MEAN CELL VOLUME (test code=MCV) 100.7 fL 80-98 MEAN CELL HGB (test code=MCH) 34.8 picogram 27.0-33.0 MEAN CELL HGB CONCETRATION (test code=MCHC) 34.5 gram/dL 33.0-36.0 RED CELL DISTRIBUTION WIDTH (test code=RDW) 16.7 % 11.6-16.2 RED CELL DISTRIBUTION WIDTH SD (test code=RDW-SD) 54.8 fL 37.0-51.0 PLATELET COUNT (test code=PLT) 176 K/mm3 150-450 MEAN PLATELET VOLUME (test code=MPV) 9.0 fL 6.7-11.0 IMMATURE GRANULOCYTE % (test code=IG%) 0.2 % 0.0-5.0 NUCLEATED RBC % (test code=NRBC%) 0.0 % 0-0 NEUTROPHIL # (test code=NT#) 2.93 K/mm3 1.8-7.7 IMMATURE GRANULOCYTE # (test code=IG#) 0.01 x10 3/uL 0-0.03 LYMPHOCYTE # (test code=LY#) 0.92 K/mm3 1.0-5.0 MONOCYTE # (test code=MO#) 0.40 K/mm3 0-0.8 EOSINOPHIL # (test code=EO#) 0.24 K/mm3 0.0-0.5 BASOPHIL # (test code=BA#) 0.01 K/mm3 0.0-0.2 NUCLEATED RBC # (test code=NRBC#) 0.00 K/mm3 0.0-0.1 MANUAL DIFF REQUIRED (test code=MDIFF) YES STAIN ACCEPTABILITY (test code=STN ACCEPTABLE) TOTAL CELLS COUNTED (test code=TCC) #CELLS SEGMENTED NEUTROPHILS (test code=SEG) % 39-69 LYMPHOCYTE (test code=LYMPH) % 25-55 MONOCYTE (test code=MON) % 0-10 EOSINOPHIL (test code=EOS) % 0.0-5.0 MORPHOLOGY COMMENT (test code=MOC) PLATELET ESTIMATE (test code=PLTEST) PLATELET MORPHOLOGY (test code=PLTMORPH) CBC W/MANUAL [id number] 06:57:00* Test Item Value Reference Range Comments WHITE BLOOD CELL (test code=WBC) 4.5 K/mm3 4.5-12.5 RED BLOOD CELL (test code=RBC) 2.82 mill/mm3 3.7-5.2 HEMOGLOBIN (test code=HGB) 9.8 gram/dL 11.5-15.5 HEMATOCRIT (test code=HCT) 28.4 % 36.0-46.0 MEAN CELL VOLUME (test code=MCV) 100.7 fL 80-98 MEAN CELL HGB (test code=MCH) 34.8 picogram 27.0-33.0 MEAN CELL HGB CONCETRATION (test code=MCHC) 34.5 gram/dL 33.0-36.0 RED CELL DISTRIBUTION WIDTH (test code=RDW) 16.7 % 11.6-16.2 RED CELL DISTRIBUTION WIDTH SD (test code=RDW-SD) 54.8 fL 37.0-51.0 PLATELET COUNT (test code=PLT) 176 K/mm3 150-450 MEAN PLATELET VOLUME (test code=MPV) 9.0 fL 6.7-11.0 IMMATURE GRANULOCYTE % (test code=IG%) 0.2 % 0.0-5.0 NUCLEATED RBC % (test code=NRBC%) 0.0 % 0-0 NEUTROPHIL # (test code=NT#) 2.93 K/mm3 1.8-7.7 IMMATURE GRANULOCYTE # (test code=IG#) 0.01 x10 3/uL 0-0.03 LYMPHOCYTE # (test code=LY#) 0.92 K/mm3 1.0-5.0 MONOCYTE # (test code=MO#) 0.40 K/mm3 0-0.8 EOSINOPHIL # (test code=EO#) 0.24 K/mm3 0.0-0.5 BASOPHIL # (test code=BA#) 0.01 K/mm3 0.0-0.2 NUCLEATED RBC # (test code=NRBC#) 0.00 K/mm3 0.0-0.1 MANUAL DIFF REQUIRED (test code=MDIFF) YES STAIN ACCEPTABILITY (test code=STN ACCEPTABLE) TOTAL CELLS COUNTED (test code=TCC) #CELLS SEGMENTED NEUTROPHILS (test code=SEG) % 39-69 LYMPHOCYTE (test code=LYMPH) % 25-55 MONOCYTE (test code=MON) % 0-10 MORPHOLOGY COMMENT (test code=MOC) PLATELET ESTIMATE (test code=PLTEST) PLATELET MORPHOLOGY (test code=PLTMORPH) CBC W/MANUAL [id number] 06:56:00* Test Item Value Reference Range Comments WHITE BLOOD CELL (test code=WBC) 4.5 K/mm3 4.5-12.5 RED BLOOD CELL (test code=RBC) 2.82 mill/mm3 3.7-5.2 HEMOGLOBIN (test code=HGB) 9.8 gram/dL 11.5-15.5 HEMATOCRIT (test code=HCT) 28.4 % 36.0-46.0 MEAN CELL VOLUME (test code=MCV) 100.7 fL 80-98 MEAN CELL HGB (test code=MCH) 34.8 picogram 27.0-33.0 MEAN CELL HGB CONCETRATION (test code=MCHC) 34.5 gram/dL 33.0-36.0 RED CELL DISTRIBUTION WIDTH (test code=RDW) 16.7 % 11.6-16.2 RED CELL DISTRIBUTION WIDTH SD (test code=RDW-SD) 54.8 fL 37.0-51.0 PLATELET COUNT (test code=PLT) 176 K/mm3 150-450 MEAN PLATELET VOLUME (test code=MPV) 9.0 fL 6.7-11.0 IMMATURE GRANULOCYTE % (test code=IG%) 0.2 % 0.0-5.0 NUCLEATED RBC % (test code=NRBC%) 0.0 % 0-0 NEUTROPHIL # (test code=NT#) 2.93 K/mm3 1.8-7.7 IMMATURE GRANULOCYTE # (test code=IG#) 0.01 x10 3/uL 0-0.03 LYMPHOCYTE # (test code=LY#) 0.92 K/mm3 1.0-5.0 MONOCYTE # (test code=MO#) 0.40 K/mm3 0-0.8 EOSINOPHIL # (test code=EO#) 0.24 K/mm3 0.0-0.5 BASOPHIL # (test code=BA#) 0.01 K/mm3 0.0-0.2 NUCLEATED RBC # (test code=NRBC#) 0.00 K/mm3 0.0-0.1 MANUAL DIFF REQUIRED (test code=MDIFF) YES STAIN ACCEPTABILITY (test code=STN ACCEPTABLE) TOTAL CELLS COUNTED (test code=TCC) #CELLS SEGMENTED NEUTROPHILS (test code=SEG) % 39-69 LYMPHOCYTE (test code=LYMPH) % 25-55 MONOCYTE (test code=MON) % 0-10 EOSINOPHIL (test code=EOS) % 0.0-5.0 CABOT RINGS (test code=CAB) MORPHOLOGY COMMENT (test code=MOC) PLATELET ESTIMATE (test code=PLTEST) PLATELET MORPHOLOGY (test code=PLTMORPH) CBC W/MANUAL [id number] 06:56:00* Test Item Value Reference Range Comments WHITE BLOOD CELL (test code=WBC) 4.5 K/mm3 4.5-12.5 RED BLOOD CELL (test code=RBC) 2.82 mill/mm3 3.7-5.2 HEMOGLOBIN (test code=HGB) 9.8 gram/dL 11.5-15.5 HEMATOCRIT (test code=HCT) 28.4 % 36.0-46.0 MEAN CELL VOLUME (test code=MCV) 100.7 fL 80-98 MEAN CELL HGB (test code=MCH) 34.8 picogram 27.0-33.0 MEAN CELL HGB CONCETRATION (test code=MCHC) 34.5 gram/dL 33.0-36.0 RED CELL DISTRIBUTION WIDTH (test code=RDW) 16.7 % 11.6-16.2 RED CELL DISTRIBUTION WIDTH SD (test code=RDW-SD) 54.8 fL 37.0-51.0 PLATELET COUNT (test code=PLT) 176 K/mm3 150-450 MEAN PLATELET VOLUME (test code=MPV) 9.0 fL 6.7-11.0 IMMATURE GRANULOCYTE % (test code=IG%) 0.2 % 0.0-5.0 NUCLEATED RBC % (test code=NRBC%) 0.0 % 0-0 NEUTROPHIL # (test code=NT#) 2.93 K/mm3 1.8-7.7 IMMATURE GRANULOCYTE # (test code=IG#) 0.01 x10 3/uL 0-0.03 LYMPHOCYTE # (test code=LY#) 0.92 K/mm3 1.0-5.0 MONOCYTE # (test code=MO#) 0.40 K/mm3 0-0.8 EOSINOPHIL # (test code=EO#) 0.24 K/mm3 0.0-0.5 BASOPHIL # (test code=BA#) 0.01 K/mm3 0.0-0.2 NUCLEATED RBC # (test code=NRBC#) 0.00 K/mm3 0.0-0.1 MANUAL DIFF REQUIRED (test code=MDIFF) YES STAIN ACCEPTABILITY (test code=STN ACCEPTABLE) TOTAL CELLS COUNTED (test code=TCC) #CELLS SEGMENTED NEUTROPHILS (test code=SEG) % 39-69 LYMPHOCYTE (test code=LYMPH) % 25-55 MONOCYTE (test code=MON) % 0-10 EOSINOPHIL (test code=EOS) % 0.0-5.0 CABOT RINGS (test code=CAB) MORPHOLOGY COMMENT (test code=MOC) PLATELET ESTIMATE (test code=PLTEST) PLATELET MORPHOLOGY (test code=PLTMORPH) BASIC METABOLIC [id number] 09:42:00* Test Item Value Reference Range Comments SODIUM (test code=NA) 142 mmol/L 136-145 POTASSIUM (test code=K) 4.1 mmol/L 3.5-5.1 CHLORIDE (test code=CL) 109.0 mmol/L 98-107 CARBON DIOXIDE (test code=CO2) 26.0 mmol/L 21-32 ANION GAP (test code=GAP) 11.1 10-20 GLUCOSE (test code=GLU) 148 mg/dL 74-106 BLOOD UREA NITROGEN (test code=BUN) 42 mg/dL 7-18 GLOMERULAR FILTRATION RATE (test code=GFR) > 60 mL/min >=60 Estimated GFR by using Modified MDRD formula.Chronic kidney disease is defined as either kidney damageor GFR <60 mL/min/1.73 m2 for >3 months. CREATININE (test code=CREAT) 0.70 mg/dL 0.55-1.02 Note change in reference range due to change in reagent. BUN/CREATININE RATIO (test code=BUN/CREA) 58.7 10-20 CALCIUM (test code=CA) 8.3 mg/dL 8.5-10.1 CBC W/AUTO [id number] 08:52:00* Test Item Value Reference Range Comments WHITE BLOOD CELL (test code=WBC) 4.5 K/mm3 4.5-12.5 RED BLOOD CELL (test code=RBC) 2.59 mill/mm3 3.7-5.2 HEMOGLOBIN (test code=HGB) 8.8 gram/dL 11.5-15.5 HEMATOCRIT (test code=HCT) 26.4 % 36.0-46.0 MEAN CELL VOLUME (test code=MCV) 101.9 fL 80-98 MEAN CELL HGB (test code=MCH) 34.0 picogram 27.0-33.0 MEAN CELL HGB CONCETRATION (test code=MCHC) 33.3 gram/dL 33.0-36.0 RED CELL DISTRIBUTION WIDTH (test code=RDW) 16.5 % 11.6-16.2 RED CELL DISTRIBUTION WIDTH SD (test code=RDW-SD) 55.5 fL 37.0-51.0 PLATELET COUNT (test code=PLT) 157 K/mm3 150-450 MEAN PLATELET VOLUME (test code=MPV) 8.5 fL 6.7-11.0 NEUTROPHIL % (test code=NT%) 69.8 % 39.0-69.0 IMMATURE GRANULOCYTE % (test code=IG%) 0.2 % 0.0-5.0 LYMPHOCYTE % (test code=LY%) 19.1 % 25.0-55.0 MONOCYTE % (test code=MO%) 6.9 % 0.0-10.0 EOSINOPHIL % (test code=EO%) 3.8 % 0.0-5.0 BASOPHIL % (test code=BA%) 0.2 % 0.0-1.0 NUCLEATED RBC % (test code=NRBC%) 0.0 % 0-0 NEUTROPHIL # (test code=NT#) 3.15 K/mm3 1.8-7.7 IMMATURE GRANULOCYTE # (test code=IG#) 0.01 x10 3/uL 0-0.03 LYMPHOCYTE # (test code=LY#) 0.86 K/mm3 1.0-5.0 MONOCYTE # (test code=MO#) 0.31 K/mm3 0-0.8 EOSINOPHIL # (test code=EO#) 0.17 K/mm3 0.0-0.5 BASOPHIL # (test code=BA#) 0.01 K/mm3 0.0-0.2 NUCLEATED RBC # (test code=NRBC#) 0.00 K/mm3 0.0-0.1 CBC W/AUTO [id number] 05:32:00* Test Item Value Reference Range Comments WHITE BLOOD CELL (test code=WBC) 4.2 K/mm3 4.5-12.5 RED BLOOD CELL (test code=RBC) 2.52 mill/mm3 3.7-5.2 HEMOGLOBIN (test code=HGB) 8.5 gram/dL 11.5-15.5 HEMATOCRIT (test code=HCT) 26.1 % 36.0-46.0 MEAN CELL VOLUME (test code=MCV) 103.6 fL 80-98 MEAN CELL HGB (test code=MCH) 33.7 picogram 27.0-33.0 MEAN CELL HGB CONCETRATION (test code=MCHC) 32.6 gram/dL 33.0-36.0 RED CELL DISTRIBUTION WIDTH (test code=RDW) 15.8 % 11.6-16.2 RED CELL DISTRIBUTION WIDTH SD (test code=RDW-SD) 54.9 fL 37.0-51.0 PLATELET COUNT (test code=PLT) 181 K/mm3 150-450 MEAN PLATELET VOLUME (test code=MPV) 8.5 fL 6.7-11.0 NEUTROPHIL % (test code=NT%) 72.8 % 39.0-69.0 IMMATURE GRANULOCYTE % (test code=IG%) 0.5 % 0.0-5.0 LYMPHOCYTE % (test code=LY%) 15.9 % 25.0-55.0 MONOCYTE % (test code=MO%) 7.3 % 0.0-10.0 EOSINOPHIL % (test code=EO%) 3.3 % 0.0-5.0 BASOPHIL % (test code=BA%) 0.2 % 0.0-1.0 NUCLEATED RBC % (test code=NRBC%) 0.0 % 0-0 NEUTROPHIL # (test code=NT#) 3.07 K/mm3 1.8-7.7 IMMATURE GRANULOCYTE # (test code=IG#) 0.02 x10 3/uL 0-0.03 LYMPHOCYTE # (test code=LY#) 0.67 K/mm3 1.0-5.0 MONOCYTE # (test code=MO#) 0.31 K/mm3 0-0.8 EOSINOPHIL # (test code=EO#) 0.14 K/mm3 0.0-0.5 BASOPHIL # (test code=BA#) 0.01 K/mm3 0.0-0.2 NUCLEATED RBC # (test code=NRBC#) 0.00 K/mm3 0.0-0.1 MANUAL DIFF REQUIRED (test code=MDIFF) NO, ONLY SCAN NEEDED DIFFERENTIAL [id number] 05:32:00* Test Item Value Reference Range Comments STAIN ACCEPTABILITY (test code=STN ACCEPTABLE) STAIN ACCEPTABLE ANISOCYTOSIS (test code=ANISO) 1+ MACROCYTOSIS (test code=MACR) 1+ PLATELET ESTIMATE (test code=PLTEST) ADEQUATE PLATELET MORPHOLOGY (test code=PLTMORPH) SIZE VARIABLE BASIC METABOLIC [id number] 05:11:00* Test Item Value Reference Range Comments SODIUM (test code=NA) 144 mmol/L 136-145 POTASSIUM (test code=K) 4.1 mmol/L 3.5-5.1 CHLORIDE (test code=CL) 112.0 mmol/L 98-107 CARBON DIOXIDE (test code=CO2) 24.0 mmol/L 21-32 ANION GAP (test code=GAP) 12.1 10-20 GLUCOSE (test code=GLU) 147 mg/dL 74-106 BLOOD UREA NITROGEN (test code=BUN) 37 mg/dL 7-18 GLOMERULAR FILTRATION RATE (test code=GFR) > 60 mL/min >=60 Estimated GFR by using Modified MDRD formula.Chronic kidney disease is defined as either kidney damageor GFR <60 mL/min/1.73 m2 for >3 months. CREATININE (test code=CREAT) 0.70 mg/dL 0.55-1.02 Note change in reference range due to change in reagent. BUN/CREATININE RATIO (test code=BUN/CREA) 52.9 10-20 CALCIUM (test code=CA) 8.3 mg/dL 8.5-10.1 BASIC METABOLIC [id number] 05:05:00* Test Item Value Reference Range Comments SODIUM (test code=NA) 144 mmol/L 136-145 POTASSIUM (test code=K) 4.1 mmol/L 3.5-5.1 CHLORIDE (test code=CL) 112.0 mmol/L 98-107 CARBON DIOXIDE (test code=CO2) mmol/L 21-32 ANION GAP (test code=GAP) 10-20 GLUCOSE (test code=GLU) mg/dL 74-106 BLOOD UREA NITROGEN (test code=BUN) mg/dL 7-18 GLOMERULAR FILTRATION RATE (test code=GFR) mL/min >=60 CREATININE (test code=CREAT) mg/dL 0.55-1.02 BUN/CREATININE RATIO (test code=BUN/CREA) 10-20 CALCIUM (test code=CA) mg/dL 8.5-10.1 CBC W/AUTO [id number] 04:46:00* Test Item Value Reference Range Comments WHITE BLOOD CELL (test code=WBC) 4.2 K/mm3 4.5-12.5 RED BLOOD CELL (test code=RBC) 2.52 mill/mm3 3.7-5.2 HEMOGLOBIN (test code=HGB) 8.5 gram/dL 11.5-15.5 HEMATOCRIT (test code=HCT) 26.1 % 36.0-46.0 MEAN CELL VOLUME (test code=MCV) 103.6 fL 80-98 MEAN CELL HGB (test code=MCH) 33.7 picogram 27.0-33.0 MEAN CELL HGB CONCETRATION (test code=MCHC) 32.6 gram/dL 33.0-36.0 RED CELL DISTRIBUTION WIDTH (test code=RDW) 15.8 % 11.6-16.2 RED CELL DISTRIBUTION WIDTH SD (test code=RDW-SD) 54.9 fL 37.0-51.0 PLATELET COUNT (test code=PLT) 181 K/mm3 150-450 MEAN PLATELET VOLUME (test code=MPV) 8.5 fL 6.7-11.0 NEUTROPHIL % (test code=NT%) 72.8 % 39.0-69.0 IMMATURE GRANULOCYTE % (test code=IG%) 0.5 % 0.0-5.0 LYMPHOCYTE % (test code=LY%) 15.9 % 25.0-55.0 MONOCYTE % (test code=MO%) 7.3 % 0.0-10.0 EOSINOPHIL % (test code=EO%) 3.3 % 0.0-5.0 BASOPHIL % (test code=BA%) 0.2 % 0.0-1.0 NUCLEATED RBC % (test code=NRBC%) 0.0 % 0-0 NEUTROPHIL # (test code=NT#) 3.07 K/mm3 1.8-7.7 IMMATURE GRANULOCYTE # (test code=IG#) 0.02 x10 3/uL 0-0.03 LYMPHOCYTE # (test code=LY#) 0.67 K/mm3 1.0-5.0 MONOCYTE # (test code=MO#) 0.31 K/mm3 0-0.8 EOSINOPHIL # (test code=EO#) 0.14 K/mm3 0.0-0.5 BASOPHIL # (test code=BA#) 0.01 K/mm3 0.0-0.2 NUCLEATED RBC # (test code=NRBC#) 0.00 K/mm3 0.0-0.1 MANUAL DIFF REQUIRED (test code=MDIFF) NO, ONLY SCAN NEEDED DIFFERENTIAL [id number] 04:46:00* Test Item Value Reference Range Comments STAIN ACCEPTABILITY (test code=STN ACCEPTABLE) CABOT RINGS (test code=CAB) MORPHOLOGY COMMENT (test code=MOC) PLATELET ESTIMATE (test code=PLTEST) PLATELET MORPHOLOGY (test code=PLTMORPH) CBC W/AUTO [id number] 04:46:00* Test Item Value Reference Range Comments WHITE BLOOD CELL (test code=WBC) 4.2 K/mm3 4.5-12.5 RED BLOOD CELL (test code=RBC) 2.52 mill/mm3 3.7-5.2 HEMOGLOBIN (test code=HGB) 8.5 gram/dL 11.5-15.5 HEMATOCRIT (test code=HCT) 26.1 % 36.0-46.0 MEAN CELL VOLUME (test code=MCV) 103.6 fL 80-98 MEAN CELL HGB (test code=MCH) 33.7 picogram 27.0-33.0 MEAN CELL HGB CONCETRATION (test code=MCHC) 32.6 gram/dL 33.0-36.0 RED CELL DISTRIBUTION WIDTH (test code=RDW) 15.8 % 11.6-16.2 RED CELL DISTRIBUTION WIDTH SD (test code=RDW-SD) 54.9 fL 37.0-51.0 PLATELET COUNT (test code=PLT) 181 K/mm3 150-450 MEAN PLATELET VOLUME (test code=MPV) 8.5 fL 6.7-11.0 NEUTROPHIL % (test code=NT%) 72.8 % 39.0-69.0 IMMATURE GRANULOCYTE % (test code=IG%) 0.5 % 0.0-5.0 LYMPHOCYTE % (test code=LY%) 15.9 % 25.0-55.0 MONOCYTE % (test code=MO%) 7.3 % 0.0-10.0 EOSINOPHIL % (test code=EO%) 3.3 % 0.0-5.0 BASOPHIL % (test code=BA%) 0.2 % 0.0-1.0 NUCLEATED RBC % (test code=NRBC%) 0.0 % 0-0 NEUTROPHIL # (test code=NT#) 3.07 K/mm3 1.8-7.7 IMMATURE GRANULOCYTE # (test code=IG#) 0.02 x10 3/uL 0-0.03 LYMPHOCYTE # (test code=LY#) 0.67 K/mm3 1.0-5.0 MONOCYTE # (test code=MO#) 0.31 K/mm3 0-0.8 EOSINOPHIL # (test code=EO#) 0.14 K/mm3 0.0-0.5 BASOPHIL # (test code=BA#) 0.01 K/mm3 0.0-0.2 NUCLEATED RBC # (test code=NRBC#) 0.00 K/mm3 0.0-0.1 MANUAL DIFF REQUIRED (test code=MDIFF) NO, ONLY SCAN NEEDED DIFFERENTIAL [id number] 04:46:00* Test Item Value Reference Range Comments STAIN ACCEPTABILITY (test code=STN ACCEPTABLE) CABOT RINGS (test code=CAB) MORPHOLOGY COMMENT (test code=MOC) PLATELET ESTIMATE (test code=PLTEST) PLATELET MORPHOLOGY (test code=PLTMORPH) CBC W/AUTO [id number] 04:46:00* Test Item Value Reference Range Comments WHITE BLOOD CELL (test code=WBC) 4.2 K/mm3 4.5-12.5 RED BLOOD CELL (test code=RBC) 2.52 mill/mm3 3.7-5.2 HEMOGLOBIN (test code=HGB) 8.5 gram/dL 11.5-15.5 HEMATOCRIT (test code=HCT) 26.1 % 36.0-46.0 MEAN CELL VOLUME (test code=MCV) 103.6 fL 80-98 MEAN CELL HGB (test code=MCH) 33.7 picogram 27.0-33.0 MEAN CELL HGB CONCETRATION (test code=MCHC) 32.6 gram/dL 33.0-36.0 RED CELL DISTRIBUTION WIDTH (test code=RDW) 15.8 % 11.6-16.2 RED CELL DISTRIBUTION WIDTH SD (test code=RDW-SD) 54.9 fL 37.0-51.0 PLATELET COUNT (test code=PLT) 181 K/mm3 150-450 MEAN PLATELET VOLUME (test code=MPV) 8.5 fL 6.7-11.0 NEUTROPHIL % (test code=NT%) 72.8 % 39.0-69.0 IMMATURE GRANULOCYTE % (test code=IG%) 0.5 % 0.0-5.0 LYMPHOCYTE % (test code=LY%) 15.9 % 25.0-55.0 MONOCYTE % (test code=MO%) 7.3 % 0.0-10.0 EOSINOPHIL % (test code=EO%) 3.3 % 0.0-5.0 BASOPHIL % (test code=BA%) 0.2 % 0.0-1.0 NUCLEATED RBC % (test code=NRBC%) 0.0 % 0-0 NEUTROPHIL # (test code=NT#) 3.07 K/mm3 1.8-7.7 IMMATURE GRANULOCYTE # (test code=IG#) 0.02 x10 3/uL 0-0.03 LYMPHOCYTE # (test code=LY#) 0.67 K/mm3 1.0-5.0 MONOCYTE # (test code=MO#) 0.31 K/mm3 0-0.8 EOSINOPHIL # (test code=EO#) 0.14 K/mm3 0.0-0.5 BASOPHIL # (test code=BA#) 0.01 K/mm3 0.0-0.2 NUCLEATED RBC # (test code=NRBC#) 0.00 K/mm3 0.0-0.1 MANUAL DIFF REQUIRED (test code=MDIFF) NO, ONLY SCAN NEEDED DIFFERENTIAL [id number] 04:46:00* Test Item Value Reference Range Comments STAIN ACCEPTABILITY (test code=STN ACCEPTABLE) MORPHOLOGY COMMENT (test code=MOC) PLATELET ESTIMATE (test code=PLTEST) PLATELET MORPHOLOGY (test code=PLTMORPH) CBC W/AUTO [id number] 04:46:00* Test Item Value Reference Range Comments WHITE BLOOD CELL (test code=WBC) 4.2 K/mm3 4.5-12.5 RED BLOOD CELL (test code=RBC) 2.52 mill/mm3 3.7-5.2 HEMOGLOBIN (test code=HGB) 8.5 gram/dL 11.5-15.5 HEMATOCRIT (test code=HCT) 26.1 % 36.0-46.0 MEAN CELL VOLUME (test code=MCV) 103.6 fL 80-98 MEAN CELL HGB (test code=MCH) 33.7 picogram 27.0-33.0 MEAN CELL HGB CONCETRATION (test code=MCHC) 32.6 gram/dL 33.0-36.0 RED CELL DISTRIBUTION WIDTH (test code=RDW) 15.8 % 11.6-16.2 RED CELL DISTRIBUTION WIDTH SD (test code=RDW-SD) 54.9 fL 37.0-51.0 PLATELET COUNT (test code=PLT) 181 K/mm3 150-450 MEAN PLATELET VOLUME (test code=MPV) 8.5 fL 6.7-11.0 NEUTROPHIL % (test code=NT%) 72.8 % 39.0-69.0 IMMATURE GRANULOCYTE % (test code=IG%) 0.5 % 0.0-5.0 LYMPHOCYTE % (test code=LY%) 15.9 % 25.0-55.0 MONOCYTE % (test code=MO%) 7.3 % 0.0-10.0 EOSINOPHIL % (test code=EO%) 3.3 % 0.0-5.0 BASOPHIL % (test code=BA%) 0.2 % 0.0-1.0 NUCLEATED RBC % (test code=NRBC%) 0.0 % 0-0 NEUTROPHIL # (test code=NT#) 3.07 K/mm3 1.8-7.7 IMMATURE GRANULOCYTE # (test code=IG#) 0.02 x10 3/uL 0-0.03 LYMPHOCYTE # (test code=LY#) 0.67 K/mm3 1.0-5.0 MONOCYTE # (test code=MO#) 0.31 K/mm3 0-0.8 EOSINOPHIL # (test code=EO#) 0.14 K/mm3 0.0-0.5 BASOPHIL # (test code=BA#) 0.01 K/mm3 0.0-0.2 NUCLEATED RBC # (test code=NRBC#) 0.00 K/mm3 0.0-0.1 MANUAL DIFF REQUIRED (test code=MDIFF) NO, ONLY SCAN NEEDED DIFFERENTIAL [id number] 04:46:00* Test Item Value Reference Range Comments STAIN ACCEPTABILITY (test code=STN ACCEPTABLE) CABOT RINGS (test code=CAB) MORPHOLOGY COMMENT (test code=MOC) PLATELET ESTIMATE (test code=PLTEST) PLATELET MORPHOLOGY (test code=PLTMORPH) FE W/TOTAL IRON BINDING CAP.[id number] 15:36:00* Test Item Value Reference Range Comments SERUM IRON (test code=IRON) 32 ug/dL 50-175 TOTAL IRON BINDING CAPACITY (test code=TIBC) 246 mcg/dL 250-450 IRON SATURATION (test code=FESAT) 13.01 % 13-45 FOLIC [id number] 15:36:00* Test Item Value Reference Range Comments FOLIC ACID (test code=FOL) 30.8 ng/mL 3.10-17.50 [id number] 15:36:00* Test Item Value Reference Range Comments FERRITIN (test code=LACEY) 113 ng/mL 8-388 RETICULOCYTE [id number] 15:29:00* Test Item Value Reference Range Comments RETICULOCYTE COUNT (test code=RETICT) 1.9 % 0.5-2.0 RETIC COUNT ABSOLUTE (test code=RET#) 0.049 mill/mm3 0.016-0.095 IMMATURE RETICULOCYTE FRACTION (test code=IRF) 8.5 % 3.0-15.9 Values above normal range indicate an increase in RBCcellular response from bone marrow. RETICULOCYTE HGB EQUIVALENT (test code=RETHE) 34.5 pg 28.2-35.7 RET-He is a direct estimate of recent functionalavailability of iron in the cell, therefore, decreasedRET-He is indicative of iron deficiency. COMPREHENSIVE METABOLIC [id number] 11:31:00* Test Item Value Reference Range Comments SODIUM (test code=NA) 144 mmol/L 136-145 POTASSIUM (test code=K) 3.7 mmol/L 3.5-5.1 CHLORIDE (test code=CL) 111.0 mmol/L 98-107 CARBON DIOXIDE (test code=CO2) 27.0 mmol/L 21-32 ANION GAP (test code=GAP) 9.7 10-20 GLUCOSE (test code=GLU) 144 mg/dL 74-106 BLOOD UREA NITROGEN (test code=BUN) 34 mg/dL 7-18 GLOMERULAR FILTRATION RATE (test code=GFR) > 60 mL/min >=60 Estimated GFR by using Modified MDRD formula.Chronic kidney disease is defined as either kidney damageor GFR <60 mL/min/1.73 m2 for >3 months. CREATININE (test code=CREAT) 0.60 mg/dL 0.55-1.02 Note change in reference range due to change in reagent. BUN/CREATININE RATIO (test code=BUN/CREA) 56.7 10-20 TOTAL PROTEIN (test code=PROT) 6.1 gram/dL 6.4-8.2 ALBUMIN (test code=ALB) 2.4 g/dL 3.4-5.0 GLOBULIN (test code=GLOB) 3.7 gram/dL 2.7-4.2 ALBUMIN/GLOBULIN RATIO (test code=A/G) 0.7 0.75-1.50 CALCIUM (test code=CA) 8.2 mg/dL 8.5-10.1 BILIRUBIN TOTAL (test code=BILT) 0.10 mg/dL 0.0-1.0 SGOT/AST (test code=AST) 10 IUnit/L 15-37 SGPT/ALT (test code=ALT) 17 IUnit/L 12-78 ALKALINE PHOSPHATASE TOTAL (test code=ALKP) 91 IUnit/L 45-117 Note change in reference range due to change in reagent. PT IS A HARDSTICK ROME HOOKER AWARE @2840 V.LAB.JS107/06/26 0850LIPASE 2018-10-10 11:31:00* Test Item Value Reference Range Comments LIPASE (test code=LIP) 53 U/L 73.0-393.0 PT IS A IVONNE HOOKER AWARE @0840 [employer].LAB. 0850COMPREHENSIVE METABOLIC [id number] 11:25:00* Test Item Value Reference Range Comments SODIUM (test code=NA) 144 mmol/L 136-145 POTASSIUM (test code=K) 3.7 mmol/L 3.5-5.1 CHLORIDE (test code=CL) 111.0 mmol/L 98-107 CARBON DIOXIDE (test code=CO2) mmol/L 21-32 ANION GAP (test code=GAP) 10-20 GLUCOSE (test code=GLU) mg/dL 74-106 BLOOD UREA NITROGEN (test code=BUN) mg/dL 7-18 GLOMERULAR FILTRATION RATE (test code=GFR) mL/min >=60 CREATININE (test code=CREAT) mg/dL 0.55-1.02 BUN/CREATININE RATIO (test code=BUN/CREA) 10-20 TOTAL PROTEIN (test code=PROT) gram/dL 6.4-8.2 ALBUMIN (test code=ALB) g/dL 3.4-5.0 GLOBULIN (test code=GLOB) gram/dL 2.7-4.2 ALBUMIN/GLOBULIN RATIO (test code=A/G) 0.75-1.50 CALCIUM (test code=CA) mg/dL 8.5-10.1 BILIRUBIN TOTAL (test code=BILT) mg/dL 0.0-1.0 SGOT/AST (test code=AST) IUnit/L 15-37 SGPT/ALT (test code=ALT) IUnit/L 12-78 ALKALINE PHOSPHATASE TOTAL (test code=ALKP) IUnit/L 45-117 PT IS Angella LEWIS IS AWARE @08[employer]. 0850LIPASE 2018-10-10 11:25:00* Test Item Value Reference Range Comments LIPASE (test code=LIP) U/L 73.0-393.0 PT IS A IVONNE HOOKER AWARE @0840 [employer].LAB. 0850CBC W/AUTO [id number] 10:59:00* Test Item Value Reference Range Comments WHITE BLOOD CELL (test code=WBC) 4.1 K/mm3 4.5-12.5 RED BLOOD CELL (test code=RBC) 2.56 mill/mm3 3.7-5.2 HEMOGLOBIN (test code=HGB) 8.8 gram/dL 11.5-15.5 HEMATOCRIT (test code=HCT) 26.6 % 36.0-46.0 MEAN CELL VOLUME (test code=MCV) 103.9 fL 80-98 MEAN CELL HGB (test code=MCH) 34.4 picogram 27.0-33.0 MEAN CELL HGB CONCETRATION (test code=MCHC) 33.1 gram/dL 33.0-36.0 RED CELL DISTRIBUTION WIDTH (test code=RDW) 16.3 % 11.6-16.2 RED CELL DISTRIBUTION WIDTH SD (test code=RDW-SD) 55.8 fL 37.0-51.0 PLATELET COUNT (test code=PLT) 182 K/mm3 150-450 MEAN PLATELET VOLUME (test code=MPV) 8.5 fL 6.7-11.0 NEUTROPHIL % (test code=NT%) 73.5 % 39.0-69.0 IMMATURE GRANULOCYTE % (test code=IG%) 0.2 % 0.0-5.0 LYMPHOCYTE % (test code=LY%) 12.8 % 25.0-55.0 MONOCYTE % (test code=MO%) 9.1 % 0.0-10.0 EOSINOPHIL % (test code=EO%) 3.9 % 0.0-5.0 BASOPHIL % (test code=BA%) 0.5 % 0.0-1.0 NUCLEATED RBC % (test code=NRBC%) 0.0 % 0-0 NEUTROPHIL # (test code=NT#) 2.98 K/mm3 1.8-7.7 IMMATURE GRANULOCYTE # (test code=IG#) 0.01 x10 3/uL 0-0.03 LYMPHOCYTE # (test code=LY#) 0.52 K/mm3 1.0-5.0 MONOCYTE # (test code=MO#) 0.37 K/mm3 0-0.8 EOSINOPHIL # (test code=EO#) 0.16 K/mm3 0.0-0.5 BASOPHIL # (test code=BA#) 0.02 K/mm3 0.0-0.2 NUCLEATED RBC # (test code=NRBC#) 0.00 K/mm3 0.0-0.1 PT IS A HARDSURESH MELTON @0840 V.LAB.JS107/06/26 0850HEMOGLOBIN 2018-10-09 22:29:00* Test Item Value Reference Range Comments HEMOGLOBIN (test code=HGB) 9.2 gram/dL 11.5-15.5 [id number] 22:29:00* Test Item Value Reference Range Comments HEMATOCRIT (test code=HCT) 26.9 % 36.0-46.0 PROTHROMBIN [id number] 04:11:00* Test Item Value Reference Range Comments PROTHROMBIN TIME PATIENT (test code=PTP) 14.3 seconds 9.0-14.0 INTERNATIONAL NORMAL RATIO (test code=INR) 1.2 0.8-1.2 The therapeutic range for oral anticoagulant therapy formost indications is an international normalized ratio (INR)of between 2.0 and 3.0. The recommended therapeutic INRrange for various clinical situations is listed below: Clinical Situation INR range Pulmonary e mbolism treatment (2.0-3.0)Venous thrombosis treatmentVenous thrombosis prophylaxis (high risk surgery)Prevention of systemic embolism from: Acute myocardial infarction Valvular heart disease Atrial fibrillation Mechanical prosthetic heart valves (2.5-3.5) IS PATIENT ON ANTICOAGULANTS? NCBC W/AUTO [id number] 02:22:00* Test Item Value Reference Range Comments WHITE BLOOD CELL (test code=WBC) 6.1 K/mm3 4.5-12.5 RED BLOOD CELL (test code=RBC) 2.83 mill/mm3 3.7-5.2 HEMOGLOBIN (test code=HGB) 9.9 gram/dL 11.5-15.5 RESULT VERIFIED BY REPEAT ANALYSIS HEMATOCRIT (test code=HCT) 28.6 % 36.0-46.0 MEAN CELL VOLUME (test code=MCV) 101.1 fL 80-98 MEAN CELL HGB (test code=MCH) 35.0 picogram 27.0-33.0 MEAN CELL HGB CONCETRATION (test code=MCHC) 34.6 gram/dL 33.0-36.0 RED CELL DISTRIBUTION WIDTH (test code=RDW) 16.0 % 11.6-16.2 RED CELL DISTRIBUTION WIDTH SD (test code=RDW-SD) 52.4 fL 37.0-51.0 PLATELET COUNT (test code=PLT) 217 K/mm3 150-450 RESULT VERIFIED BY REPEAT ANALYSIS MEAN PLATELET VOLUME (test code=MPV) 8.7 fL 6.7-11.0 NEUTROPHIL % (test code=NT%) 77.2 % 39.0-69.0 IMMATURE GRANULOCYTE % (test code=IG%) 0.3 % 0.0-5.0 LYMPHOCYTE % (test code=LY%) 12.7 % 25.0-55.0 MONOCYTE % (test code=MO%) 8.0 % 0.0-10.0 EOSINOPHIL % (test code=EO%) 1.5 % 0.0-5.0 BASOPHIL % (test code=BA%) 0.3 % 0.0-1.0 NUCLEATED RBC % (test code=NRBC%) 0.0 % 0-0 NEUTROPHIL # (test code=NT#) 4.72 K/mm3 1.8-7.7 IMMATURE GRANULOCYTE # (test code=IG#) 0.02 x10 3/uL 0-0.03 LYMPHOCYTE # (test code=LY#) 0.78 K/mm3 1.0-5.0 MONOCYTE # (test code=MO#) 0.49 K/mm3 0-0.8 EOSINOPHIL # (test code=EO#) 0.09 K/mm3 0.0-0.5 BASOPHIL # (test code=BA#) 0.02 K/mm3 0.0-0.2 NUCLEATED RBC # (test code=NRBC#) 0.00 K/mm3 0.0-0.1 COMPREHENSIVE METABOLIC [id number] 02:20:00* Test Item Value Reference Range Comments SODIUM (test code=NA) 137 mmol/L 136-145 POTASSIUM (test code=K) 3.7 mmol/L 3.5-5.1 CHLORIDE (test code=CL) 104.0 mmol/L 98-107 CARBON DIOXIDE (test code=CO2) 27.0 mmol/L 21-32 ANION GAP (test code=GAP) 9.7 10-20 GLUCOSE (test code=GLU) 136 mg/dL 74-106 BLOOD UREA NITROGEN (test code=BUN) 31 mg/dL 7-18 GLOMERULAR FILTRATION RATE (test code=GFR) > 60 mL/min >=60 Estimated GFR by using Modified MDRD formula.Chronic kidney disease is defined as either kidney damageor GFR <60 mL/min/1.73 m2 for >3 months. CREATININE (test code=CREAT) 0.60 mg/dL 0.55-1.02 Note change in reference range due to change in reagent. BUN/CREATININE RATIO (test code=BUN/CREA) 51.8 10-20 TOTAL PROTEIN (test code=PROT) 6.4 gram/dL 6.4-8.2 ALBUMIN (test code=ALB) 2.4 g/dL 3.4-5.0 GLOBULIN (test code=GLOB) 4.0 gram/dL 2.7-4.2 ALBUMIN/GLOBULIN RATIO (test code=A/G) 0.6 0.75-1.50 CALCIUM (test code=CA) 8.3 mg/dL 8.5-10.1 BILIRUBIN TOTAL (test code=BILT) 0.30 mg/dL 0.0-1.0 SGOT/AST (test code=AST) 17 IUnit/L 15-37 SGPT/ALT (test code=ALT) 23 IUnit/L 12-78 ALKALINE PHOSPHATASE TOTAL (test code=ALKP) 107 IUnit/L 45-117 Note change in reference range due to change in reagent. [id number] 02:20:00* Test Item Value Reference Range Comments MAGNESIUM (test code=MAG) 2.1 mg/dL 1.8-2.4 COMPREHENSIVE METABOLIC [id number] 02:12:00* Test Item Value Reference Range Comments SODIUM (test code=NA) 137 mmol/L 136-145 POTASSIUM (test code=K) 3.7 mmol/L 3.5-5.1 CHLORIDE (test code=CL) 104.0 mmol/L 98-107 CARBON DIOXIDE (test code=CO2) mmol/L 21-32 ANION GAP (test code=GAP) 10-20 GLUCOSE (test code=GLU) mg/dL 74-106 BLOOD UREA NITROGEN (test code=BUN) mg/dL 7-18 GLOMERULAR FILTRATION RATE (test code=GFR) mL/min >=60 CREATININE (test code=CREAT) mg/dL 0.55-1.02 BUN/CREATININE RATIO (test code=BUN/CREA) 10-20 TOTAL PROTEIN (test code=PROT) gram/dL 6.4-8.2 ALBUMIN (test code=ALB) g/dL 3.4-5.0 GLOBULIN (test code=GLOB) gram/dL 2.7-4.2 ALBUMIN/GLOBULIN RATIO (test code=A/G) 0.75-1.50 CALCIUM (test code=CA) mg/dL 8.5-10.1 BILIRUBIN TOTAL (test code=BILT) mg/dL 0.0-1.0 SGOT/AST (test code=AST) IUnit/L 15-37 SGPT/ALT (test code=ALT) IUnit/L 12-78 ALKALINE PHOSPHATASE TOTAL (test code=ALKP) IUnit/L 45-117 [id number] 02:12:00* Test Item Value Reference Range Comments MAGNESIUM (test code=MAG) mg/dL 1.8-2.4 [id number] 20:34:00* Test Item Value Reference Range Comments GLUBED (test code=GLUBED) 148 mg/dL 74-106 Performed by certified dye reel operator helper at [facility] ([facility]) URINALYSIS [id number] 11:54:00* Test Item Value Reference Range Comments UA COLOR (test code=COLU) YELLOW YELLOW UA APPEARANCE (test code=APPU) CLEAR CLEAR UA GLUCOSE DIPSTICK (test code=DGLUU) NEGATIVE mg/dL NEGATIVE UA BILIRUBIN DIPSTICK (test code=BILU) NEGATIVE mg/dL NEGATIVE UA KETONE DIPSTICK (test code=KETU) NEGATIVE mg/dL NEGATIVE UA SPECIFIC GRAVITY (test code=SGU) 1.019 1.001-1.035 UA BLOOD DIPSTICK (test code=TIERA) 0.03 mg/dL (Trace) mg/dL NEGATIVE UA PH DIPSTICK (test code=YULISA) 8.5 5.0-8.0 UA PROTEIN DIPSTICK (test code=PROU) 30 (1+) mg/dL NEGATIVE UA UROBILINIOGEN DIPSTICK (test code=URO) Normal mg/dL NEGATIVE UA NITRITE DIPSTICK (test code=ESTELLE) NEGATIVE NEGATIVE UA LEUKOCYTE ESTERASE W REFLEX (test code=LEUUR) 500 Andrey/uL (3+) Andrey/uL NEGATIVE UA WBC (test code=WBCU) 21-50 per HPF 0-5 UA RBC (test code=RBCU) 6-10 #/HPF 0-5 UA EPITHELIAL CELLS (test code=EPIU) FEW per HPF FEW UA BACTERIA (test code=BACU) NONE SEEN #/HPF NONE UA MUCUS (test code=MUCU) FEW #/LPF FEW Urine Source? Clean CatchB-TYPE NATRIURETIC [id number] 07:23:00* Test Item Value Reference Range Comments B-TYPE NATRIURETIC PEPTIDE (test code=BNP) 125.80 pgram/mL 0-100 - CT ABDOMEN [id number] 05:16:00 Name: ANA CRISTINA FLANNERY [facility] : 1935 Age/S: 83 / F [address] [facility] Unit #: [id number] Loc: [place] [address] Phys: Van Chew MD Acct: [id number] Dis Date: Status: REG ER PHONE #: [phone] Exam Date: 10/08/2018 0440 FAX #: [phone] Reason: pain and swelling and bleeding from g tube site EXAMS: CPT CODE: [id number] CT ABDOMEN W/CONT [id number] EXAM: CT ABDOMEN AND PELVIS WITH IV CONTRAST DICTATION LOCATION: H48 HISTORY: Female, 83 years of age with abdominal pain and swelling; bleeding from g tube site TECHNIQUE: Contrast: Nonionic IV contrast was given. No GI contrast was given. Portal venous phase: Abdomen and pelvis Delayed phase: None Reconstructions: Coronal and sagittal One or more of the following dose reduction techniques were used: Automated exposure control; adjustment of the mA and/or kV according to the patient size; and/or use of iterative reconstruction technique. COMPARISON: Previous CT abdomen and pelvis with contrast performed 09/21/2018 FINDINGS: Statements: Exam quality is acceptable. Lower thorax: Small bilateral pleural effusions and bibasilar atelectasis are noted. Mild interstitial opacity seen in right lower lobe. Hepatobiliary: The liver is normal without focal lesion. Gallbladder is absent. No biliary dilation. Pancreas: Normal. Spleen: Normal. Adrenals: Normal. Genitourinary: No solid renal mass, significant cortical thinning, obvious renal stone or hydronephrosis. Ureters are unremarkable. Urinary bladder wall is mildly t hickened. No bladder filling defects or diverticula. Uterus and ovaries ar e not seen. 1.5 cm relatively hyperdense rounded mass is seen in the left ischiorectal fat, probably a hemorrhagic Bartholin's cyst. G astrointestinal: Gastrojejunostomy tube is present with tip terminating in the proximal jejunum. No bowel obstruction or PAGE 1 Signed Report (CONTINUED) Name: ANA CRISTINA FLANNERY [facility] : 1935 Age/S: 83 / F [address] [facility] Unit #: [id number] Loc: [place] [address] Phys: Van Chew MD Acct: [id number] Dis Date: Status: REG ER PHONE #: [phone] Exam Date: 019 0440 FAX #: [phone] Reason: pain and swelling and bleeding from g tube site EXAMS: CPT CODE: [id number] CT ABDOMEN W/CONT 36531 <Continued> perienteric inflammation. The appendix is normal. Numerous colonic diverticula are present. Vascular: Atherosclerotic calcifications are seen within the aorta and branch vessels. No aneurysm or dissection. Lymphatics: No enlarged lymph nodes by CT size criteria. Bones/Soft Tissues: No acute osseous findings. There is a mild compression deformity of the L2 vertebra which looks chronic. No ventral hernias. Peritoneum/Other: No free intraperitoneal air. No free intraperitoneal fluid. IMPRESSION: 1. Mild wall thickening in the urinary bladder. Please correlate for cystitis. 2. Diverticulosis coli without evidence for acute diverticulitis. at 0516 Reported and signed by: Teresa Cuellar MD CC: Van Chew MD Technologist:PEE IQBLA CT CTDI: DLP: Trnscb Date/Time: 10/08/2018 (0516) t.SDR.CLW Orig Print D/T: S: 10/08/2018 (0519) PAGE 2 Signed Report - CT CHEST W/O [id number] 05:07:00 Name: ANA CRISTINA FLANNERY [facility] : 1935 Age/S: 83 / F [address] Unit #: [id number] Loc: [place] [address] Phys: Van Chew MD Acct: [id number] Dis Date: Status: REG ER PHONE #: [phone] Exam Date: 10/08/2018 0440 FAX #: [phone] Reason: cough EXAMS: CPT CODE: [id number] CT CHEST W/O CONTRAST 60020 DICTATION LOCATION: H48 HISTORY: Female, 83 years of age with cough EXAM: CT CHEST WITHOUT CONTRAST (ROUTINE) COMPARISON: Chest x-ray performed today; CT angiography of chest performed 11/20/2014 TECH NIQUE: 5.0 mm Helical axial images were obtained through the chest without IV contrast using the routine chest CT protocol. Coronal and sagittal ref ormats were performed. One or more of the following dose reduction techniq ues were used: Automated exposure control; adjustment of the mA and/or kV according to the patient size; and/or use of iterative reconstruction tech nique. FINDINGS: AORTA: Calcified plaque seen in the aorta. No focal aortic aneurysm. Dissection cannot be excluded without IV contra st. PULMONARY ARTERIES: Mildly enlarged. HEART: Heavy coronary ar jules calcifications are noted. Heart size within normal limits. No signifi cant pericardial effusion. MEDIASTINUM: No pathologically enlarged lymp h nodes by CT criteria. Esophagus is mildly dilated with air-fluid level i ndicating GERD. PLEURA: Small bilateral pleural effusions are noted. LUNGS: Mild interstitial opacities and atelectasis seen in both poste rior lower lobes. Punctate calcified granuloma seen in the right middle lo be. Scarring seen in the anterior right upper lobe. No lobar consolidation or mass. No significant emphysema. No tracheobronchial filling defect. OTHER: Gastrojejunostomy tube is seen with all in distal stomach. No acute osseous abnormality. IMPRESSION: 1. Small bilat eral pleural effusions. 2. Mild interstitial opacities and atelectasis i n both posterior lower lobes. I suspect mild interstitial edema. 3. Air-fluid level in the esophagus indicating GERD. 4. Extensive calci fied plaque in the aorta and coronary arteries. Electronically Teresa d by Teresa Cuellar MD on 10/08/2018 at 0507 Reported and signed by: Teresa Cuellar MD PAGE 1 Signed Report (CONTINUED) Name: ANA CRISTINA FLANNERY : 1935 Age/S: 83 / F [address] [facility] Unit #: [id number] Loc: [place] [address] Phys: Van Chew MD Acct: [id number] Dis Date: Status: REG ER PHONE #: [phone] Exam Date: 10/08/2018 044 FAX #: [phone] Reason: cough EXAMS: CPT CODE: [id number] CT CHEST W/O CONTRAST 05146 < Continued> CC: Van Chew MD Technologist:PEE IQBAL CT CTDI: DLP: Trnscb Date/Time: 10/08/2018 (0507) t.MEAGANR.CLW Orig Print D/T: S: 10/08/2018 (0510) PAGE 2 Signed Report PROCALCITONIN (PCT)2018-10-08 04:28:00* Test Item Value Reference Range Comments PROCALCITONIN (PCT) (test code=PROCAL) 0.17 ng/ml Concentration Interpretation (ng/mL) <0.51 Sepsis is not likely. Local bacterial infection is possible. (LOW RISK for progression to Sepsis) 0.51 - 2.00 Sepsis is possible, but other conditions are known to elevate PCT as well. (MODERATE RISK for progression to Sepsis) > 2.00 Sepsis is likely, unless other causes are known. (HIGH RISK for progression to Severe Sepsis or Septic Shock) 10.00 High likelihood of Severe Sepsis or Septic or higher Shock. *Increased PCT levels may not always be related to systemic bacterial infection.*Low PCT levels do not automatically exclude the presence of bacterial infection.*All results should be interpreted taking into account the patients history. BASIC METABOLIC [id number] 04:18:00* Test Item Value Reference Range Comments SODIUM (test code=NA) 137 mmol/L 136-145 POTASSIUM (test code=K) 4.3 mmol/L 3.5-5.1 CHLORIDE (test code=CL) 97.0 mmol/L 98-107 CARBON DIOXIDE (test code=CO2) 33.0 mmol/L 21-32 ANION GAP (test code=GAP) 11.3 10-20 GLUCOSE (test code=GLU) 113 mg/dL 74-106 BLOOD UREA NITROGEN (test code=BUN) 37 mg/dL 7-18 GLOMERULAR FILTRATION RATE (test code=GFR) > 60 mL/min >=60 Estimated GFR by using Modified MDRD formula.Chronic kidney disease is defined as either kidney damageor GFR <60 mL/min/1.73 m2 for >3 months. CREATININE (test code=CREAT) 0.70 mg/dL 0.55-1.02 Note change in reference range due to change in reagent. BUN/CREATININE RATIO (test code=BUN/CREA) 54.7 10-20 CALCIUM (test code=CA) 9.1 mg/dL 8.5-10.1 HEPATIC FUNCTION [id number] 04:18:00* Test Item Value Reference Range Comments TOTAL PROTEIN (test code=PROT) 7.5 gram/dL 6.4-8.2 ALBUMIN (test code=ALB) 3.2 g/dL 3.4-5.0 GLOBULIN (test code=GLOB) 4.3 gram/dL 2.7-4.2 ALBUMIN/GLOBULIN RATIO (test code=A/G) 0.7 0.75-1.50 BILIRUBIN TOTAL (test code=BILT) 0.40 mg/dL 0.0-1.0 BILIRUBIN DIRECT (test code=BILD) 0.17 mg/dL 0.0-0.20 SGOT/AST (test code=AST) 24 IUnit/L 15-37 SGPT/ALT (test code=ALT) 32 IUnit/L 12-78 ALKALINE PHOSPHATASE TOTAL (test code=ALKP) 135 IUnit/L 45-117 Note change in reference range due to change in reagent. [id number] 04:18:00* Test Item Value Reference Range Comments TROPONIN-I (test code=TROPI) <0.015 ng/mL 0-0.045 LACTIC [id number] 04:18:00* Test Item Value Reference Range Comments LACTIC ACID (test code=LACT) 1.0 mmol/L 0.4-1.9 BASIC METABOLIC [id number] 04:08:00* Test Item Value Reference Range Comments SODIUM (test code=NA) 137 mmol/L 136-145 POTASSIUM (test code=K) 4.3 mmol/L 3.5-5.1 CHLORIDE (test code=CL) 97.0 mmol/L 98-107 CARBON DIOXIDE (test code=CO2) mmol/L 21-32 ANION GAP (test code=GAP) 10-20 GLUCOSE (test code=GLU) mg/dL 74-106 BLOOD UREA NITROGEN (test code=BUN) mg/dL 7-18 GLOMERULAR FILTRATION RATE (test code=GFR) mL/min >=60 CREATININE (test code=CREAT) mg/dL 0.55-1.02 BUN/CREATININE RATIO (test code=BUN/CREA) 10-20 CALCIUM (test code=CA) mg/dL 8.5-10.1 HEPATIC FUNCTION [id number] 04:08:00* Test Item Value Reference Range Comments TOTAL PROTEIN (test code=PROT) gram/dL 6.4-8.2 ALBUMIN (test code=ALB) g/dL 3.4-5.0 GLOBULIN (test code=GLOB) gram/dL 2.7-4.2 ALBUMIN/GLOBULIN RATIO (test code=A/G) 0.75-1.50 BILIRUBIN TOTAL (test code=BILT) mg/dL 0.0-1.0 BILIRUBIN DIRECT (test code=BILD) mg/dL 0.0-0.20 SGOT/AST (test code=AST) IUnit/L 15-37 SGPT/ALT (test code=ALT) IUnit/L 12-78 ALKALINE PHOSPHATASE TOTAL (test code=ALKP) IUnit/L 45-117 [id number] 04:08:00* Test Item Value Reference Range Comments TROPONIN-I (test code=TROPI) ng/mL 0-0.045 - XR CHEST 1 [id number] 04:01:00 FAX: Van Chew MD [phone] Pace: St: REG Name: ANA CRISTINA NAPOLES [facility] : [birth year] Age/S: 83/F [address] [facility] Unit #: [id number] Loc: [place] [address] Phys: Van Chew MD Acct: [id number] Dis Date: Status: REG ER PHONE #: [phone] Exam Date: 10/08/2018 0348 FAX #: [phone] Reason: CODE SEPSIS EXAMS: CPT CODE: [id number] XR CHEST 1 V 46241 - XR CHEST 1 V, 10/08/2018 3:10 AM Reason For Examination: CODE SEPSIS Comparison: 11/24 Location: R16 Findings LUNGS: No definite pulmonary edema or consolidation. Examination of the u pper lungs are very limited secondary to overlying densities likely reflec tive of patient's hands. Questionable underlying emphysema PLEURA : No pleural effusions CARDIOMEDIASTINAL SILHOUETTE Aortic ectasia is noted IMPRESSION: Limited exam No plain film evidence of acute cardiopulmonary abnormality is visualized Additional findings as detailed above at 0401 Repo rted and signed by: Sera Sparks M.D. CC: Van Chew MD Technologist: Ryann Ratliff Trnscrd Date/Time/By: 10/08/2018 (400) : By: [email or web address] Orig Print D/T: S: 10/08/2018 (0407) PAGE 1 Signed Report CBC W/AUTO DIFF 2018-10-08 03:57:00* Test Item Value Reference Range Comments WHITE BLOOD CELL (test code=WBC) 9.8 K/mm3 4.5-12.5 RED BLOOD CELL (test code=RBC) 3.69 mill/mm3 3.7-5.2 HEMOGLOBIN (test code=HGB) 12.7 gram/dL 11.5-15.5 HEMATOCRIT (test code=HCT) 36.7 % 36.0-46.0 MEAN CELL VOLUME (test code=MCV) 99.5 fL 80-98 MEAN CELL HGB (test code=MCH) 34.4 picogram 27.0-33.0 MEAN CELL HGB CONCETRATION (test code=MCHC) 34.6 gram/dL 33.0-36.0 RED CELL DISTRIBUTION WIDTH (test code=RDW) 16.4 % 11.6-16.2 RED CELL DISTRIBUTION WIDTH SD (test code=RDW-SD) 52.5 fL 37.0-51.0 PLATELET COUNT (test code=PLT) 275 K/mm3 150-450 MEAN PLATELET VOLUME (test code=MPV) 8.2 fL 6.7-11.0 NEUTROPHIL % (test code=NT%) 76.2 % 39.0-69.0 IMMATURE GRANULOCYTE % (test code=IG%) 0.5 % 0.0-5.0 LYMPHOCYTE % (test code=LY%) 14.8 % 25.0-55.0 MONOCYTE % (test code=MO%) 7.1 % 0.0-10.0 EOSINOPHIL % (test code=EO%) 1.1 % 0.0-5.0 BASOPHIL % (test code=BA%) 0.3 % 0.0-1.0 NUCLEATED RBC % (test code=NRBC%) 0.0 % 0-0 NEUTROPHIL # (test code=NT#) 7.43 K/mm3 1.8-7.7 IMMATURE GRANULOCYTE # (test code=IG#) 0.05 x10 3/uL 0-0.03 LYMPHOCYTE # (test code=LY#) 1.44 K/mm3 1.0-5.0 MONOCYTE # (test code=MO#) 0.69 K/mm3 0-0.8 EOSINOPHIL # (test code=EO#) 0.11 K/mm3 0.0-0.5 BASOPHIL # (test code=BA#) 0.03 K/mm3 0.0-0.2 NUCLEATED RBC # (test code=NRBC#) 0.00 K/mm3 0.0-0.1 MANUAL DIFF REQUIRED (test code=MDIFF) NO CBC W/AUTO [id number] 03:55:00* Test Item Value Reference Range Comments WHITE BLOOD CELL (test code=WBC) K/mm3 4.5-12.5 RED BLOOD CELL (test code=RBC) mill/mm3 3.7-5.2 HEMOGLOBIN (test code=HGB) 12.7 gram/dL 11.5-15.5 HEMATOCRIT (test code=HCT) 36.7 % 36.0-46.0 MEAN CELL VOLUME (test code=MCV) fL 80-98 MEAN CELL HGB (test code=MCH) picogram 27.0-33.0 MEAN CELL HGB CONCETRATION (test code=MCHC) gram/dL 33.0-36.0 RED CELL DISTRIBUTION WIDTH (test code=RDW) % 11.6-16.2 RED CELL DISTRIBUTION WIDTH SD (test code=RDW-SD) fL 37.0-51.0 PLATELET COUNT (test code=PLT) K/mm3 150-450 MEAN PLATELET VOLUME (test code=MPV) fL 6.7-11.0 NEUTROPHIL % (test code=NT%) % 39.0-69.0 IMMATURE GRANULOCYTE % (test code=IG%) % 0.0-5.0 LYMPHOCYTE % (test code=LY%) % 25.0-55.0 MONOCYTE % (test code=MO%) % 0.0-10.0 EOSINOPHIL % (test code=EO%) % 0.0-5.0 BASOPHIL % (test code=BA%) % 0.0-1.0 NEUTROPHIL # (test code=NT#) K/mm3 1.8-7.7 LYMPHOCYTE # (test code=LY#) K/mm3 1.0-5.0 MONOCYTE # (test code=MO#) K/mm3 0-0.8 EOSINOPHIL # (test code=EO#) K/mm3 0.0-0.5 BASOPHIL # (test code=BA#) K/mm3 0.0-0.2 [id number] 16:50:00* Test Item Value Reference Range Comments GLUBED (test code=GLUBED) 104 mg/dL 74-106 Performed by certified dye reel operator helper at [facility] ([facility]) - US GUIDANCE [facility] [id number] 15:57:00 Name: ANA CRISTINA FLANNERY [facility] SP : 1935 Age/S: 83 / F [address] [facility] Unit #: [id number] Loc: [place] [address] Phys: Adam Wood MD Acct: [id number] Dis Date: Status: ADM IN PHONE #: [phone] Exam Date: 09/28/2018 1640 FAX #: [phone] Reason: EXAMS: CPT CODE: [id number] US GUIDANCE VASC ACCESS 16111 Fluoro Time: 0 DAP (Gy m2): 0 Air Kerma (mGy): 0 EXAM: Insertion of a central line with sonographic guidance; INFORMATION: HISTORY of CVA; GI bleed; no IV access; contractions of the upper extremities; TECHNIQUE AND FINDINGS: Informed consent was obtained and the patient was placed supine on the procedure table. Because of the patient's contractions of the upper extremities insertion of a central line via subclavian vein or IJ access was not feasible. The decision was made to insert a femoral central line. The patient's skin in the right groin was prepped and draped in the usual sterile fashion, applying all elements of maximal sterile barrier technique. Ultrasound of the right groin demonstrated a patent and compressible common femoral vein. Sonographic images were stored in PACS. Xylocaine was administered and using sonographic guidance the right common femoral vein was then accessed with a micropuncture system, followed by insertion of an 035 guidewire. Sequential dilatation was perf ormed and a 7 Chinese triple-lumen central line was then inserted. Good blo od return was noticed; the catheter was sutured to the skin and flushed wi th heparinized saline. No complications. IMPRESSION: Successful insertion of a right femoral central line, using sonograph ic guidance. at 1557 Reported and signed by: Parker Garcia M.D. CC: Adam Wood MD Technologist: Gayle Peres RT(R) Trnscb Date/Time: 10/01/2018 (8952) Doreen Orig Print D/T: S: 10/01/2018 (6765) PAGE 1 Signed Report - SP FLUORO GUID CTRL ACC DEV 2018-10-01 15:57:00 Name: ANA CRISTINA FLANNERY [facility] : 1935 Age/S: 83 / F [address] Unit #: [id number] Loc: [place] [address] Phys: Adam Wood MD Acct: [id number] Dis Date: Status: ADM IN PHONE #: [phone] Exam Date: 09/28/2018 1640 FAX #: [phone] Reason: EXAMS: CPT CODE: [id number] SP FLUORO GUID CTRL ACC DEV 63987 Fluoro Time: 22 DAP (Gy m2): 0.2 Air Kerma (mGy): 1 EXAM: Insertion of a central line with sonographic guidance; INFORMATION: HISTORY of CVA; GI bleed; no IV access; contractions of the upper extremities; TECHNIQUE AND FINDINGS: Informed consent was obtained and the patient was placed supine on the procedure table. Because of the patient's contractions of the upper extremities insertion of a central line via subclavian vein or IJ access was not feasible. The decision was made to insert a femoral central line. The patient's skin in the right groin was prepped and draped in the usual sterile fashion, applying all elements of maximal sterile barrier technique. Ultrasound of the right groin demonstrated a patent and compressible common femoral vein. Sonographic images were stored in PACS. Xylocaine was administered and using sonographic guidance the right common femoral vein was then accessed with a micropuncture system, followed by insertion of an 035 guidewire. Sequential dilatation was performed and a 7 Chinese triple-lumen central line was then inserted. Good blood return was noticed; the catheter was sutured to the skin and flushed with heparinized saline. No complications. IMPRESSION: Successful insertion of a right femoral central line, using sonographic guidance. at 6313 Reported and signed by: Parker Garcia M.D. CC: Adam Wood MD Technologist: Gayle Peres RT(R) Trnscb Date/Time: 10/01/2018 (2460) Doreen Orig Print D/T: S: 10/01/2018 (2729) PAGE 1 Signed Report - CONT INJ GS/ DU/ JJ/ [id number] 15:54:00 Name: ANA CRISTINA FLANNERY [facility] : 1935 Age/S: 83 / F [address] Unit #: [id number] Loc: [place] [address] Phys: Kary Wood MD Acct: [id number] Di s Date: Status: ADM IN PHONE #: Exam Date: 09/28/2018 1640 FAX #: [phone] Reason: EXAMS: CPT CODE: [id number] CONT INJ GS/ DU/ [place]/ [place] [address] Fluoro Time: 22 DAP (Gy m2): 0.2 Air Kerma (mGy): 1 EXAM: Evaluation of gastrojejunal feeding tube with contrast injection under fluoroscopic guidance; INFORMATION: Occluded jejunal port; IMPRESSION: Contrast injection shows a well-positioned gastrojejunal feeding tube with its retention balloon in the gastric antrum and the tip in the proximal jej unum. The tube is patent and there is opacification of a nondilated, nor mal jejunal loop. Fluoroscopy Time: 22 sec CAK : 1 mG y DAP : 200 mGy sq cm at 1554 Reported and signed by: Parker Garcia M.D. CC: Adam Wood MD Techn ologist: Gayle Peres RT(R) Trnscb Date/Time : 10/01/2018 (5774) Doreen Orig Print D/T: S: 10/02/19 19 (3067) PAGE 1 Signed Report [id number] 11:41:00* Test Item Value Reference Range Comments GLUBED (test code=GLUBED) 121 mg/dL 74-106 Performed by certified dye reel operator helper at [facility]) COMPREHENSIVE METABOLIC [id number] 07:32:00* Test Item Value Reference Range Comments SODIUM (test code=NA) 130 mmol/L 136-145 POTASSIUM (test code=K) 4.4 mmol/L 3.5-5.1 CHLORIDE (test code=CL) 94.0 mmol/L 98-107 CARBON DIOXIDE (test code=CO2) 27.0 mmol/L 21-32 ANION GAP (test code=GAP) 13.4 10-20 GLUCOSE (test code=GLU) 130 mg/dL 74-106 BLOOD UREA NITROGEN (test code=BUN) 25 mg/dL 7-18 GLOMERULAR FILTRATION RATE (test code=GFR) > 60 mL/min >=60 Estimated GFR by using Modified MDRD formula.Chronic kidney disease is defined as either kidney damageor GFR <60 mL/min/1.73 m2 for >3 months. CREATININE (test code=CREAT) 0.50 mg/dL 0.55-1.02 Note change in reference range due to change in reagent. BUN/CREATININE RATIO (test code=BUN/CREA) 50.0 10-20 TOTAL PROTEIN (test code=PROT) 6.3 gram/dL 6.4-8.2 ALBUMIN (test code=ALB) 2.9 g/dL 3.4-5.0 GLOBULIN (test code=GLOB) 3.4 gram/dL 2.7-4.2 ALBUMIN/GLOBULIN RATIO (test code=A/G) 0.9 0.75-1.50 CALCIUM (test code=CA) 8.2 mg/dL 8.5-10.1 BILIRUBIN TOTAL (test code=BILT) 0.50 mg/dL 0.0-1.0 SGOT/AST (test code=AST) 15 IUnit/L 15-37 SGPT/ALT (test code=ALT) 16 IUnit/L 12-78 ALKALINE PHOSPHATASE TOTAL (test code=ALKP) 105 IUnit/L 45-117 Note change in reference range due to change in reagent. CBC W/AUTO [id number] 07:28:00* Test Item Value Reference Range Comments WHITE BLOOD CELL (test code=WBC) 11.3 K/mm3 4.5-12.5 RED BLOOD CELL (test code=RBC) 3.58 mill/mm3 3.7-5.2 HEMOGLOBIN (test code=HGB) 12.3 gram/dL 11.5-15.5 HEMATOCRIT (test code=HCT) 35.1 % 36.0-46.0 MEAN CELL VOLUME (test code=MCV) 98.0 fL 80-98 MEAN CELL HGB (test code=MCH) 34.4 picogram 27.0-33.0 MEAN CELL HGB CONCETRATION (test code=MCHC) 35.0 gram/dL 33.0-36.0 RED CELL DISTRIBUTION WIDTH (test code=RDW) 16.1 % 11.6-16.2 RED CELL DISTRIBUTION WIDTH SD (test code=RDW-SD) 53.0 fL 37.0-51.0 PLATELET COUNT (test code=PLT) 202 K/mm3 150-450 RESULT VERIFIED BY REPEAT ANALYSIS MEAN PLATELET VOLUME (test code=MPV) 8.9 fL 6.7-11.0 NEUTROPHIL % (test code=NT%) 82.7 % 39.0-69.0 IMMATURE GRANULOCYTE % (test code=IG%) 0.7 % 0.0-5.0 LYMPHOCYTE % (test code=LY%) 9.7 % 25.0-55.0 MONOCYTE % (test code=MO%) 5.0 % 0.0-10.0 EOSINOPHIL % (test code=EO%) 1.7 % 0.0-5.0 BASOPHIL % (test code=BA%) 0.2 % 0.0-1.0 NUCLEATED RBC % (test code=NRBC%) 0.0 % 0-0 NEUTROPHIL # (test code=NT#) 9.35 K/mm3 1.8-7.7 IMMATURE GRANULOCYTE # (test code=IG#) 0.08 x10 3/uL 0-0.03 LYMPHOCYTE # (test code=LY#) 1.09 K/mm3 1.0-5.0 MONOCYTE # (test code=MO#) 0.56 K/mm3 0-0.8 EOSINOPHIL # (test code=EO#) 0.19 K/mm3 0.0-0.5 BASOPHIL # (test code=BA#) 0.02 K/mm3 0.0-0.2 NUCLEATED RBC # (test code=NRBC#) 0.00 K/mm3 0.0-0.1 MANUAL DIFF REQUIRED (test code=MDIFF) NO [id number] 07:27:00* Test Item Value Reference Range Comments PHOSPHORUS (test code=PHOS) 2.8 mg/dL 2.5-4.9 [id number] 07:27:00* Test Item Value Reference Range Comments MAGNESIUM (test code=MAG) 2.1 mg/dL 1.8-2.4 COMPREHENSIVE METABOLIC [id number] 07:19:00* Test Item Value Reference Range Comments SODIUM (test code=NA) 130 mmol/L 136-145 POTASSIUM (test code=K) 4.4 mmol/L 3.5-5.1 CHLORIDE (test code=CL) 94.0 mmol/L 98-107 CARBON DIOXIDE (test code=CO2) mmol/L 21-32 ANION GAP (test code=GAP) 10-20 GLUCOSE (test code=GLU) mg/dL 74-106 BLOOD UREA NITROGEN (test code=BUN) mg/dL 7-18 GLOMERULAR FILTRATION RATE (test code=GFR) mL/min >=60 CREATININE (test code=CREAT) mg/dL 0.55-1.02 BUN/CREATININE RATIO (test code=BUN/CREA) 10-20 TOTAL PROTEIN (test code=PROT) gram/dL 6.4-8.2 ALBUMIN (test code=ALB) g/dL 3.4-5.0 GLOBULIN (test code=GLOB) gram/dL 2.7-4.2 ALBUMIN/GLOBULIN RATIO (test code=A/G) 0.75-1.50 CALCIUM (test code=CA) mg/dL 8.5-10.1 BILIRUBIN TOTAL (test code=BILT) mg/dL 0.0-1.0 SGOT/AST (test code=AST) IUnit/L 15-37 SGPT/ALT (test code=ALT) IUnit/L 12-78 ALKALINE PHOSPHATASE TOTAL (test code=ALKP) IUnit/L 45-117 [id number] 05:22:00* Test Item Value Reference Range Comments GLUBED (test code=GLUBED) 150 mg/dL 74-106 Performed by certified dye reel operator helper at [facility]) [id number] 21:08:00* Test Item Value Reference Range Comments GLUBED (test code=GLUBED) 113 mg/dL 74-106 Performed by certified dye reel operator helper at [facility])Notified Nurse~DKA Protocol~ [id number] 17:01:00* Test Item Value Reference Range Comments GLUBED (test code=GLUBED) 139 mg/dL 74-106 Performed by certified dye reel operator helper at [facility]) [id number] 12:40:00* Test Item Value Reference Range Comments GLUBED (test code=GLUBED) 150 mg/dL 74-106 Performed by certified dye reel operator helper at [facility]) BASIC METABOLIC [id number] 05:56:00* Test Item Value Reference Range Comments SODIUM (test code=NA) 130 mmol/L 136-145 POTASSIUM (test code=K) 3.7 mmol/L 3.5-5.1 CHLORIDE (test code=CL) 96.0 mmol/L 98-107 CARBON DIOXIDE (test code=CO2) 27.0 mmol/L 21-32 ANION GAP (test code=GAP) 10.7 10-20 GLUCOSE (test code=GLU) 150 mg/dL 74-106 BLOOD UREA NITROGEN (test code=BUN) 24 mg/dL 7-18 RESULT VERIFIED BY REPEAT ANALYSIS GLOMERULAR FILTRATION RATE (test code=GFR) > 60 mL/min >=60 Estimated GFR by using Modified MDRD formula.Chronic kidney disease is defined as either kidney damageor GFR <60 mL/min/1.73 m2 for >3 months. CREATININE (test code=CREAT) 0.50 mg/dL 0.55-1.02 Note change in reference range due to change in reagent. BUN/CREATININE RATIO (test code=BUN/CREA) 48.0 10-20 CALCIUM (test code=CA) 7.9 mg/dL 8.5-10.1 [id number] 05:56:00* Test Item Value Reference Range Comments MAGNESIUM (test code=MAG) 1.9 mg/dL 1.8-2.4 [id number] 05:55:00* Test Item Value Reference Range Comments PHOSPHORUS (test code=PHOS) 3.0 mg/dL 2.5-4.9 [id number] 05:55:00* Test Item Value Reference Range Comments MAGNESIUM (test code=MAG) 2.0 mg/dL 1.8-2.4 [id number] 05:43:00* Test Item Value Reference Range Comments PHOSPHORUS (test code=PHOS) mg/dL 2.5-4.9 [id number] 05:43:00* Test Item Value Reference Range Comments MAGNESIUM (test code=MAG) 2.0 mg/dL 1.8-2.4 [id number] 05:42:00* Test Item Value Reference Range Comments GLUBED (test code=GLUBED) 157 mg/dL 74-106 Performed by certified dye reel operator helper at [facility] ([facility]) BASIC METABOLIC [id number] 05:40:00* Test Item Value Reference Range Comments SODIUM (test code=NA) 130 mmol/L 136-145 POTASSIUM (test code=K) 3.7 mmol/L 3.5-5.1 CHLORIDE (test code=CL) 96.0 mmol/L 98-107 CARBON DIOXIDE (test code=CO2) mmol/L 21-32 ANION GAP (test code=GAP) 10-20 GLUCOSE (test code=GLU) mg/dL 74-106 BLOOD UREA NITROGEN (test code=BUN) mg/dL 7-18 GLOMERULAR FILTRATION RATE (test code=GFR) mL/min >=60 CREATININE (test code=CREAT) mg/dL 0.55-1.02 BUN/CREATININE RATIO (test code=BUN/CREA) 10-20 CALCIUM (test code=CA) mg/dL 8.5-10.1 [id number] 05:40:00* Test Item Value Reference Range Comments MAGNESIUM (test code=MAG) mg/dL 1.8-2.4 [id number] 21:16:00* Test Item Value Reference Range Comments GLUBED (test code=GLUBED) 157 mg/dL 74-106 Performed by certified dye reel operator helper at [facility] ([facility]) [id number] 16:59:00* Test Item Value Reference Range Comments GLUBED (test code=GLUBED) 119 mg/dL 74-106 Performed by certified dye reel operator helper at [facility]) [id number] 11:42:00* Test Item Value Reference Range Comments GLUBED (test code=GLUBED) 121 mg/dL 74-106 Performed by certified dye reel operator helper at [facility] ([facility]) COMPREHENSIVE METABOLIC [id number] 06:39:00* Test Item Value Reference Range Comments SODIUM (test code=NA) 133 mmol/L 136-145 POTASSIUM (test code=K) 3.7 mmol/L 3.5-5.1 CHLORIDE (test code=CL) 97.0 mmol/L 98-107 CARBON DIOXIDE (test code=CO2) 30.0 mmol/L 21-32 ANION GAP (test code=GAP) 9.7 10-20 GLUCOSE (test code=GLU) 110 mg/dL 74-106 BLOOD UREA NITROGEN (test code=BUN) 15 mg/dL 7-18 GLOMERULAR FILTRATION RATE (test code=GFR) > 60 mL/min >=60 Estimated GFR by using Modified MDRD formula.Chronic kidney disease is defined as either kidney damageor GFR <60 mL/min/1.73 m2 for >3 months. CREATININE (test code=CREAT) 0.50 mg/dL 0.55-1.02 Note change in reference range due to change in reagent. BUN/CREATININE RATIO (test code=BUN/CREA) 30.0 10-20 TOTAL PROTEIN (test code=PROT) 6.1 gram/dL 6.4-8.2 ALBUMIN (test code=ALB) 2.5 g/dL 3.4-5.0 GLOBULIN (test code=GLOB) 3.6 gram/dL 2.7-4.2 ALBUMIN/GLOBULIN RATIO (test code=A/G) 0.7 0.75-1.50 CALCIUM (test code=CA) 8.3 mg/dL 8.5-10.1 BILIRUBIN TOTAL (test code=BILT) 0.50 mg/dL 0.0-1.0 SGOT/AST (test code=AST) 10 IUnit/L 15-37 SGPT/ALT (test code=ALT) 15 IUnit/L 12-78 ALKALINE PHOSPHATASE TOTAL (test code=ALKP) 98 IUnit/L 45-117 Note change in reference range due to change in reagent. [id number] 06:39:00* Test Item Value Reference Range Comments PHOSPHORUS (test code=PHOS) 3.0 mg/dL 2.5-4.9 [id number] 06:39:00* Test Item Value Reference Range Comments MAGNESIUM (test code=MAG) 1.9 mg/dL 1.8-2.4 COMPREHENSIVE METABOLIC [id number] 06:21:00* Test Item Value Reference Range Comments SODIUM (test code=NA) 133 mmol/L 136-145 POTASSIUM (test code=K) 3.7 mmol/L 3.5-5.1 CHLORIDE (test code=CL) 97.0 mmol/L 98-107 CARBON DIOXIDE (test code=CO2) mmol/L 21-32 ANION GAP (test code=GAP) 10-20 GLUCOSE (test code=GLU) mg/dL 74-106 BLOOD UREA NITROGEN (test code=BUN) mg/dL 7-18 GLOMERULAR FILTRATION RATE (test code=GFR) mL/min >=60 CREATININE (test code=CREAT) mg/dL 0.55-1.02 BUN/CREATININE RATIO (test code=BUN/CREA) 10-20 TOTAL PROTEIN (test code=PROT) gram/dL 6.4-8.2 ALBUMIN (test code=ALB) g/dL 3.4-5.0 GLOBULIN (test code=GLOB) gram/dL 2.7-4.2 ALBUMIN/GLOBULIN RATIO (test code=A/G) 0.75-1.50 CALCIUM (test code=CA) mg/dL 8.5-10.1 BILIRUBIN TOTAL (test code=BILT) mg/dL 0.0-1.0 SGOT/AST (test code=AST) IUnit/L 15-37 SGPT/ALT (test code=ALT) IUnit/L 12-78 ALKALINE PHOSPHATASE TOTAL (test code=ALKP) IUnit/L 45-117 [id number] 06:21:00* Test Item Value Reference Range Comments PHOSPHORUS (test code=PHOS) mg/dL 2.5-4.9 [id number] 06:21:00* Test Item Value Reference Range Comments MAGNESIUM (test code=MAG) mg/dL 1.8-2.4 CBC W/AUTO [id number] 05:41:00* Test Item Value Reference Range Comments WHITE BLOOD CELL (test code=WBC) 5.9 K/mm3 4.5-12.5 RED BLOOD CELL (test code=RBC) 3.50 mill/mm3 3.7-5.2 HEMOGLOBIN (test code=HGB) 12.0 gram/dL 11.5-15.5 HEMATOCRIT (test code=HCT) 33.6 % 36.0-46.0 MEAN CELL VOLUME (test code=MCV) 96.0 fL 80-98 MEAN CELL HGB (test code=MCH) 34.3 picogram 27.0-33.0 MEAN CELL HGB CONCETRATION (test code=MCHC) 35.7 gram/dL 33.0-36.0 RED CELL DISTRIBUTION WIDTH (test code=RDW) 16.1 % 11.6-16.2 RED CELL DISTRIBUTION WIDTH SD (test code=RDW-SD) 51.0 fL 37.0-51.0 PLATELET COUNT (test code=PLT) 151 K/mm3 150-450 MEAN PLATELET VOLUME (test code=MPV) 8.5 fL 6.7-11.0 NEUTROPHIL % (test code=NT%) 66.5 % 39.0-69.0 IMMATURE GRANULOCYTE % (test code=IG%) 0.2 % 0.0-5.0 LYMPHOCYTE % (test code=LY%) 22.0 % 25.0-55.0 MONOCYTE % (test code=MO%) 6.4 % 0.0-10.0 EOSINOPHIL % (test code=EO%) 4.6 % 0.0-5.0 BASOPHIL % (test code=BA%) 0.3 % 0.0-1.0 NUCLEATED RBC % (test code=NRBC%) 0.0 % 0-0 NEUTROPHIL # (test code=NT#) 3.92 K/mm3 1.8-7.7 IMMATURE GRANULOCYTE # (test code=IG#) 0.01 x10 3/uL 0-0.03 LYMPHOCYTE # (test code=LY#) 1.30 K/mm3 1.0-5.0 MONOCYTE # (test code=MO#) 0.38 K/mm3 0-0.8 EOSINOPHIL # (test code=EO#) 0.27 K/mm3 0.0-0.5 BASOPHIL # (test code=BA#) 0.02 K/mm3 0.0-0.2 NUCLEATED RBC # (test code=NRBC#) 0.00 K/mm3 0.0-0.1 MANUAL DIFF REQUIRED (test code=MDIFF) NO [id number] 05:16:00* Test Item Value Reference Range Comments GLUBED (test code=GLUBED) 118 mg/dL 74-106 Performed by certified dye reel operator helper at [facility]) [id number] 21:07:00* Test Item Value Reference Range Comments GLUBED (test code=GLUBED) 108 mg/dL 74-106 Performed by certified dye reel operator helper at [facility]) [id number] 16:20:00* Test Item Value Reference Range Comments GLUBED (test code=GLUBED) 96 mg/dL 74-106 Performed by certified dye reel operator helper at [facility]) [id number] 13:04:00* Test Item Value Reference Range Comments GLUBED (test code=GLUBED) 121 mg/dL 74-106 Performed by certified dye reel operator helper at [facility]) CBC W/AUTO [id number] 11:48:00* Test Item Value Reference Range Comments WHITE BLOOD CELL (test code=WBC) 5.8 K/mm3 4.5-12.5 RED BLOOD CELL (test code=RBC) 3.54 mill/mm3 3.7-5.2 HEMOGLOBIN (test code=HGB) 11.9 gram/dL 11.5-15.5 RESULT VERIFIED BY REPEAT ANALYSIS HEMATOCRIT (test code=HCT) 33.6 % 36.0-46.0 MEAN CELL VOLUME (test code=MCV) 94.9 fL 80-98 MEAN CELL HGB (test code=MCH) 33.6 picogram 27.0-33.0 MEAN CELL HGB CONCETRATION (test code=MCHC) 35.4 gram/dL 33.0-36.0 RED CELL DISTRIBUTION WIDTH (test code=RDW) 16.0 % 11.6-16.2 RED CELL DISTRIBUTION WIDTH SD (test code=RDW-SD) 50.5 fL 37.0-51.0 PLATELET COUNT (test code=PLT) 150 K/mm3 150-450 MEAN PLATELET VOLUME (test code=MPV) 7.8 fL 6.7-11.0 NEUTROPHIL % (test code=NT%) 64.8 % 39.0-69.0 IMMATURE GRANULOCYTE % (test code=IG%) 0.2 % 0.0-5.0 LYMPHOCYTE % (test code=LY%) 23.9 % 25.0-55.0 MONOCYTE % (test code=MO%) 6.5 % 0.0-10.0 EOSINOPHIL % (test code=EO%) 4.3 % 0.0-5.0 BASOPHIL % (test code=BA%) 0.3 % 0.0-1.0 NUCLEATED RBC % (test code=NRBC%) 0.0 % 0-0 NEUTROPHIL # (test code=NT#) 3.77 K/mm3 1.8-7.7 IMMATURE GRANULOCYTE # (test code=IG#) 0.01 x10 3/uL 0-0.03 LYMPHOCYTE # (test code=LY#) 1.39 K/mm3 1.0-5.0 MONOCYTE # (test code=MO#) 0.38 K/mm3 0-0.8 EOSINOPHIL # (test code=EO#) 0.25 K/mm3 0.0-0.5 BASOPHIL # (test code=BA#) 0.02 K/mm3 0.0-0.2 NUCLEATED RBC # (test code=NRBC#) 0.00 K/mm3 0.0-0.1 MANUAL DIFF REQUIRED (test code=MDIFF) NO [id number] 06:40:00* Test Item Value Reference Range Comments GLUBED (test code=GLUBED) 110 mg/dL 74-106 Performed by certified dye reel operator helper at [facility]) [id number] 21:01:00* Test Item Value Reference Range Comments GLUBED (test code=GLUBED) 111 mg/dL 74-106 Performed by certified dye reel operator helper at [facility]) [id number] 17:48:00* Test Item Value Reference Range Comments GLUBED (test code=GLUBED) 121 mg/dL 74-106 Performed by certified dye reel operator helper at [facility]) [id number] 11:29:00* Test Item Value Reference Range Comments GLUBED (test code=GLUBED) 128 mg/dL 74-106 Performed by certified dye reel operator helper at [facility]) [id number] 08:14:00* Test Item Value Reference Range Comments PREALBUMIN (test code=PREALB) 7.0 mg/dL 9-32 Performed At: [facility] [id number] Tomy Navarrete MD Ph:[phone] COMPREHENSIVE METABOLIC [id number] 07:46:00* Test Item Value Reference Range Comments SODIUM (test code=NA) 137 mmol/L 136-145 POTASSIUM (test code=K) 3.5 mmol/L 3.5-5.1 CHLORIDE (test code=CL) 103.0 mmol/L 98-107 CARBON DIOXIDE (test code=CO2) 25.0 mmol/L 21-32 ANION GAP (test code=GAP) 12.5 10-20 GLUCOSE (test code=GLU) 127 mg/dL 74-106 BLOOD UREA NITROGEN (test code=BUN) 17 mg/dL 7-18 GLOMERULAR FILTRATION RATE (test code=GFR) > 60 mL/min >=60 Estimated GFR by using Modified MDRD formula.Chronic kidney disease is defined as either kidney damageor GFR <60 mL/min/1.73 m2 for >3 months. CREATININE (test code=CREAT) 0.60 mg/dL 0.55-1.02 Note change in reference range due to change in reagent. BUN/CREATININE RATIO (test code=BUN/CREA) 28.3 10-20 TOTAL PROTEIN (test code=PROT) 5.0 gram/dL 6.4-8.2 ALBUMIN (test code=ALB) 2.3 g/dL 3.4-5.0 GLOBULIN (test code=GLOB) 2.7 gram/dL 2.7-4.2 ALBUMIN/GLOBULIN RATIO (test code=A/G) 0.9 0.75-1.50 CALCIUM (test code=CA) 7.9 mg/dL 8.5-10.1 BILIRUBIN TOTAL (test code=BILT) 0.20 mg/dL 0.0-1.0 SGOT/AST (test code=AST) 12 IUnit/L 15-37 SGPT/ALT (test code=ALT) 16 IUnit/L 12-78 ALKALINE PHOSPHATASE TOTAL (test code=ALKP) 89 IUnit/L 45-117 Note change in reference range due to change in reagent. [id number] 07:46:00* Test Item Value Reference Range Comments LIPASE (test code=LIP) 75 U/L 73.0-393.0 COMPREHENSIVE METABOLIC [id number] 07:32:00* Test Item Value Reference Range Comments SODIUM (test code=NA) 137 mmol/L 136-145 POTASSIUM (test code=K) 3.5 mmol/L 3.5-5.1 CHLORIDE (test code=CL) 103.0 mmol/L 98-107 CARBON DIOXIDE (test code=CO2) mmol/L 21-32 ANION GAP (test code=GAP) 10-20 GLUCOSE (test code=GLU) mg/dL 74-106 BLOOD UREA NITROGEN (test code=BUN) mg/dL 7-18 GLOMERULAR FILTRATION RATE (test code=GFR) mL/min >=60 CREATININE (test code=CREAT) mg/dL 0.55-1.02 BUN/CREATININE RATIO (test code=BUN/CREA) 10-20 TOTAL PROTEIN (test code=PROT) gram/dL 6.4-8.2 ALBUMIN (test code=ALB) g/dL 3.4-5.0 GLOBULIN (test code=GLOB) gram/dL 2.7-4.2 ALBUMIN/GLOBULIN RATIO (test code=A/G) 0.75-1.50 CALCIUM (test code=CA) mg/dL 8.5-10.1 BILIRUBIN TOTAL (test code=BILT) mg/dL 0.0-1.0 SGOT/AST (test code=AST) IUnit/L 15-37 SGPT/ALT (test code=ALT) IUnit/L 12-78 ALKALINE PHOSPHATASE TOTAL (test code=ALKP) IUnit/L 45-117 [id number] 07:32:00* Test Item Value Reference Range Comments LIPASE (test code=LIP) U/L 73.0-393.0 CBC W/AUTO [id number] 07:02:00* Test Item Value Reference Range Comments WHITE BLOOD CELL (test code=WBC) 5.9 K/mm3 4.5-12.5 RED BLOOD CELL (test code=RBC) 2.30 mill/mm3 3.7-5.2 HEMOGLOBIN (test code=HGB) 8.1 gram/dL 11.5-15.5 HEMATOCRIT (test code=HCT) 23.3 % 36.0-46.0 MEAN CELL VOLUME (test code=MCV) 101.3 fL 80-98 MEAN CELL HGB (test code=MCH) 35.2 picogram 27.0-33.0 MEAN CELL HGB CONCETRATION (test code=MCHC) 34.8 gram/dL 33.0-36.0 RED CELL DISTRIBUTION WIDTH (test code=RDW) 15.9 % 11.6-16.2 RED CELL DISTRIBUTION WIDTH SD (test code=RDW-SD) 54.1 fL 37.0-51.0 PLATELET COUNT (test code=PLT) 154 K/mm3 150-450 MEAN PLATELET VOLUME (test code=MPV) 8.6 fL 6.7-11.0 NEUTROPHIL % (test code=NT%) 79.3 % 39.0-69.0 IMMATURE GRANULOCYTE % (test code=IG%) 0.3 % 0.0-5.0 LYMPHOCYTE % (test code=LY%) 14.5 % 25.0-55.0 MONOCYTE % (test code=MO%) 5.6 % 0.0-10.0 EOSINOPHIL % (test code=EO%) 0.3 % 0.0-5.0 BASOPHIL % (test code=BA%) 0.0 % 0.0-1.0 NUCLEATED RBC % (test code=NRBC%) 0.0 % 0-0 NEUTROPHIL # (test code=NT#) 4.70 K/mm3 1.8-7.7 IMMATURE GRANULOCYTE # (test code=IG#) 0.02 x10 3/uL 0-0.03 LYMPHOCYTE # (test code=LY#) 0.86 K/mm3 1.0-5.0 MONOCYTE # (test code=MO#) 0.33 K/mm3 0-0.8 EOSINOPHIL # (test code=EO#) 0.02 K/mm3 0.0-0.5 BASOPHIL # (test code=BA#) 0.00 K/mm3 0.0-0.2 NUCLEATED RBC # (test code=NRBC#) 0.00 K/mm3 0.0-0.1 MANUAL DIFF REQUIRED (test code=MDIFF) NO [id number] 05:03:00* Test Item Value Reference Range Comments GLUBED (test code=GLUBED) 138 mg/dL 74-106 Performed by certified dye reel operator helper at [facility]) [id number] 21:32:00* Test Item Value Reference Range Comments GLUBED (test code=GLUBED) 181 mg/dL 74-106 Performed by certified dye reel operator helper at [facility]) - CVRT GASTR TO GSJEJ [id number] 16:03:00 Name: ANA CRISTINA FLANNERY [facility] : 1935 Age/S: 83 / F [address] Unit #: [id number] Loc: [place] [address] Phys: Adam Wood MD Acct: [id number] Dis Date: Status: ADM IN PHONE #: [phone] Exam Date: 09/25/2018 1520 FAX #: [phone] Reason: EXAMS: CPT CODE: [id number] CVRT GASTR TO GSJEJ TUBE [id number] Fluoro Time: 185 DAP (Gy m2): 3.1 Air Kerma (mGy): 22 EXAM: Conversion of gastrostomy to a gastrojejunal feeding tube with fluoroscopic guidance; INFORMATION: Patient with history of CVA; leakage of an indwelling gastrostomy tube. FINDINGS: Informed consent was obtained and the patient supine on the procedure table. The epigastric region was prepped and draped in the usual sterile fashion. Contrast material was injected showing the tip of the gastrostomy tube positioned in the fourth portion of the duodenum. The duodenum was otherwise unremarkable. The retention balloon was then deflated and the gastrostomy tube was removed over a guidewire. The guidewire and a 5 Chinese Kumpe catheter were then advanced into the duodenum and further into the proximal jejunum. A 22 Chinese soft Silastic gastrojejunal feeding tube was inserted and positioned with its tip in the proximal jejunal loop. The retention balloon was inflated withi n the gastric lumen. Final contrast injection showed good position of the tube with its tip in the proximal jejunal loop. Jejunal loops and duodenum are unremarkable. No complications. IMPRESSION: Successful replacement of a gastrostomy tube with a gastrojejunal f eeding tube, using fluoroscopic guidance. Fluoroscopy Time: 18 5 sec CAK : 22 mGy DAP : 3100 mGy sq cm E lectronically Signed by Guanaco Garcia on 09/08 at 1603 Reported and signed by: Lucie Garcia M.D. CC: Adam Wood MD Technologist: Gayle BOB(R) Trnscb Date/Time: 09/26/2018 (1603) [email or web address] Orig Print D/T: S: 09/26/2018 (6589) PAGE 1 Signed Report [id number] 15:58:00* Test Item Value Reference Range Comments GLUBED (test code=GLUBED) 178 mg/dL 74-106 Performed by certified dye reel operator helper at [facility]) [id number] 11:55:00* Test Item Value Reference Range Comments GLUBED (test code=GLUBED) 255 mg/dL 74-106 Performed by certified dye reel operator helper at [facility]) COMPREHENSIVE METABOLIC [id number] 09:54:00* Test Item Value Reference Range Comments SODIUM (test code=NA) 134 mmol/L 136-145 POTASSIUM (test code=K) 3.4 mmol/L 3.5-5.1 CHLORIDE (test code=CL) 102.0 mmol/L 98-107 CARBON DIOXIDE (test code=CO2) 23.0 mmol/L 21-32 ANION GAP (test code=GAP) 12.4 10-20 GLUCOSE (test code=GLU) 227 mg/dL 74-106 BLOOD UREA NITROGEN (test code=BUN) 17 mg/dL 7-18 GLOMERULAR FILTRATION RATE (test code=GFR) > 60 mL/min >=60 Estimated GFR by using Modified MDRD formula.Chronic kidney disease is defined as either kidney damageor GFR <60 mL/min/1.73 m2 for >3 months. CREATININE (test code=CREAT) 0.60 mg/dL 0.55-1.02 Note change in reference range due to change in reagent. BUN/CREATININE RATIO (test code=BUN/CREA) 28.3 10-20 TOTAL PROTEIN (test code=PROT) 5.7 gram/dL 6.4-8.2 ALBUMIN (test code=ALB) 2.3 g/dL 3.4-5.0 GLOBULIN (test code=GLOB) 3.4 gram/dL 2.7-4.2 ALBUMIN/GLOBULIN RATIO (test code=A/G) 0.7 0.75-1.50 CALCIUM (test code=CA) 7.9 mg/dL 8.5-10.1 BILIRUBIN TOTAL (test code=BILT) 0.30 mg/dL 0.0-1.0 SGOT/AST (test code=AST) 16 IUnit/L 15-37 SGPT/ALT (test code=ALT) 16 IUnit/L 12-78 ALKALINE PHOSPHATASE TOTAL (test code=ALKP) 101 IUnit/L 45-117 Note change in reference range due to change in reagent. COMPREHENSIVE METABOLIC [id number] 09:47:00* Test Item Value Reference Range Comments SODIUM (test code=NA) 134 mmol/L 136-145 POTASSIUM (test code=K) 3.4 mmol/L 3.5-5.1 CHLORIDE (test code=CL) 102.0 mmol/L 98-107 CARBON DIOXIDE (test code=CO2) mmol/L 21-32 ANION GAP (test code=GAP) 10-20 GLUCOSE (test code=GLU) mg/dL 74-106 BLOOD UREA NITROGEN (test code=BUN) mg/dL 7-18 GLOMERULAR FILTRATION RATE (test code=GFR) mL/min >=60 CREATININE (test code=CREAT) mg/dL 0.55-1.02 BUN/CREATININE RATIO (test code=BUN/CREA) 10-20 TOTAL PROTEIN (test code=PROT) gram/dL 6.4-8.2 ALBUMIN (test code=ALB) g/dL 3.4-5.0 GLOBULIN (test code=GLOB) gram/dL 2.7-4.2 ALBUMIN/GLOBULIN RATIO (test code=A/G) 0.75-1.50 CALCIUM (test code=CA) mg/dL 8.5-10.1 BILIRUBIN TOTAL (test code=BILT) mg/dL 0.0-1.0 SGOT/AST (test code=AST) IUnit/L 15-37 SGPT/ALT (test code=ALT) IUnit/L 12-78 ALKALINE PHOSPHATASE TOTAL (test code=ALKP) IUnit/L 45-117 CBC W/AUTO [id number] 07:59:00* Test Item Value Reference Range Comments WHITE BLOOD CELL (test code=WBC) 6.1 K/mm3 4.5-12.5 RED BLOOD CELL (test code=RBC) 2.57 mill/mm3 3.7-5.2 HEMOGLOBIN (test code=HGB) 8.7 gram/dL 11.5-15.5 HEMATOCRIT (test code=HCT) 25.2 % 36.0-46.0 MEAN CELL VOLUME (test code=MCV) 98.1 fL 80-98 MEAN CELL HGB (test code=MCH) 33.9 picogram 27.0-33.0 MEAN CELL HGB CONCETRATION (test code=MCHC) 34.5 gram/dL 33.0-36.0 RED CELL DISTRIBUTION WIDTH (test code=RDW) 15.5 % 11.6-16.2 RED CELL DISTRIBUTION WIDTH SD (test code=RDW-SD) 52.8 fL 37.0-51.0 PLATELET COUNT (test code=PLT) 181 K/mm3 150-450 MEAN PLATELET VOLUME (test code=MPV) 8.5 fL 6.7-11.0 NEUTROPHIL % (test code=NT%) 91.2 % 39.0-69.0 IMMATURE GRANULOCYTE % (test code=IG%) 0.5 % 0.0-5.0 LYMPHOCYTE % (test code=LY%) 6.0 % 25.0-55.0 MONOCYTE % (test code=MO%) 2.1 % 0.0-10.0 EOSINOPHIL % (test code=EO%) 0.0 % 0.0-5.0 BASOPHIL % (test code=BA%) 0.2 % 0.0-1.0 NUCLEATED RBC % (test code=NRBC%) 0.0 % 0-0 NEUTROPHIL # (test code=NT#) 5.60 K/mm3 1.8-7.7 IMMATURE GRANULOCYTE # (test code=IG#) 0.03 x10 3/uL 0-0.03 LYMPHOCYTE # (test code=LY#) 0.37 K/mm3 1.0-5.0 MONOCYTE # (test code=MO#) 0.13 K/mm3 0-0.8 EOSINOPHIL # (test code=EO#) 0.00 K/mm3 0.0-0.5 BASOPHIL # (test code=BA#) 0.01 K/mm3 0.0-0.2 NUCLEATED RBC # (test code=NRBC#) 0.00 K/mm3 0.0-0.1 MANUAL DIFF REQUIRED (test code=MDIFF) NO [id number] 04:56:00* Test Item Value Reference Range Comments GLUBED (test code=GLUBED) 205 mg/dL 74-106 Performed by certified dye reel operator helper at [facility] [id number] 21:09:00* Test Item Value Reference Range Comments GLUBED (test code=GLUBED) 115 mg/dL 74-106 Performed by certified dye reel operator helper at [facility]) [id number] 18:29:00* Test Item Value Reference Range Comments GLUBED (test code=GLUBED) 88 mg/dL 74-106 Performed by certified dye reel operator helper at [facility]) [id number] 13:11:00* Test Item Value Reference Range Comments GLUBED (test code=GLUBED) 62 mg/dL 74-106 Performed by certified dye reel operator helper at [facility]) [id number] 09:37:00* Test Item Value Reference Range Comments GLUBED (test code=GLUBED) 67 mg/dL 74-106 Performed by certified dye reel operator helper at [facility]) BASIC METABOLIC [id number] 06:18:00* Test Item Value Reference Range Comments SODIUM (test code=NA) 133 mmol/L 136-145 RESULT VERIFIED BY REPEAT ANALYSIS POTASSIUM (test code=K) 3.2 mmol/L 3.5-5.1 CHLORIDE (test code=CL) 98.0 mmol/L 98-107 CARBON DIOXIDE (test code=CO2) 22.0 mmol/L 21-32 ANION GAP (test code=GAP) 16.2 10-20 GLUCOSE (test code=GLU) 75 mg/dL 74-106 BLOOD UREA NITROGEN (test code=BUN) 14 mg/dL 7-18 GLOMERULAR FILTRATION RATE (test code=GFR) > 60 mL/min >=60 Estimated GFR by using Modified MDRD formula.Chronic kidney disease is defined as either kidney damageor GFR <60 mL/min/1.73 m2 for >3 months. CREATININE (test code=CREAT) 0.60 mg/dL 0.55-1.02 Note change in reference range due to change in reagent. BUN/CREATININE RATIO (test code=BUN/CREA) 23.3 10-20 CALCIUM (test code=CA) 8.0 mg/dL 8.5-10.1 VITAMIN [id number] 06:18:00* Test Item Value Reference Range Comments VITAMIN B12 (test code=VITB12) 1270 pg/mL 193-986 BASIC METABOLIC [id number] 05:34:00* Test Item Value Reference Range Comments SODIUM (test code=NA) 133 mmol/L 136-145 RESULT VERIFIED BY REPEAT ANALYSIS POTASSIUM (test code=K) 3.2 mmol/L 3.5-5.1 CHLORIDE (test code=CL) 98.0 mmol/L 98-107 CARBON DIOXIDE (test code=CO2) mmol/L 21-32 ANION GAP (test code=GAP) 10-20 GLUCOSE (test code=GLU) mg/dL 74-106 BLOOD UREA NITROGEN (test code=BUN) mg/dL 7-18 GLOMERULAR FILTRATION RATE (test code=GFR) mL/min >=60 CREATININE (test code=CREAT) mg/dL 0.55-1.02 BUN/CREATININE RATIO (test code=BUN/CREA) 10-20 CALCIUM (test code=CA) mg/dL 8.5-10.1 VITAMIN [id number] 05:34:00* Test Item Value Reference Range Comments VITAMIN B12 (test code=VITB12) pg/mL 193-986 [id number] 05:17:00* Test Item Value Reference Range Comments GLUBED (test code=GLUBED) 75 mg/dL 74-106 Performed by certified dye reel operator helper at [facility] (Former[facility]) PROTHROMBIN [id number] 05:05:00* Test Item Value Reference Range Comments PROTHROMBIN TIME PATIENT (test code=PTP) 15.1 seconds 9.0-14.0 INTERNATIONAL NORMAL RATIO (test code=INR) 1.3 0.8-1.2 The therapeutic range for oral anticoagulant therapy formost indications is an international normalized ratio (INR)of between 2.0 and 3.0. The recommended therapeutic INRrange for various clinical situations is listed below: Clinical Situation INR range Pulmonary e mbolism treatment (2.0-3.0)Venous thrombosis treatmentVenous thrombosis prophylaxis (high risk surgery)Prevention of systemic embolism from: Acute myocardial infarction Valvular heart disease Atrial fibrillation Mechanical prosthetic heart valves (2.5-3.5) IS PATIENT ON ANTICOAGULANTS? NTHROMBOPLASTIN TIME [id number] 05:05:00* Test Item Value Reference Range Comments THROMBOPLASTIN TIME PARTIAL (test code=PTT) 28.9 seconds 25.0-36.5 IS PATIENT ON ANTICOAGULANTS? NCBC W/AUTO [id number] 04:58:00* Test Item Value Reference Range Comments WHITE BLOOD CELL (test code=WBC) 10.4 K/mm3 4.5-12.5 RED BLOOD CELL (test code=RBC) 2.73 mill/mm3 3.7-5.2 HEMOGLOBIN (test code=HGB) 9.8 gram/dL 11.5-15.5 HEMATOCRIT (test code=HCT) 27.8 % 36.0-46.0 MEAN CELL VOLUME (test code=MCV) 101.8 fL 80-98 MEAN CELL HGB (test code=MCH) 35.9 picogram 27.0-33.0 MEAN CELL HGB CONCETRATION (test code=MCHC) 35.3 gram/dL 33.0-36.0 RED CELL DISTRIBUTION WIDTH (test code=RDW) 16.5 % 11.6-16.2 RED CELL DISTRIBUTION WIDTH SD (test code=RDW-SD) 55.3 fL 37.0-51.0 PLATELET COUNT (test code=PLT) 194 K/mm3 150-450 MEAN PLATELET VOLUME (test code=MPV) 8.4 fL 6.7-11.0 NEUTROPHIL % (test code=NT%) 81.9 % 39.0-69.0 IMMATURE GRANULOCYTE % (test code=IG%) 0.2 % 0.0-5.0 LYMPHOCYTE % (test code=LY%) 10.3 % 25.0-55.0 MONOCYTE % (test code=MO%) 6.1 % 0.0-10.0 EOSINOPHIL % (test code=EO%) 1.2 % 0.0-5.0 BASOPHIL % (test code=BA%) 0.3 % 0.0-1.0 NUCLEATED RBC % (test code=NRBC%) 0.0 % 0-0 NEUTROPHIL # (test code=NT#) 8.50 K/mm3 1.8-7.7 IMMATURE GRANULOCYTE # (test code=IG#) 0.02 x10 3/uL 0-0.03 LYMPHOCYTE # (test code=LY#) 1.07 K/mm3 1.0-5.0 MONOCYTE # (test code=MO#) 0.63 K/mm3 0-0.8 EOSINOPHIL # (test code=EO#) 0.12 K/mm3 0.0-0.5 BASOPHIL # (test code=BA#) 0.03 K/mm3 0.0-0.2 NUCLEATED RBC # (test code=NRBC#) 0.00 K/mm3 0.0-0.1 [id number] 21:21:00* Test Item Value Reference Range Comments GLUBED (test code=GLUBED) 108 mg/dL 74-106 Performed by certified dye reel operator helper at [facility] ([facility]) - XR CHEST 1 [id number] 14:59:00 FAX: Adam Manzano MD [phone] Pace: St: [facility] FAX: Nigel Kennedy MD [phone] Name: ANA CRISTINA FLANNERY [facility] : 1935 Age/S: 83/F [address] [facility] Unit #: [id number] Loc: V.2080 [place] [address] Phys: Nigel Larkin MD Acct: [id number] Dis Date: Status: ADM IN PHONE #: [phone] Exam Date: 09/24/2018 1425 FAX #: [phone] Reason: CHF EXAMS: CPT CODE: [id number] XR CHEST 1 V 61286 TECHNIQUE - XR CHEST 1 V . COMPARISON: Chest x-ray 09/21/2018 HISTORY: 83 years Female CHF FINDINGS: Right upper lung field is obscured by the patient's arm. Of the visualized lung boyle there is no pneumothorax, no congestion. Cardiac silhouette is normal. IMPRESSION: Right upper lung field is obscured by the patient's arm. Of the visualized lung boyle there is no pneumothorax, no congestion. at 3367 Reported and signed by: Pee Manzano M.D. CC: Adam Wood MD; Nigel Larkin MD Technologist: CYNTHIA BOB(R) Trnscrd Date/Time/By: 09/24/2018 (1459) : By: SilverIRENE Orig Print D/T: S: 09/24/2018 (9153) PAGE 1 Signed Report CBC W/AUTO [id number] 08:27:00* Test Item Value Reference Range Comments WHITE BLOOD CELL (test code=WBC) 5.5 K/mm3 4.5-12.5 RED BLOOD CELL (test code=RBC) 2.71 mill/mm3 3.7-5.2 HEMOGLOBIN (test code=HGB) 9.4 gram/dL 11.5-15.5 HEMATOCRIT (test code=HCT) 26.7 % 36.0-46.0 MEAN CELL VOLUME (test code=MCV) 98.5 fL 80-98 MEAN CELL HGB (test code=MCH) 34.7 picogram 27.0-33.0 MEAN CELL HGB CONCETRATION (test code=MCHC) 35.2 gram/dL 33.0-36.0 RED CELL DISTRIBUTION WIDTH (test code=RDW) 15.9 % 11.6-16.2 RED CELL DISTRIBUTION WIDTH SD (test code=RDW-SD) 54.8 fL 37.0-51.0 PLATELET COUNT (test code=PLT) 168 K/mm3 150-450 MEAN PLATELET VOLUME (test code=MPV) 8.6 fL 6.7-11.0 NEUTROPHIL % (test code=NT%) 65.4 % 39.0-69.0 IMMATURE GRANULOCYTE % (test code=IG%) 0.5 % 0.0-5.0 LYMPHOCYTE % (test code=LY%) 20.0 % 25.0-55.0 MONOCYTE % (test code=MO%) 8.4 % 0.0-10.0 EOSINOPHIL % (test code=EO%) 5.3 % 0.0-5.0 BASOPHIL % (test code=BA%) 0.4 % 0.0-1.0 NUCLEATED RBC % (test code=NRBC%) 0.0 % 0-0 NEUTROPHIL # (test code=NT#) 3.57 K/mm3 1.8-7.7 IMMATURE GRANULOCYTE # (test code=IG#) 0.03 x10 3/uL 0-0.03 LYMPHOCYTE # (test code=LY#) 1.09 K/mm3 1.0-5.0 MONOCYTE # (test code=MO#) 0.46 K/mm3 0-0.8 EOSINOPHIL # (test code=EO#) 0.29 K/mm3 0.0-0.5 BASOPHIL # (test code=BA#) 0.02 K/mm3 0.0-0.2 NUCLEATED RBC # (test code=NRBC#) 0.00 K/mm3 0.0-0.1 MANUAL DIFF REQUIRED (test code=MDIFF) NO [id number] 08:08:00* Test Item Value Reference Range Comments GLUBED (test code=GLUBED) 103 mg/dL 74-106 Performed by certified dye reel operator helper at [facility]) [id number] 08:08:00* Test Item Value Reference Range Comments GLUBED (test code=GLUBED) 86 mg/dL 74-106 Performed by certified dye reel operator helper at [facility]) COMPREHENSIVE METABOLIC [id number] 06:07:00* Test Item Value Reference Range Comments SODIUM (test code=NA) 124 mmol/L 136-145 Results called to MILES IBANEZ by [email or web address] 09/24/18 0606Critical results verified and read back by Nurse? Y POTASSIUM (test code=K) 4.3 mmol/L 3.5-5.1 CHLORIDE (test code=CL) 100.0 mmol/L 98-107 CARBON DIOXIDE (test code=CO2) 17.0 mmol/L 21-32 ANION GAP (test code=GAP) 11.3 10-20 GLUCOSE (test code=GLU) 100 mg/dL 74-106 BLOOD UREA NITROGEN (test code=BUN) 10 mg/dL 7-18 GLOMERULAR FILTRATION RATE (test code=GFR) > 60 mL/min >=60 Estimated GFR by using Modified MDRD formula.Chronic kidney disease is defined as either kidney damageor GFR <60 mL/min/1.73 m2 for >3 months. CREATININE (test code=CREAT) 0.50 mg/dL 0.55-1.02 Note change in reference range due to change in reagent. BUN/CREATININE RATIO (test code=BUN/CREA) 20.0 10-20 TOTAL PROTEIN (test code=PROT) 5.6 gram/dL 6.4-8.2 ALBUMIN (test code=ALB) 1.5 g/dL 3.4-5.0 GLOBULIN (test code=GLOB) 4.1 gram/dL 2.7-4.2 ALBUMIN/GLOBULIN RATIO (test code=A/G) 0.4 0.75-1.50 CALCIUM (test code=CA) 7.7 mg/dL 8.5-10.1 BILIRUBIN TOTAL (test code=BILT) 0.60 mg/dL 0.0-1.0 SGOT/AST (test code=AST) 33 IUnit/L 15-37 SGPT/ALT (test code=ALT) 18 IUnit/L 12-78 ALKALINE PHOSPHATASE TOTAL (test code=ALKP) 110 IUnit/L 45-117 Note change in reference range due to change in reagent. [id number] 06:05:00* Test Item Value Reference Range Comments GLUBED (test code=GLUBED) 100 mg/dL 74-106 Performed by certified dye reel operator helper at [facility]) [id number] 22:21:00* Test Item Value Reference Range Comments GLUBED (test code=GLUBED) 106 mg/dL 74-106 Performed by certified dye reel operator helper at [facility]) [id number] 17:53:00* Test Item Value Reference Range Comments GLUBED (test code=GLUBED) 106 mg/dL 74-106 Performed by certified dye reel operator helper at [facility]) [id number] 12:52:00* Test Item Value Reference Range Comments GLUBED (test code=GLUBED) 99 mg/dL 74-106 Performed by certified dye reel operator helper at [facility]) CBC W/AUTO [id number] 08:12:00* Test Item Value Reference Range Comments WHITE BLOOD CELL (test code=WBC) 7.7 K/mm3 4.5-12.5 RED BLOOD CELL (test code=RBC) 2.85 mill/mm3 3.7-5.2 HEMOGLOBIN (test code=HGB) 9.8 gram/dL 11.5-15.5 HEMATOCRIT (test code=HCT) 28.0 % 36.0-46.0 MEAN CELL VOLUME (test code=MCV) 98.2 fL 80-98 MEAN CELL HGB (test code=MCH) 34.4 picogram 27.0-33.0 MEAN CELL HGB CONCETRATION (test code=MCHC) 35.0 gram/dL 33.0-36.0 RED CELL DISTRIBUTION WIDTH (test code=RDW) 16.4 % 11.6-16.2 RED CELL DISTRIBUTION WIDTH SD (test code=RDW-SD) 54.2 fL 37.0-51.0 PLATELET COUNT (test code=PLT) 216 K/mm3 150-450 MEAN PLATELET VOLUME (test code=MPV) 8.9 fL 6.7-11.0 NEUTROPHIL % (test code=NT%) 75.8 % 39.0-69.0 IMMATURE GRANULOCYTE % (test code=IG%) 0.3 % 0.0-5.0 LYMPHOCYTE % (test code=LY%) 15.1 % 25.0-55.0 MONOCYTE % (test code=MO%) 7.2 % 0.0-10.0 EOSINOPHIL % (test code=EO%) 1.3 % 0.0-5.0 BASOPHIL % (test code=BA%) 0.3 % 0.0-1.0 NUCLEATED RBC % (test code=NRBC%) 0.0 % 0-0 NEUTROPHIL # (test code=NT#) 5.84 K/mm3 1.8-7.7 IMMATURE GRANULOCYTE # (test code=IG#) 0.02 x10 3/uL 0-0.03 LYMPHOCYTE # (test code=LY#) 1.16 K/mm3 1.0-5.0 MONOCYTE # (test code=MO#) 0.55 K/mm3 0-0.8 EOSINOPHIL # (test code=EO#) 0.10 K/mm3 0.0-0.5 BASOPHIL # (test code=BA#) 0.02 K/mm3 0.0-0.2 NUCLEATED RBC # (test code=NRBC#) 0.00 K/mm3 0.0-0.1 MANUAL DIFF REQUIRED (test code=MDIFF) NO COMPREHENSIVE METABOLIC [id number] 07:51:00* Test Item Value Reference Range Comments SODIUM (test code=NA) 130 mmol/L 136-145 POTASSIUM (test code=K) 4.5 mmol/L 3.5-5.1 CHLORIDE (test code=CL) 99.0 mmol/L 98-107 CARBON DIOXIDE (test code=CO2) 21.0 mmol/L 21-32 ANION GAP (test code=GAP) 14.5 10-20 GLUCOSE (test code=GLU) 86 mg/dL 74-106 BLOOD UREA NITROGEN (test code=BUN) 16 mg/dL 7-18 GLOMERULAR FILTRATION RATE (test code=GFR) > 60 mL/min >=60 Estimated GFR by using Modified MDRD formula.Chronic kidney disease is defined as either kidney damageor GFR <60 mL/min/1.73 m2 for >3 months. CREATININE (test code=CREAT) 0.50 mg/dL 0.55-1.02 Note change in reference range due to change in reagent. BUN/CREATININE RATIO (test code=BUN/CREA) 32.0 10-20 TOTAL PROTEIN (test code=PROT) 6.1 gram/dL 6.4-8.2 ALBUMIN (test code=ALB) 2.4 g/dL 3.4-5.0 GLOBULIN (test code=GLOB) 3.7 gram/dL 2.7-4.2 ALBUMIN/GLOBULIN RATIO (test code=A/G) 0.7 0.75-1.50 CALCIUM (test code=CA) 8.0 mg/dL 8.5-10.1 BILIRUBIN TOTAL (test code=BILT) 0.60 mg/dL 0.0-1.0 SGOT/AST (test code=AST) 20 IUnit/L 15-37 SGPT/ALT (test code=ALT) 19 IUnit/L 12-78 ALKALINE PHOSPHATASE TOTAL (test code=ALKP) 125 IUnit/L 45-117 Note change in reference range due to change in reagent. COMPREHENSIVE METABOLIC [id number] 07:45:00* Test Item Value Reference Range Comments SODIUM (test code=NA) 130 mmol/L 136-145 POTASSIUM (test code=K) 4.5 mmol/L 3.5-5.1 CHLORIDE (test code=CL) 99.0 mmol/L 98-107 CARBON DIOXIDE (test code=CO2) mmol/L 21-32 ANION GAP (test code=GAP) 10-20 GLUCOSE (test code=GLU) mg/dL 74-106 BLOOD UREA NITROGEN (test code=BUN) mg/dL 7-18 GLOMERULAR FILTRATION RATE (test code=GFR) mL/min >=60 CREATININE (test code=CREAT) mg/dL 0.55-1.02 BUN/CREATININE RATIO (test code=BUN/CREA) 10-20 TOTAL PROTEIN (test code=PROT) gram/dL 6.4-8.2 ALBUMIN (test code=ALB) g/dL 3.4-5.0 GLOBULIN (test code=GLOB) gram/dL 2.7-4.2 ALBUMIN/GLOBULIN RATIO (test code=A/G) 0.75-1.50 CALCIUM (test code=CA) mg/dL 8.5-10.1 BILIRUBIN TOTAL (test code=BILT) mg/dL 0.0-1.0 SGOT/AST (test code=AST) IUnit/L 15-37 SGPT/ALT (test code=ALT) IUnit/L 12-78 ALKALINE PHOSPHATASE TOTAL (test code=ALKP) IUnit/L 45-117 [id number] 07:37:00* Test Item Value Reference Range Comments GLUBED (test code=GLUBED) 95 mg/dL 74-106 Performed by certified dye reel operator helper at [facility]) - XR ABDOMEN AP 1 [id number] 16:19:00 FAX: Adam Manzano MD [phone] Pace: B St: ADM FAX: Annie Schwarz [phone] Name: ANA CRISTINA FLANNERY [facility] : 1935 Age/S: 83/F [address] [facility] Unit #: [id number] Loc: V.2077 [place] [address] Phys: Annie Gutierrez MD Acct: [id number] Dis Date: Status: ADM IN PHONE #: [phone] Exam Date: 09/22/2018 4484 FAX #: [phone] Reason: check peg placement, does not need gastrograffi EXAMS: CPT CODE: [id number] XR ABDOMEN AP 1 V 95794 HISTORY: Check PEG tube placement. COMPARISON: September 15, 2018. PEG tube tip overlaps with the right upper quadrant and appears unchanged in position. No bowel obstruction. Const ipation. No pathologic calcifications. DJD of the lumbar spine. Vascula r calcifications. IMPRESSION: PEG tube tip ove rlaps with the right upper quadrant and appears unchanged in position. at 3839 Reported and signed by: Barney Epperson M.D. CC: Adam Wood MD; Annie Gutierrez MD Technologist: SYED WEI, RT(R); BRAVO SANTIAGO RT(R) Trnscrd Date/Time/By: (321) : By: [email or web address] Orig Print D/T: S: 09/22/2018 (2854) PAGE 1 Signed Report [id number] 15:48:00* Test Item Value Reference Range Comments GLUBED (test code=GLUBED) 85 mg/dL 74-106 Performed by certified dye reel operator helper at [facility]) [id number] 11:42:00* Test Item Value Reference Range Comments GLUBED (test code=GLUBED) 77 mg/dL 74-106 Performed by certified dye reel operator helper at [facility]) COMPREHENSIVE METABOLIC [id number] 08:02:00* Test Item Value Reference Range Comments SODIUM (test code=NA) 133 mmol/L 136-145 POTASSIUM (test code=K) 4.6 mmol/L 3.5-5.1 CHLORIDE (test code=CL) 102.0 mmol/L 98-107 CARBON DIOXIDE (test code=CO2) 25.0 mmol/L 21-32 ANION GAP (test code=GAP) 10.6 10-20 GLUCOSE (test code=GLU) 90 mg/dL 74-106 BLOOD UREA NITROGEN (test code=BUN) 24 mg/dL 7-18 RESULT VERIFIED BY REPEAT ANALYSIS GLOMERULAR FILTRATION RATE (test code=GFR) > 60 mL/min >=60 Estimated GFR by using Modified MDRD formula.Chronic kidney disease is defined as either kidney damageor GFR <60 mL/min/1.73 m2 for >3 months. CREATININE (test code=CREAT) 0.50 mg/dL 0.55-1.02 Note change in reference range due to change in reagent. BUN/CREATININE RATIO (test code=BUN/CREA) 48.0 10-20 TOTAL PROTEIN (test code=PROT) 5.9 gram/dL 6.4-8.2 ALBUMIN (test code=ALB) 2.4 g/dL 3.4-5.0 GLOBULIN (test code=GLOB) 3.5 gram/dL 2.7-4.2 ALBUMIN/GLOBULIN RATIO (test code=A/G) 0.7 0.75-1.50 CALCIUM (test code=CA) 8.1 mg/dL 8.5-10.1 BILIRUBIN TOTAL (test code=BILT) 0.50 mg/dL 0.0-1.0 SGOT/AST (test code=AST) 14 IUnit/L 15-37 SGPT/ALT (test code=ALT) 22 IUnit/L 12-78 ALKALINE PHOSPHATASE TOTAL (test code=ALKP) 124 IUnit/L 45-117 Note change in reference range due to change in reagent. TSH REFLEX TO [id number] 08:02:00* Test Item Value Reference Range Comments TSH REFLEX TO FT4 (test code=TSHREFLEX) 0.3 0.4-5.5 B-TYPE NATRIURETIC [id number] 08:00:00* Test Item Value Reference Range Comments B-TYPE NATRIURETIC PEPTIDE (test code=BNP) 232.90 pgram/mL 0-100 COMPREHENSIVE METABOLIC [id number] 07:35:00* Test Item Value Reference Range Comments SODIUM (test code=NA) 133 mmol/L 136-145 POTASSIUM (test code=K) 4.6 mmol/L 3.5-5.1 CHLORIDE (test code=CL) 102.0 mmol/L 98-107 CARBON DIOXIDE (test code=CO2) mmol/L 21-32 ANION GAP (test code=GAP) 10-20 GLUCOSE (test code=GLU) mg/dL 74-106 BLOOD UREA NITROGEN (test code=BUN) mg/dL 7-18 GLOMERULAR FILTRATION RATE (test code=GFR) mL/min >=60 CREATININE (test code=CREAT) mg/dL 0.55-1.02 BUN/CREATININE RATIO (test code=BUN/CREA) 10-20 TOTAL PROTEIN (test code=PROT) gram/dL 6.4-8.2 ALBUMIN (test code=ALB) g/dL 3.4-5.0 GLOBULIN (test code=GLOB) gram/dL 2.7-4.2 ALBUMIN/GLOBULIN RATIO (test code=A/G) 0.75-1.50 CALCIUM (test code=CA) mg/dL 8.5-10.1 BILIRUBIN TOTAL (test code=BILT) mg/dL 0.0-1.0 SGOT/AST (test code=AST) IUnit/L 15-37 SGPT/ALT (test code=ALT) IUnit/L 12-78 ALKALINE PHOSPHATASE TOTAL (test code=ALKP) IUnit/L 45-117 TSH REFLEX TO [id number] 07:35:00* Test Item Value Reference Range Comments TSH REFLEX TO FT4 (test code=TSHREFLEX) 0.4-5.5 CBC W/AUTO [id number] 07:20:00* Test Item Value Reference Range Comments WHITE BLOOD CELL (test code=WBC) 5.4 K/mm3 4.5-12.5 RED BLOOD CELL (test code=RBC) 2.66 mill/mm3 3.7-5.2 HEMOGLOBIN (test code=HGB) 9.0 gram/dL 11.5-15.5 HEMATOCRIT (test code=HCT) 26.4 % 36.0-46.0 MEAN CELL VOLUME (test code=MCV) 99.2 fL 80-98 MEAN CELL HGB (test code=MCH) 33.8 picogram 27.0-33.0 MEAN CELL HGB CONCETRATION (test code=MCHC) 34.1 gram/dL 33.0-36.0 RED CELL DISTRIBUTION WIDTH (test code=RDW) 16.2 % 11.6-16.2 RED CELL DISTRIBUTION WIDTH SD (test code=RDW-SD) 56.5 fL 37.0-51.0 PLATELET COUNT (test code=PLT) 161 K/mm3 150-450 RESULT VERIFIED BY REPEAT ANALYSIS MEAN PLATELET VOLUME (test code=MPV) 8.6 fL 6.7-11.0 NEUTROPHIL % (test code=NT%) 64.1 % 39.0-69.0 IMMATURE GRANULOCYTE % (test code=IG%) 0.4 % 0.0-5.0 LYMPHOCYTE % (test code=LY%) 21.6 % 25.0-55.0 MONOCYTE % (test code=MO%) 7.4 % 0.0-10.0 EOSINOPHIL % (test code=EO%) 6.3 % 0.0-5.0 BASOPHIL % (test code=BA%) 0.2 % 0.0-1.0 NUCLEATED RBC % (test code=NRBC%) 0.0 % 0-0 NEUTROPHIL # (test code=NT#) 3.47 K/mm3 1.8-7.7 IMMATURE GRANULOCYTE # (test code=IG#) 0.02 x10 3/uL 0-0.03 LYMPHOCYTE # (test code=LY#) 1.17 K/mm3 1.0-5.0 MONOCYTE # (test code=MO#) 0.40 K/mm3 0-0.8 EOSINOPHIL # (test code=EO#) 0.34 K/mm3 0.0-0.5 BASOPHIL # (test code=BA#) 0.01 K/mm3 0.0-0.2 NUCLEATED RBC # (test code=NRBC#) 0.00 K/mm3 0.0-0.1 [id number] 06:21:00* Test Item Value Reference Range Comments GLUBED (test code=GLUBED) 94 mg/dL 74-106 Performed by certified dye reel operator helper at [facility] HGB [id number] 03:33:00* Test Item Value Reference Range Comments HEMOGLOBIN (test code=HGB) 9.4 gram/dL 11.5-15.5 HEMATOCRIT (test code=HCT) 27.5 % 36.0-46.0 HGB [id number] 21:17:00* Test Item Value Reference Range Comments HEMOGLOBIN (test code=HGB) 9.1 gram/dL 11.5-15.5 HEMATOCRIT (test code=HCT) 27.1 % 36.0-46.0 [id number] 20:44:00* Test Item Value Reference Range Comments GLUBED (test code=GLUBED) 90 mg/dL 74-106 Performed by certified dye reel operator helper at [facility] URINALYSIS [id number] 09:28:00* Test Item Value Reference Range Comments UA COLOR (test code=COLU) YELLOW YELLOW UA APPEARANCE (test code=APPU) TURBID CLEAR UA GLUCOSE DIPSTICK (test code=DGLUU) NEGATIVE mg/dL NEGATIVE UA BILIRUBIN DIPSTICK (test code=BILU) NEGATIVE mg/dL NEGATIVE UA KETONE DIPSTICK (test code=KETU) NEGATIVE mg/dL NEGATIVE UA SPECIFIC GRAVITY (test code=SGU) 1.021 1.001-1.035 UA BLOOD DIPSTICK (test code=TIERA) 0.2 mg/dL (2+) mg/dL NEGATIVE UA PH DIPSTICK (test code=YULISA) 7.0 5.0-8.0 UA PROTEIN DIPSTICK (test code=PROU) 100 (2+) mg/dL NEGATIVE UA UROBILINIOGEN DIPSTICK (test code=URO) 2.0 (1+) mg/dL NEGATIVE UA NITRITE DIPSTICK (test code=ESTELLE) NEGATIVE NEGATIVE UA LEUKOCYTE ESTERASE W REFLEX (test code=LEUUR) 500 Andrey/uL (3+) Andrey/uL NEGATIVE UA WBC (test code=WBCU) >200 per HPF 0-5 UA RBC (test code=RBCU) 101-150 #/HPF 0-5 UA WBC CLUMPS (test code=WBCUCL) >10 /HPF NONE UA EPITHELIAL CELLS (test code=EPIU) FEW per HPF FEW UA BACTERIA (test code=BACU) MANY #/HPF NONE UA TRANSITIONAL CELLS (test code=TRANU) 3-5 per HPF Few UA HYALINE CAST (test code=HYALU) 0-2 #/LPF 0-5 UA MUCUS (test code=MUCU) MANY #/LPF FEW UA AMORPHOUS SEDIMENT (test code=AMORU) FEW #/LPF NONE UA YEAST (test code=YEASTU) MODERATE #/HPF NONE Urine Source? Clean Catch- CT ABD PELVIS [id number] 09:26:00 Name: ANA CRISTINA FLANNERY [facility] : 1935 Age/S: 83 / F [address] Unit #: [id number] Loc: [place] [address] Phys: Cristobal Chew MD Acct: [id number] Di s Date: Status: ADM IN PHONE #: Exam Date: 09/21/2018 0845 FAX #: Reason: upper abd pain EXAMS: CPT CODE: [id number] CT ABD PELVIS W/CONT 11456 HISTORY: Upper abdominal pain and vomiting. COMPARISON: December 23, 2017. C T abdomen and pelvis with IV contrast: 100 mL of Isovue-370. Automated exp osure control. CT ABDOMEN: The lung bases demonstrat es small effusions and dependent changes. The liver is enhancing h omogeneously without parenchymal mass. Portal vein and hepatic artery are patent. Gallbladder is not seen. The liver is not enlarged. The spleen enhanced homogeneously and is not enlarged either. The stomach is distended incompletely with fluid with gastrostomy tube tip noted withi n the pyloric channel and duodenal junction. Pancreas is enhancing homogeneously with atrophy. Unremarkable adrenals. Kidneys are free from hydroureteronephrosis. Homogeneous enhancement. Punctate 1 t o 2 mm posterior right interpolar calyceal stone. Subcentimeter low-attenu ation lesion in the right anterior interpolar region is too small to mabel cterize. Excretion noted bilaterally. No pathologic adenopathy. At herosclerotic abdominal vasculature is well-opacified abdominal and pelvic vasculature. No bowel obstruction or colitis or diverticulitis or enteritis. CT PELVIS: Appendix is normal. Pelvic irving wel loops are unobstructed. Sigmoid diverticulosis is severe without diver ticulitis. Patient is post hysterectomy. Urinary bladder distended well with mild dependent wall thickening. Correlate for cystitis. No pelv ic pathologic adenopathy. No free fluid or free air. No pelvic pathologic adenopathy. Subcutaneous tissues and the musculature are nor mal in appearance. No lytic or blastic lesions are noted within the bony s [place]. Osteoporosis. DJD. Narrowed hip joints. PAGE 1 Signed Report (CONTINUED) Name: ANA CRISTINA FLANNERY [facility] : 1935 Age/S: 83 / F [address] [facility] Unit #: [id number] [place] [address] Phys: Van Chew MD Acct: [id number] Dis Date: Status: ADM IN PHONE #: [phone] Exam Date: 09/21/2018 0845 FAX #: [phone] Reason: upper abd pain EXAMS: CPT CODE: [id number] CT ABD PELVIS W/CONT 91264 <Continued> IMPRESSION: Gastrostomy tube tip within the pyloric and duodenal bulb junction. Mild distention of the stomach with fluid. This could result in obstruction of the stomach. No bowel obstruction. Severe sigmoid diverticulosis without diverticulitis. Normal appendix. No free fluid or free air or abscess. No hydroureteronephrosis either. at 0926 Reported and signed by: Banrey Epperson M.D. CC: Van Chew MD Technologist:Varun Stover RT(R),(MR),(CT); CTDI: DLP: Trnscb Date/Time: 09/21/2018 (925) t.SDR.[email or web address] Orig Print D/T: S: 09/21/2018 (928) PAGE 2 Signed Report - CT HEAD/BRAIN W/O [id number] 09:17:00 Name: ANA CRISTINA FLANNERY [facility] : 1935 Age/S: 83 / F [address] [facility] Unit #: [id number] Loc: [place] [address] Phys: Cristobal Chew MD Acct: [id number] Di s Date: Status: ADM IN PHONE #: Exam Date: 09/21/2018844 FAX #: [phone] Reason: vomiting EXAMS: CPT CODE: [id number] CT HEAD/BRAIN W/O CONT 91891 HISTORY: Vomiting. COMPARISON: November 19, 2014. CT brain without contrast: tomated exposure control. Note: Motion limited study. No acute intracranial bleeds or extra-axial collections are noted. No ac [place] territorial vascular infarction is noted. Moderate ventriculomegaly is unchanged from 2015. The sulci, gyri, ventricles and subarachnoid spaces and the basilar cisterns are normal for patient's age. No herniati on or hydrocephalus or midline shift is noted. Mild perivent ricular ischemic gliosis is noted. Age-appropriate atrophy is noted as wel l. Portions of the visualized paranasal sinuses are normal. No obvious bony calvarial defect is noted. IMPRESSION: No acute intracranial bleeds or extra-axial collections. No acute territorial vascular infarction. Stable moderate ve ntriculomegaly from 2014. No herniation or hydrocephalus or mi dline shift. Chronic white matter ischemic disease and atroph y . Electronically Signed by Guanaco lopez 09/21/2018 at 0917 Reported and signed by: Barney arreola M.D. PAGE 1 Signed Report (CONTINUED) Name: ANA CRISTINA FLANNERY [facility] : 1935 Age/S: 83 / F [address] Unit #: [id number] Loc: [place] [address] Phy s: Van Chew MD Acct: [id number] Dis Date: Status: ADM IN PHONE #: [phone] Exam Date: 09/21/2018 0845 FAX #: [phone] Reason: vomiting EXAMS: CPT CODE: [id number] CT HEAD/BRAIN W/O CONT [id number] <Continued> CC: Van Chew MD Technologist:Varun Stover RT(R),(MR),(CT); CTDI: DLP: Trnscb Date/Time: 09/21/2018 (916) [email or web address] Orig Print D/T: S: 09/21/2018 (920) PAGE 2 Signed Report URINALYSIS [id number] 09:06:00* Test Item Value Reference Range Comments UA COLOR (test code=COLU) YELLOW YELLOW UA APPEARANCE (test code=APPU) TURBID CLEAR UA GLUCOSE DIPSTICK (test code=DGLUU) NEGATIVE mg/dL NEGATIVE UA BILIRUBIN DIPSTICK (test code=BILU) NEGATIVE mg/dL NEGATIVE UA KETONE DIPSTICK (test code=KETU) NEGATIVE mg/dL NEGATIVE UA SPECIFIC GRAVITY (test code=SGU) 1.021 1.001-1.035 UA BLOOD DIPSTICK (test code=TIERA) 0.2 mg/dL (2+) mg/dL NEGATIVE UA PH DIPSTICK (test code=YULISA) 7.0 5.0-8.0 UA PROTEIN DIPSTICK (test code=PROU) 100 (2+) mg/dL NEGATIVE UA UROBILINIOGEN DIPSTICK (test code=URO) 2.0 (1+) mg/dL NEGATIVE UA NITRITE DIPSTICK (test code=ESTELLE) NEGATIVE NEGATIVE UA LEUKOCYTE ESTERASE W REFLEX (test code=LEUUR) 500 Andrey/uL (3+) Andrey/uL NEGATIVE UA WBC (test code=WBCU) per HPF 0-5 UA RBC (test code=RBCU) per HPF 0-5 UA EPITHELIAL CELLS (test code=EPIU) per HPF Few UA BACTERIA (test code=BACU) per HPF NONE Urine Source? Clean CatchPROTHROMBIN [id number] 08:22:00* Test Item Value Reference Range Comments PROTHROMBIN TIME PATIENT (test code=PTP) 13.1 seconds 9.0-14.0 INTERNATIONAL NORMAL RATIO (test code=INR) 1.1 0.8-1.2 The therapeutic range for oral anticoagulant therapy formost indications is an international normalized ratio (INR)of between 2.0 and 3.0. The recommended therapeutic INRrange for various clinical situations is listed below: Clinical Situation INR range Pulmonary e mbolism treatment (2.0-3.0)Venous thrombosis treatmentVenous thrombosis prophylaxis (high risk surgery)Prevention of systemic embolism from: Acute myocardial infarction Valvular heart disease Atrial fibrillation Mechanical prosthetic heart valves (2.5-3.5) IS PATIENT ON ANTICOAGULANTS? NTHROMBOPLASTIN TIME [id number] 08:22:00* Test Item Value Reference Range Comments THROMBOPLASTIN TIME PARTIAL (test code=PTT) 29.8 seconds 25.0-36.5 IS PATIENT ON ANTICOAGULANTS? NCBC W/O [id number] 08:17:00* Test Item Value Reference Range Comments WHITE BLOOD CELL (test code=WBC) 13.3 K/mm3 4.5-12.5 RED BLOOD CELL (test code=RBC) 3.16 mill/mm3 3.7-5.2 HEMOGLOBIN (test code=HGB) 11.0 gram/dL 11.5-15.5 HEMATOCRIT (test code=HCT) 32.2 % 36.0-46.0 MEAN CELL VOLUME (test code=MCV) 101.9 fL 80-98 MEAN CELL HGB (test code=MCH) 34.8 picogram 27.0-33.0 MEAN CELL HGB CONCETRATION (test code=MCHC) 34.2 gram/dL 33.0-36.0 RED CELL DISTRIBUTION WIDTH (test code=RDW) 17.5 % 11.6-16.2 PLATELET COUNT (test code=PLT) 233 K/mm3 150-450 MEAN PLATELET VOLUME (test code=MPV) 8.7 fL 6.7-11.0 BASIC METABOLIC [id number] 08:15:00* Test Item Value Reference Range Comments SODIUM (test code=NA) 135 mmol/L 136-145 POTASSIUM (test code=K) 4.6 mmol/L 3.5-5.1 CHLORIDE (test code=CL) 101.0 mmol/L 98-107 CARBON DIOXIDE (test code=CO2) 29.0 mmol/L 21-32 ANION GAP (test code=GAP) 9.6 10-20 GLUCOSE (test code=GLU) 119 mg/dL 74-106 BLOOD UREA NITROGEN (test code=BUN) 34 mg/dL 7-18 GLOMERULAR FILTRATION RATE (test code=GFR) > 60 mL/min >=60 Estimated GFR by using Modified MDRD formula.Chronic kidney disease is defined as either kidney damageor GFR <60 mL/min/1.73 m2 for >3 months. CREATININE (test code=CREAT) 0.60 mg/dL 0.55-1.02 Note change in reference range due to change in reagent. BUN/CREATININE RATIO (test code=BUN/CREA) 56.7 10-20 CALCIUM (test code=CA) 8.7 mg/dL 8.5-10.1 HEPATIC FUNCTION [id number] 08:15:00* Test Item Value Reference Range Comments TOTAL PROTEIN (test code=PROT) 6.8 gram/dL 6.4-8.2 ALBUMIN (test code=ALB) 2.8 g/dL 3.4-5.0 GLOBULIN (test code=GLOB) 4.0 gram/dL 2.7-4.2 ALBUMIN/GLOBULIN RATIO (test code=A/G) 0.7 0.75-1.50 BILIRUBIN TOTAL (test code=BILT) 0.40 mg/dL 0.0-1.0 BILIRUBIN DIRECT (test code=BILD) 0.15 mg/dL 0.0-0.20 SGOT/AST (test code=AST) 22 IUnit/L 15-37 SGPT/ALT (test code=ALT) 30 IUnit/L 12-78 ALKALINE PHOSPHATASE TOTAL (test code=ALKP) 144 IUnit/L 45-117 Note change in reference range due to change in reagent. [id number] 08:15:00* Test Item Value Reference Range Comments LIPASE (test code=LIP) 74 U/L 73.0-393.0 [id number] 08:15:00* Test Item Value Reference Range Comments TROPONIN-I (test code=TROPI) <0.015 ng/mL 0-0.045 BASIC METABOLIC [id number] 08:12:00* Test Item Value Reference Range Comments SODIUM (test code=NA) 135 mmol/L 136-145 POTASSIUM (test code=K) 4.6 mmol/L 3.5-5.1 CHLORIDE (test code=CL) 101.0 mmol/L 98-107 CARBON DIOXIDE (test code=CO2) mmol/L 21-32 ANION GAP (test code=GAP) 10-20 GLUCOSE (test code=GLU) mg/dL 74-106 BLOOD UREA NITROGEN (test code=BUN) mg/dL 7-18 GLOMERULAR FILTRATION RATE (test code=GFR) mL/min >=60 CREATININE (test code=CREAT) mg/dL 0.55-1.02 BUN/CREATININE RATIO (test code=BUN/CREA) 10-20 CALCIUM (test code=CA) mg/dL 8.5-10.1 HEPATIC FUNCTION [id number] 08:12:00* Test Item Value Reference Range Comments TOTAL PROTEIN (test code=PROT) gram/dL 6.4-8.2 ALBUMIN (test code=ALB) g/dL 3.4-5.0 GLOBULIN (test code=GLOB) gram/dL 2.7-4.2 ALBUMIN/GLOBULIN RATIO (test code=A/G) 0.75-1.50 BILIRUBIN TOTAL (test code=BILT) mg/dL 0.0-1.0 BILIRUBIN DIRECT (test code=BILD) mg/dL 0.0-0.20 SGOT/AST (test code=AST) IUnit/L 15-37 SGPT/ALT (test code=ALT) IUnit/L 12-78 ALKALINE PHOSPHATASE TOTAL (test code=ALKP) IUnit/L 45-117 [id number] 08:12:00* Test Item Value Reference Range Comments LIPASE (test code=LIP) U/L 73.0-393.0 [id number] 08:12:00* Test Item Value Reference Range Comments TROPONIN-I (test code=TROPI) ng/mL 0-0.045 - XR CHEST 1 [id number] 07:52:00 FAX: Van Chew MD [phone] Pace: B St: REG Name: ANA CRISTINA NAPOLES [facility] : 08/08/18 35 Age/S: 83/F [address] [facility] Unit #: [id number] Loc: [place] [address] Phys: Van Chew MD Acct: [id number] Dis Date: Status: REG ER PHONE #: [phone] Exam Date: 09/21/2018 075 FAX #: [phone] Reason: cough EXAMS: CPT CODE: [id number] XR CHEST 1 V 58088 HISTORY: cough TECHN IQUE: AP chest x-ray COMPARISON: 12/24/79 FINDINGS: No airspace consolidation or pleural effusion. Mild pulmonary scarring. Normal heart size. Atherosclerotic vascular calcification of the thoracic aorta. Degenerative changes of the spine and shoulders. IMPRESSION: No acute findings or significant interval change. at 0752 Reported and signed by: Margaret Perdue D.O. CC: Van Chew MD Technologist: KATE HUERTAR) Lamar Date/Time/By: 09/21 (0750) : By: [email or web address] Orig Print D/T: S: 09/21/2018 (9398) PAGE 1 Signed Report - CONT INJ GS/ DU/ JJ/ [id number] 22:17:00 FAX: Van Chew MD [phone] Pace: St: REG Name: ANA CRISTINA NAPOLES [facility] : 08/08/18 35 Age/S: 83/F [address] [facility] Unit #: [id number] Loc: [place] [address] Phys: Van Chew MD Acct: [id number] Dis Date: Status: REG ER PHONE #: [phone] Exam Date: 09/15/20182156 FAX #: [phone] Reason: G tube placement EXAMS: CPT CODE: [id number] CONT INJ GS/ DU/ JJ/ GG [address] HISTORY: G tube placement TECHNIQUE: AP abdomen x-ray before and after contrast administration via PEG tube. COMPARISON: 04/28/18 FINDINGS: Admi nistered oral contrast opacifies the duodenum and proximal jejunum. PEG tu be positioned within the duodenal bulb. No contrast extravasation. Nonspec ific nonobstructed bowel gas pattern. No intra-abdominal mass effect. No a bnormal calcifications are observed. Degenerative changes of the spine and hips. IMPRESSION: PEG tube positioned within the duodenal bulb. Electronically Signed by Margaret Perdue D.O. on 11/2018 at 3695 Reported and signed by: Margaret Perdue D.O. CC: Van Chew MD Technologist: KATE YANEZR) Trntommy [place] ate/Time/By: 09/15/2018 (3419) : By: [email or web address] Orig Print D/T: S: 11/2018 (7467) PAGE 1 Signed Repor t - CONT INJ GS/ DU/ JJ/ [id number] 17:02:00 FAX: BASSEM NOVOA MD Pace: St: REG Name: ANA CRISTINA NAPOLES [facility] : 08/08/18 35 Age/S: 82/F [address] [facility] Unit #: [id number] Loc: [place] [address] Phys: BASSEM NOVOA MD Acct: [id number] Dis Date: Status: REG ER PHONE #: [phone] Exam Date: 04/28/2018 1640 FAX #: [phone] Reason: PEG TUBE PLACEMENT EXAMS: CPT CODE: [id number] CONT INJ GS/ DU/ JJ/ GG [id number] HISTORY: feeding tube replacement TECHNIQUE: AP abdomen x-ray before and after contrast administration via PEG tube. COMPARISON: 12/12/17 FINDINGS: Diminishing oral contrast opacifies the stomach and proximal duodenum. PEG tube positioned within the gastric antrum. No contrast extravasation. Nonspecific nonobstructed bowel gas pattern. No intra-abdominal mass effec t. No abnormal calcifications are observed. Degenerative changes of the sp ine and hips. IMPRESSION: A tube positioned within the gastric antrum. Electronically Signed by Margaret lopez 04/28/2018 at 1702 Reported and signed by: Margaret Zaidi CC: BASSEM NOVOA MD Technologist: RT BEAU(Charline) Rogelio alvarado Date/Time/By: 04/28/2018 (0681) : By: [email or web address] Orig Print D/T: S: 04/28/2018 (7547) PAGE 1 Signed Report - XR ABDOMEN AP 1 [id number] 17:02:00 FAX: BASSEM NOVOA MD Pace: St: REG Name: ANA CRISTINA NAPOLES [facility] : [birth year]08[birth year] 34 Age/S: 82/F [address] [facility] Unit #: [id number] Loc: [place] [address] Phys: BASSEM NOVOA MD Acct: [id number] Dis Date: Status: REG ER PHONE #: [phone] Exam Date: 04/28/2018 1635 FAX #: [phone] Reason: feeding tube replacemt EXAMS: CPT CODE: [id number] XR ABDOMEN AP 1 V 79879 HISTORY: feeding tube replacement TECHNIQUE: AP abdomen x-ray before and after contrast administration via PEG tube. COMPARISON: 12/12/17 FINDINGS: Diminishing oral contrast opacifies the stomach and proximal duodenum. PEG tube positioned within the gastric antrum. No contrast extravasation. Nonspecific nonobstructed bowel gas pattern. No intra-abdominal mass effec t. No abnormal calcifications are observed. Degenerative changes of the sp ine and hips. IMPRESSION: A tube positioned within the gastric antrum. Electronically Signed by Margaret lopez 04/28/2018 at 1702 Reported and signed by: Margaret Zaidi CC: BASSEM NOVOA MD Technologist: CYNTHIA BOB(Charline) Trns crd Date/Time/By: 04/28/2018 (4801) : By: [email or web address] Orig Print D/T: S: 04/28/2018 (0912) PAGE 1 Signed Report
[2019-02-13] MEDS ORDERED: ONDANSETRON HCL INJ 2MG/ML 2ML 2 MG/ML VIAL IV PRN (23:30)
[2019-02-13] MEDS: AZITHROMYCIN 500MG/NS 250 ML 250 ML IV SCH (23:50)
[2019-02-14] VITALS (8 sets, daily range): BP systolic 64–120; BP diastolic 45–72
[2019-02-14] MEDS: VANCOMYCIN 1GM/NS 250 ML 250 ML IV SCH ×2 (02:22→23:15)
[2019-02-14] MEDS: SODIUM CHLORIDE 0.45% 1,000 ML IV SCH ×2 (02:30→17:15)
[2019-02-14 04:29] LABS: CREATINE KINASE MB 4.2 ng/mL (0-5.0)
[2019-02-14 05:27] LABS: BASOPHILS % 0.3 % (0.0-1.0); EOSINOPHILS # (AUTO) 0.1 (0.0-0.4); EOSINOPHILS % 1.8 % (0.0-6.0); LYMPHOCYTES # (AUTO) 1.4 (1.0-3.2); LYMPHOCYTES % 19.6 % (18.0-39.1); MEAN CORPUSCULAR HEMOGLOBIN 38.3 pg (28-32); MEAN CORPUSCULAR HGB CONC 33.3 g/dL (31-35); MEAN CORPUSCULAR VOLUME 114.9 fL (81-99); MONOCYTES # (AUTO) 0.3 (0.2-0.8); MONOCYTES % 4.7 % (4.4-11.3); NEUTROPHILS # (AUTO) 5.3 (2.1-6.9); NEUTROPHILS % 73.1 % (38.7-80.0); PLATELET COUNT 133 x10e3/uL (140-360); RED BLOOD COUNT 2.61 x10e6/uL (3.6-5.1); RED CELL DISTRIBUTION WIDTH 17.9 % (11.7-14.4)
[2019-02-14 05:46] LABS: ALBUMIN 2.2 g/dL (3.5-5.0); ALBUMIN/GLOBULIN RATIO 0.6 (0.8-2.0); ANION GAP 12.3 mmol/L (8-16); CALCIUM 7.4 mg/dL (8.4-10.2); CREATININE, SERUM 0.9 mg/dL (0.57-1.11); POTASSIUM 3.3 mmol/L (3.5-5.1)
[2019-02-14] MEDS: CEFEPIME 2 GM/NS 0.9% 100 ML 100 ML IV SCH ×2 (08:31→21:58)
[2019-02-14] MEDS ORDERED: POTASSIUM CHLORIDE 20MEQ/100ML 100 ML IV ONE (09:30)
[2019-02-14] MEDS ORDERED: POTASSIUM CHLORIDE 20MEQ/15ML UDC PEG ONE (09:40)
[2019-02-14 12:28] LABS: CREATINE KINASE MB 5.3 ng/mL (0-5.0)
[2019-02-14] MEDS ORDERED: ACETYLCYSTEINE 20% INHAL SOLN 30 ML VIAL INH PRN (14:15)
[2019-02-14] MEDS: ACETYLCYSTEINE 200 MG/ML 4ML VIAL INH PRN (14:25)
[2019-02-14] MEDS: IPRATROPIUM BROMIDE 0.02% 2.5 ML NEB NEB PRN (14:25)
[2019-02-14] MEDS ORDERED: ACETAMINOPHEN 325 MG TAB GT PRN (14:30)
[2019-02-14] MEDS ORDERED: ACETAMINOPHEN 325 MG/10 ML UDC GT PRN (14:45)
--- NOTE | 2019-02-14 15:47 | NUR ---
Nutrition Intervention Note RD Recommendation(s) for Physician: - Recommend continuous TF of Jevity 1.2 with goal rate of 50 ml/hr (provides 1440 kcal, 67 gm protein, and 968 ml fluid). - Recommend water flushes of 100 ml q 4 hours per PEG to meet fluid needs. - Pt meets criteria for moderate protein calorie malnutrition. Plan of Care: RD following, monitoring for tolerance and adequacy. TF rec's Nutrition reason for involvement: Nutrition Risk Trigger- EN upon admit RD Assessment 02/14: 83 YOF seen today per screen for TF on admit. Pt admitted from [place], per RN pt on Jevity 1.5- discussed TF recommendations for Jevity 1.2 per current in house formulary. No family present at bedside at time of visit. TF of Jevity 1.2 infusing at 30 ml/hr. Pt discussed during am rounds, per RN pt with wounds- skin assessment and wound information pending. Will continue to monitor. Principal Problems/Diagnoses: hypernatremia, pneumonia, sepsis, UTI PMH: Dementia, dysphagia, + PEG GI: +PEG, No BM Skin: assessment and wound status pending Labs: 02/14: Na 149, K 3.3, BUN 70, Cr 0.9, Gluc 110 Meds: abx, syntroid, lactulose, pepcid, folic acid, zofran IVF: NS at 100 ml/hr Ht: 64 in Wt: 105.44 lb BMI: 18.1 IBW: 120 lb Malnutrition Evaluation (02/14/19) The patient does not meet criteria for a specified degree of malnutrition at this time. Will re-evaluate at follow-up as appropriate. 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 Age related changes noted Supporting Evidence: Fluid accumulation: none Functional Status: unable to evaluate Nutrition Prescription (Diet Order): TF of Jevity 1.5 at 40 ml/hr x 22 hrs. 200 ml H2O flush q 8 hrs. Estimated Nutritional Needs: 3204-3242 calories/day (25-30 kcal/kg CBW) 48-72 g protein/day (1-1.5 g pro/kg CBW)- adjust per renal function Diet Adequacy: Not meeting calorie needs, Not meeting protein needs Diet Tolerance: tolerating TF Diet Education Needs Assessment: Diet education not indicated, patient on temporary/transition diet. Nutrition Care Level: Mod Nutrition Diagnosis: Inadequate energy and protein intake related to current EN order as evidenced by not meeting needs with formula substitution. Goal: Patient will meet 75-100% of estimated needs by follow up Progress: N/A Interventions: -Composition, Rate, Route,Recommended Modifications, Collaboration with other providers Monitoring/Evaluation: -Total energy intake, Total protein intake, Formula/Solution, Prescription medication Signed: Kaitlin Robertson RD, LD, CNSC
[2019-02-14] MEDS ORDERED: FAMOTIDINE 20 MG TAB PEG SCH (17:00)
[2019-02-14] MEDS: LACTULOSE SYRUP 20 GM/30 ML UDC PEG SCH (17:15)
[2019-02-14] MEDS: SODIUM CHLORIDE 1 GM TAB PO SCH ×2 (17:15→21:58)
--- NOTE | 2019-02-14 18:47 | History and Physical ---
CHIEF COMPLAINT: Low blood pressure, fever and not looking good. HISTORY OF PRESENT ILLNESS: This is an 83-year-old female, who is a fci resident at [facility] for a long time with past medical history of severe dementia and previous stroke and PEG tube feeding, was in usual state until my nurse practitioner saw the patient yesterday. She was not looking good, high fever and low blood pressure. The patient was sent to the [facility] Emergency Room to rule out sepsis. Mild drainage from G-tube site. Has right foot wound. No diarrhea. No constipation. No headache. No cough. Mild shortness of breath. PAST MEDICAL HISTORY: 1. Oropharyngeal dysphagia, status post G-tube. 2. Advanced dementia. 3. Severe contracture extremity. 4. Hypertension. 5. Hyperlipidemia. 6. Hypothyroidism. 7. Urinary incontinent. 8. Pancreatic cyst. 9. History of stroke. PAST SURGICAL HISTORY: Gastrostomy and G-tube placement multiple times. ALLERGIES: ALLERGY TO PENICILLIN, SULFA, AND CODEINE. CURRENT MEDICATIONS: As per chart. SOCIAL HISTORY: This patient lives at [facility] in [place]. She is in contact with her daughter. HABITS: Denies smoking. Denies alcohol use. FAMILY HISTORY: Noncontributory. PHYSICAL EXAMINATION: GENERAL: This is an 83-year-old female, who is alert, open eyes, oriented x0. VITAL SIGNS: Temperature 98.3, pulse 110, respiratory rate 20, blood pressure 100/72. HEENT: Head atraumatic and normocephalic. Pupils are bilaterally equally reactive to light. Extraocular muscles intact. NECK: Stiff. No JVD. No carotid bruit. LUNGS: Decreased breath sounds at both bases. HEART: S1, S2. Regular rate and rhythm. No S3, no S4 or murmur. ABDOMEN: G-tube site cellulitis and redness. EXTREMITIES: Contracted right dorsum of the foot has mild wound. RAILWAYS ASSISTANT: Old stroke with severe dementia. IMAGING DATA: Chest x-ray read as pulmonary hyperplasia, small airway disease, right bibasilar airspace opacities suggestive of only pneumonia. LABORATORY DATA: White count 10.89, hemoglobin 11.6, hematocrit 37.7, platelet is 227. Sodium 156, potassium 3.2, BUN 84, creatinine 1.14. LFTs normal. Albumin is little low 2.7. . ASSESSMENT: 1. Urosepsis. 2. Early pneumonia. 3. Gastrostomy tube site cellulitis. 4. Cerebrovascular accident with left hemiplegia. 5. Right foot wound. 6. Hypertension. 7. Severe dementia. 8. Severe dehydration. PLAN: Zithromax 500 IV daily, cefepime 2 g IV q.12, IV fluid normal saline at 100 mL/h. Case discussed with the patient, daughter and nursing staff. Condition and prognosis explained and guarded. MD JAY Sierra/MODRosalba /[id number]
[2019-02-14 19:53] LABS: CREATINE KINASE MB 5.1 ng/mL (0-5.0)
[2019-02-15] VITALS (8 sets, daily range): BP systolic 93–121; BP diastolic 47–72
[2019-02-15] MEDS: AZITHROMYCIN 500MG/NS 250 ML 250 ML IV SCH (00:23)
[2019-02-15] MEDS: SODIUM CHLORIDE 0.45% 1,000 ML IV SCH (02:30)
[2019-02-15 05:03] LABS: BASOPHILS % 0.2 % (0.0-1.0); EOSINOPHILS # (AUTO) 0.2 (0.0-0.4); EOSINOPHILS % 2.8 % (0.0-6.0); HEMATOCRIT 27.4 % (34.2-44.1); HEMOGLOBIN 8.5 g/dL (12.0-16.0); LYMPHOCYTES # (AUTO) 0.9 (1.0-3.2); MEAN CORPUSCULAR HEMOGLOBIN 34.6 pg (28-32); MEAN CORPUSCULAR VOLUME 111.4 fL (81-99); MONOCYTES # (AUTO) 0.4 (0.2-0.8); MONOCYTES % 5.7 % (4.4-11.3); NEUTROPHILS # (AUTO) 4.7 (2.1-6.9); NEUTROPHILS % 75.7 % (38.7-80.0); PLATELET COUNT 133 x10e3/uL (140-360); RED BLOOD COUNT 2.46 x10e6/uL (3.6-5.1); RED CELL DISTRIBUTION WIDTH 16.2 % (11.7-14.4)
[2019-02-15 05:24] LABS: ANION GAP 10.6 mmol/L (8-16); BLOOD UREA NITROGEN 49 mg/dL (7-26); BUN/CREATININE RATIO 64 (6-25); CALCIUM 7.7 mg/dL (8.4-10.2); CARBON DIOXIDE 26 mmol/L (22-29); CHLORIDE 114 mmol/L (98-107); CREATININE, SERUM 0.77 mg/dL (0.57-1.11); EST GLOMERULAR FILTRATION RATE > 60 ML/MIN (60-); GLUCOSE 118 mg/dL (74-118); POTASSIUM 3.6 mmol/L (3.5-5.1); SODIUM 147 mmol/L (136-145)
[2019-02-15] MEDS: LEVOTHYROXINE SODIUM 100 MCG TAB PEG SCH (06:36)
[2019-02-15] MEDS: ACETYLCYSTEINE 200 MG/ML 4ML VIAL INH PRN (07:30)
[2019-02-15] MEDS: IPRATROPIUM BROMIDE 0.02% 2.5 ML NEB NEB PRN (07:30)
[2019-02-15] MEDS: CEFEPIME 2 GM/NS 0.9% 100 ML 100 ML IV SCH ×2 (08:33→20:56)
[2019-02-15] MEDS: FAMOTIDINE 20 MG/2 ML VIAL IV SCH ×2 (08:33→17:45)
[2019-02-15] MEDS: ASPIRIN 81 MG CHEW TAB PEG SCH (08:34)
[2019-02-15] MEDS: LACTULOSE SYRUP 20 GM/30 ML UDC PEG SCH ×2 (08:34→16:45)
[2019-02-15] MEDS: FOLIC ACID 1 MG TAB PEG SCH (08:34)
[2019-02-15] MEDS ORDERED: NON-FORMULARY MEDICATION (Levothyroxine Sodium 200 MCG) PEG SCH (09:00)
[2019-02-15] MEDS: FERROUS SULFATE 300 MG/5 ML LIQD PEG SCH ×3 (09:00→20:50)
--- NOTE | 2019-02-15 12:01 | NUR ---
CALLED CONSULT TO DR. AVELAR, FOR DISPLACED GI PEG TUBE SPOKE WITH THE FOOD SERVICE SPECIALIST. I ALSO CALLED DR. AVELAR'S CELL AND LEFT A MESSAGE LETTING HIM KNOW OF CONSULT.
[2019-02-15] MEDS: DEXTROSE 5%/0.45% SOD CHL 1,000 ML IV SCH (12:13)
--- NOTE | 2019-02-15 13:56 | NUR ---
WOUND CARE CONSULT FOR 83 YO FEMALE HALF-WAY RESIDENT HX OF PNEU, SEPSIS ,UTI BILATERAL UPPER EXTREMITY CONTRACTURES ELIF SCORE 10 PATIENT ON STRICT PUP ON ALTERNATING MATTRESS SKIN ASSESSMENT COMPLETE PATIENT PRESENTS WITH DTI AREAS ON BILATERAL FEET AND LEFT ARM CONTRACTURE WOUND CHARACTERISTICS AND SIZES ALSO NOTED DENUDED AREA AROUND PEG SITE R/T IRRITATING DRAINAGE RECOMMENDATIONS: NURSING TO CONTINUE TO PROTECT AND OFFLOAD PATIENT FOLLOWING STRICT PUP INTERVENTIONS NURSING TO APPLY DAILY MAXSORB AG SAMIR PEG TUB COVER WITH JOSEPH SECURE WITH MEDIFIX TAPE NURSING TO APPLY DAILY VENELEX OINTMENT TO LEFT ARM OPEN DTI COVER WITH ALLEVYN FOAM NURSING TO APPLY DAILY MAXSORB AG TO RIGHT FOOT OPEN DRAINING DTI COVER WITH ALLEVYN FOAM NURSING TO APPLY DAILY MAXSORB AG TO RIGHT LEFT FOOT OPEN DRAINING DTI COVER WITH ALLEVYN FOAM Addendum: 02/15/19 at 1417 by Chaz Kennedy RN Amended: Links added.
--- NOTE | 2019-02-15 19:59 | NUR ---
PLACED 2ND CALL TO DR. HARSHA CHRISTOPHER FOR ORDERS SUCTION NASO TRACHEAL PATIENT UNABLE TO COUGH SECRETIONS. WAITING FOR CALL BACK
[2019-02-15] MEDS ORDERED: DIATRIZOATE MEGL/DIATRIZOA SOD 30 ML BTL PO ONE (21:29)
--- NOTE | 2019-02-15 21:56 | Diagnostic Imaging Report ---
Exam: KUB - 1 view Clinical History: Gastrostomy tube position check. Comparison: KUB 11/18/2014. Findings: There is a balloon retention gastrostomy terminating in the distal stomach with contrast opacification of the stomach and proximal small bowel. Portable technique and motion artifact limits evaluation of the bowel gas pattern. Diffuse osteopenia. No evidence of acute osseous abnormality. Atherosclerotic vascular calcifications. Impression: Gastrostomy tube terminates in the distal stomach. Signed by: Dr. Niko Caballero MD on 02/15/2019 9:53 PM
--- NOTE | 2019-02-15 22:04 | Consultation ---
DATE OF CONSULTATION: HISTORY OF PRESENT ILLNESS: Ms. Marie Moss is known to me from previous admission. She really does not provide meaningful information. She does have history of severe dementia, severe dysphagia, recurrent admission, severe contraction, hypertension, hyperlipidemia, urinary incontinence, comes into the hospital with fever, chills, low blood pressure. She was came to the emergency room, where she was evaluated. She was admitted with sepsis. The patient is coming from a fpc at [facility]. The patient had severe dementia, multiple admissions for recurrent aspiration as well as PEG tube and dysfunction. The patient comes into the emergency room, where she was admitted. PAST MEDICAL HISTORY: As above. PAST SURGICAL HISTORY: Feeding tube placement. ALLERGIES: PENICILLIN, BUT SHE DID WELL WITH CEPHALOSPORIN. SOCIAL HISTORY: There is no smoking, drug abuse or alcohol abuse. FAMILY HISTORY: Could not be obtained. REVIEW OF SYSTEMS: Could not be obtained. LABORATORY DATA: Blood cultures still pending. Urine cultures are still pending. White count on admission was 10.89, hemoglobin of 11. Today, her hemoglobin 8.5. Sodium 147, potassium 3.6, and creatinine of 0.77. Her albumin is 2.2. Her liver enzyme within normal limit. The patient had a chest x-ray, which showed there is no small airway disease with emphysema. She also have pneumonia. PHYSICAL EXAMINATION: GENERAL: She is alert, noncommunicative. VITAL SIGNS: Stable, afebrile. T-max is when she first came, it was 103.2. HEENT: Normocephalic, not icteric. NECK: Supple. CHEST: Few crackles bilateral. COR: S1-S2, no murmur. ABDOMEN: Soft. Bowel sounds present. No tenderness. EXTREMITIES: No edema. IMPRESSION: 1. Sepsis on admission, pneumonia, concerned about aspiration, the patient coming from fpc. We will discontinue Zithromax and we will add cefepime and discontinue azithromycin. Await blood cultures. 2. Dehydration. 3. Local cellulitis infection on feeding tube. We will agree with local care, agree with wound care. 4. We will follow vancomycin level. We will follow trough. 5. Dementia. 6. Aspiration. 7. We will follow up. MD ANGEL Smith/ELVA /[id number]
--- NOTE | 2019-02-15 23:24 | Consultation ---
DATE OF CONSULTATION: 02/15/2019 GI Consult REASON FOR CONSULT: G-tube displacement. HISTORY OF PRESENTING ILLNESS: An 83-year-old detention resident with advanced dementia, bed-bound, gastrostomy status, got admitted with some fever and low blood pressure. GI is being consulted due to concern of dislodgement of the G-tube. I cannot derive any history from the patient. Most of my information is reviewed from the chart. There is also a concern about some leaking from the gastrostomy site. The skin is also quite red around the G-tube site. REVIEW OF SYSTEMS: Unobtainable. PAST MEDICAL HISTORY: Advanced dementia, oropharyngeal dysphagia, lower extremity contracture, hypertension, hyperlipidemia, hypothyroidism, history of pancreatic cyst, CVA. PAST SURGICAL HISTORY: G-tube placement. This has been replaced multiple times. FAMILY HISTORY: Noncontributory. SOCIAL HISTORY: retirement resident. No smoking, alcohol, or any illicit drug use. ALLERGIES: PENICILLIN, SULFA, CODEINE. MEDICATIONS: Acetaminophen, aspirin, famotidine, ferrous sulfate, folic acid, furosemide, ipratropium/albuterol inhaler, lactulose, levothyroxine, metoprolol. INPATIENT MEDICATIONS: List reviewed as per JUN. PHYSICAL EXAMINATION: VITAL SIGNS: Temperature 98.5, pulse 81, respirations 23, blood pressure 121/58, oxygen saturation 99% on 2 L of nasal cannula. GENERAL: Nonverbal. HEENT: Oral mucosa is moist. Poor oral hygiene. Anicteric sclerae. CVS: S1 and S2 regular. LUNGS: Bilaterally grossly clear with occasional scattered rales. ABDOMEN: Soft. G-tube site with surrounding erythema. External bumper is quite loose. Some mucoid discharge. G-tube appears to be in the stomach, rest of the abdomen is nondistended. No palpable mass or hernia. Positive bowel sounds. EXTREMITIES: Contracture. LABORATORY DATA: WBC 6.18, hemoglobin down to 8.5 from 10.0, hematocrit 27.4, MCV 111.4, and platelet count 133. Sodium 147, potassium 3.6, chloride 114, bicarb 26, BUN 49, creatinine 0.77. Chest x-ray showed a pulmonary hyperinflation suggestive of small airway disease/emphysema, right bibasilar airspace opacity suggestive of developing pneumonia. IMPRESSION: Advanced dementia, oropharyngeal dysphagia status post G-tube. G-tube appears to be in the stomach. However, this needs to be confirmed. External bumper is quite loose. I have discussed G-tube care with the nurse at the bedside. External bumper should always be hugging the skin. This will allow close approximation of internal gastric bumper with the external gastric bumper. This way gastrostomy site will be secured and not loose, and it will not allow any leakage. There is a surrounding erythema suggestive of abdominal wall cellulitis. The patient is already on intravenous cefepime. PLAN: In order to confirm the G-tube position, we will do a tube study. Obtain a KUB with gastrografin to confirm the position of the G-tube. Once the G-tube position is confirmed, then use G-tube for medication and feeding. Till the tube study is not done, do not use G-tube. I thank Dr. Gutierres for allowing me to participate in the care of this patient. Iker Dang MD SA/ELVA /[id number]
[2019-02-16] VITALS (9 sets, daily range): BP systolic 102–157; BP diastolic 50–74
--- NOTE | 2019-02-16 00:01 | NUR ---
called answering service of dr Shanda Gutierres, to report vanco trough result, expecting orders, awaiting for call back from the MD.
--- NOTE | 2019-02-16 00:36 | NUR ---
dr Shanda Gutierres called back, ordered Vancomycin 750 mg q 24 hr iv, and discontinue Vancomycin 1gm q 24 hr.
[2019-02-16] MEDS ORDERED: SODIUM CHLORIDE 0.9% 250ML 250 ML ONE (01:01)
[2019-02-16] MEDS ORDERED: VANCOMYCIN HCL 1 GM VIAL ONE (01:03)
[2019-02-16] MEDS: VANCOMYCIN 750MG/NS 150ML IVPB 150 ML IV SCH (01:13)
[2019-02-16] MEDS: DEXTROSE 5%/0.45% SOD CHL 1,000 ML IV SCH (04:36)
[2019-02-16] MEDS: LEVOTHYROXINE SODIUM 100 MCG TAB PEG SCH (05:51)
[2019-02-16 06:02] LABS: BASOPHILS % 0.3 % (0.0-1.0); EOSINOPHILS # (AUTO) 0.1 (0.0-0.4); EOSINOPHILS % 3.9 % (0.0-6.0); HEMATOCRIT 25.8 % (34.2-44.1); HEMOGLOBIN 8.3 g/dL (12.0-16.0); LYMPHOCYTES # (AUTO) 0.9 (1.0-3.2); LYMPHOCYTES % 23.8 % (18.0-39.1); MEAN CORPUSCULAR HEMOGLOBIN 36.4 pg (28-32); MEAN CORPUSCULAR HGB CONC 32.2 g/dL (31-35); MEAN CORPUSCULAR VOLUME 113.2 fL (81-99); MONOCYTES # (AUTO) 0.1 (0.2-0.8); MONOCYTES % 3.6 % (4.4-11.3); NEUTROPHILS # (AUTO) 2.5 (2.1-6.9); NEUTROPHILS % 68.1 % (38.7-80.0); PLATELET COUNT 136 x10e3/uL (140-360); RED BLOOD COUNT 2.28 x10e6/uL (3.6-5.1); RED CELL DISTRIBUTION WIDTH 15.9 % (11.7-14.4)
[2019-02-16 06:23] LABS: ALANINE AMINOTRANSFERASE 16 IU/L (0-55); ALBUMIN 1.9 g/dL (3.5-5.0); ALBUMIN/GLOBULIN RATIO 0.6 (0.8-2.0); ALKALINE PHOSPHATASE 77 IU/L (40-150); ANION GAP 9.4 mmol/L (8-16); BLOOD UREA NITROGEN 27 mg/dL (7-26); BUN/CREATININE RATIO 40 (6-25); CALCIUM 7.8 mg/dL (8.4-10.2); CARBON DIOXIDE 26 mmol/L (22-29); CHLORIDE 115 mmol/L (98-107); CREATININE, SERUM 0.67 mg/dL (0.57-1.11); EST GLOMERULAR FILTRATION RATE > 60 ML/MIN (60-); GLUCOSE 96 mg/dL (74-118); POTASSIUM 3.4 mmol/L (3.5-5.1); SODIUM 147 mmol/L (136-145)
--- NOTE | 2019-02-16 07:00 | NUR ---
BEDSIDE ROUNDS COMPLETE NO DISTRESS NOTED, IVF INFUSING TO RUE 20G,R FOOT 20G SL, DSGS NOTED, TO R FOOT,L FOOT AND L FA INTACT, PEG TUBER IN PLACE, PT UNABLE TO SPEAK, OPENS EYES WHEN MOVED OR SPOKEN TOO, PT IN STABLE CONDITION,WILL CONTINUE TO MONITOR
[2019-02-16] MEDS: ASPIRIN 81 MG CHEW TAB PEG SCH (09:00)
[2019-02-16] MEDS: FERROUS SULFATE 300 MG/5 ML LIQD PEG SCH ×3 (09:00→21:40)
[2019-02-16] MEDS: FOLIC ACID 1 MG TAB PEG SCH (09:00)
[2019-02-16] MEDS: LACTULOSE SYRUP 20 GM/30 ML UDC PEG SCH ×2 (09:00→16:46)
[2019-02-16] MEDS: CEFEPIME 2 GM/NS 0.9% 100 ML 100 ML IV SCH ×2 (09:15→21:40)
[2019-02-16] MEDS: BALSAM PERU/CASTOR OIL 60 GM OINT...G. TP SCH (09:15)
[2019-02-16] MEDS: FAMOTIDINE 20 MG/2 ML VIAL IV SCH (09:15)
--- NOTE | 2019-02-16 09:15 | NUR ---
FEEDING RESTARTED PER DR MC AT 15CC/HR AND INCREASE TILL GOAL OF 40CC/HR, CALL WITH RESIDUAL RESULTS.
--- NOTE | 2019-02-16 10:00 | NUR ---
SPOKE WITH LAB RE: BLOOD CULTURES, INFORMED DR ESCOTO OF BLOOD CULTURES RESULTS, NO NEW ORDERS AT THIS TIME
--- NOTE | 2019-02-16 12:00 | NUR ---
FEEDINGS INCREASED TO 25MLS/HR, PT TOLERATING WELL, NO RESIDUAL NOTED
[2019-02-16] MEDS ORDERED: POTASSIUM CHLORIDE 20MEQ/100ML 100 ML IV ONE (15:00)
--- NOTE | 2019-02-16 15:00 | NUR ---
NO RESIDUAL NOTED, INCREASED FEEDINGS TO 35CC/HR, WILL CONTINUE TO MONITOR
[2019-02-16] MEDS: PANTOPRAZOLE 40 MG 10ML VIAL IV SCH (16:04)
[2019-02-16] MEDS: D5.45%NS/KCL 20MEQ 1,000 ML IV SCH (16:04)
--- NOTE | 2019-02-16 16:30 | NUR ---
spoke with dr lares (GI) re: NO RESIDUAL NOTED FOR PEG TUBE, NO NEW ORDERS AT THIS TIME
--- NOTE | 2019-02-16 17:42 | NUR ---
NO RESIDUAL NOTED, INCREASED FEEDING TO 40CC/HR PER DR MC ORDER
[2019-02-17] VITALS (8 sets, daily range): BP systolic 103–150; BP diastolic 54–93
[2019-02-17] MEDS: VANCOMYCIN 750MG/NS 150ML IVPB 150 ML IV SCH (02:16)
[2019-02-17 05:27] LABS: BASOPHILS % 0.2 % (0.0-1.0); EOSINOPHILS # (AUTO) 0.2 (0.0-0.4); EOSINOPHILS % 3.8 % (0.0-6.0); HEMATOCRIT 24.8 % (34.2-44.1); LYMPHOCYTES # (AUTO) 0.9 (1.0-3.2); LYMPHOCYTES % 20.6 % (18.0-39.1); MEAN CORPUSCULAR HEMOGLOBIN 34.4 pg (28-32); MEAN CORPUSCULAR VOLUME 110.7 fL (81-99); MONOCYTES # (AUTO) 0.2 (0.2-0.8); MONOCYTES % 4.3 % (4.4-11.3); NEUTROPHILS # (AUTO) 3.2 (2.1-6.9); NEUTROPHILS % 70.9 % (38.7-80.0); PLATELET COUNT 156 x10e3/uL (140-360); RED BLOOD COUNT 2.24 x10e6/uL (3.6-5.1); RED CELL DISTRIBUTION WIDTH 15.8 % (11.7-14.4); RETICULOCYTE % 1.9 % (0.8-2.2)
[2019-02-17 05:32] LABS: HEMOGLOBIN 7.7 g/dL (12.0-16.0)
[2019-02-17 05:47] LABS: ANION GAP 8.8 mmol/L (8-16); BLOOD UREA NITROGEN 17 mg/dL (7-26); BUN/CREATININE RATIO 25 (6-25); CALCIUM 7.5 mg/dL (8.4-10.2); CARBON DIOXIDE 25 mmol/L (22-29); CHLORIDE 114 mmol/L (98-107); CREATININE, SERUM 0.68 mg/dL (0.57-1.11); EST GLOMERULAR FILTRATION RATE > 60 ML/MIN (60-); GLUCOSE 100 mg/dL (74-118); MAGNESIUM 3.5 MG/DL (1.3-2.1); POTASSIUM 3.8 mmol/L (3.5-5.1); SODIUM 144 mmol/L (136-145)
[2019-02-17 06:15] LABS: % IRON SATURATION 17 % (15-50); IRON 28 ug/dL (50-170); TOTAL IRON BINDING CAPACITY 164 ug/dL (261-478); TRANSFERRIN 117 mg/dL (180-382)
[2019-02-17] MEDS: LEVOTHYROXINE SODIUM 100 MCG TAB PEG SCH (06:27)
[2019-02-17 06:35] LABS: FERRITIN 279.04 ng/mL (4.63-204.00)
--- NOTE | 2019-02-17 07:30 | NUR ---
Dr Evans to bedside; orders rec'd.
[2019-02-17] MEDS: METOCLOPRAMIDE HCL 10MG/10ML UDC GT SCH ×2 (09:00→17:38)
[2019-02-17] MEDS: PANTOPRAZOLE 40 MG 10ML VIAL IV SCH (10:00)
[2019-02-17] MEDS: ASPIRIN 81 MG CHEW TAB PEG SCH (10:00)
[2019-02-17] MEDS: BALSAM PERU/CASTOR OIL 60 GM OINT...G. TP SCH (10:00)
[2019-02-17] MEDS: FERROUS SULFATE 300 MG/5 ML LIQD PEG SCH ×3 (10:00→21:00)
[2019-02-17] MEDS: CEFEPIME 2 GM/NS 0.9% 100 ML 100 ML IV SCH (10:00)
[2019-02-17] MEDS: LACTULOSE SYRUP 20 GM/30 ML UDC PEG SCH ×2 (10:00→17:38)
[2019-02-17] MEDS: FOLIC ACID 1 MG TAB PEG SCH (10:00)
--- NOTE | 2019-02-17 10:30 | NUR ---
Positive blood culture called to Al with ID. Orders rec'd.
[2019-02-17] MEDS: D5.45%NS/KCL 20MEQ 1,000 ML IV SCH (12:00)
[2019-02-17] MEDS ORDERED: SODIUM CHLORIDE 0.9% 250ML 250 ML IV ONE (14:15)
--- NOTE | 2019-02-17 17:52 | Progress Note ---
DATE: SUBJECTIVE: Ms. Moss remains noncommunicative, alert, but does not follow any command. According to the patient, nurse everything is about the same. Of interest, blood cultures on February 13, one of them is growing Gram positive cocci was MRSA in the repeat blood culture, which I placed is still pending. LABORATORY DATA: White count is 4.46, hemoglobin 7.7, hematocrit 24. Her platelet of 156. Sodium 144, potassium 3.8, and creatinine of 0.68. REVIEW OF SYSTEMS: Could not be obtained, but the medical team telling me everything is about the same. PHYSICAL EXAMINATION: GENERAL: Alert, noncommunicative. VITAL SIGNS: Stable, afebrile. Temperature 99.2, heart rate of 80, respirations 20. HEENT: Normocephalic. Not icteric. NECK: Supple. No JVD. No lymphadenopathy. No thyromegaly. CHEST: Clear bilateral. HEART: S1, S2. No S3, S4, or murmur. ABDOMEN: Soft. Bowel sounds present. No tenderness. EXTREMITIES: No edema. SKIN: No rash. IMPRESSION: 1. Sepsis present on admission. 2. Methicillin-resistant Staphylococcus aureus bacteremia present on admission. We will treat as if she have endocarditis and perhaps recommend echocardiogram. 3. Dementia. 4. Debility. 5. We will discontinue cefepime. Continue vancomycin. We will follow vancomycin trough follow level. Plan 4 weeks of IV antibiotic unless the echocardiogram was abnormal or the repeat blood culture was positive. 6. Anemia, getting progressively worse. We will defer to Internal Medicine, concerned about GI bleed. 7. We will follow vancomycin trough. This was elevated yesterday at 24.8. We will adjust. 8. See if I would benefit from going to an LTAC eventually since she has complicated medical issues. 9. History of hypothyroidism. 10. History of multiple problems with the feeding tube. 11. We will follow. MD ANGEL Smith/ELVA /[id number]
--- NOTE | 2019-02-17 19:30 | NUR ---
RECEIVED PT IN BED AWAKE AND NONVERBAL, PT HAS A RIGHT SHOULDER 20G WITH D5 1/2 NS INFUSING AT 50 ML/HR. PT HAS A 20G RIGHT FOOT SL, PATENT WITHOUT REDNESS AND SWELLING.. PT HAS A PEG TUBE WITH JEVITY 1.2 INFUSING AT 40 ML/HR. NO RESIDUAL NOTED. PT HAS CONTRACTURE TO ALL EXTREMITIES. INCONTINENT FOR BOWEL AND BLADDER. PT HAS NOTED OOZING AROUND PEG SITE. DRESSING IS CHANGED AND PATIENT IS REPOSITIONED. PT IS DNR/DNI. WILL CONTINUE TO MONITOR FOR DISTRESS AND SIGNS OF ASPIRATION.
[2019-02-18] VITALS (7 sets, daily range): BP systolic 138–160; BP diastolic 62–79
--- NOTE | 2019-02-18 00:05 | NUR ---
1 UNIT PRBC IS READY FROM THE LAB, PT IS NOT CONSENTED, CALLED FAMILY TO OBTAIN CONSENT, NO ONE ANSWERED, VM MESSAGE IS LEFT. AWAITING CALL BACK.
[2019-02-18] MEDS: VANCOMYCIN 750MG/NS 150ML IVPB 150 ML IV SCH (02:41)
--- NOTE | 2019-02-18 02:41 | NUR ---
VANCOMYCIN IS ADMINISTERED, PT IS CLEANED AND REPOSITIONED. VSS, NO ACUTE DISTRESS NOTED.
[2019-02-18 05:21] LABS: BASOPHILS % 0.2 % (0.0-1.0); EOSINOPHILS # (AUTO) 0.1 (0.0-0.4); EOSINOPHILS % 2.8 % (0.0-6.0); HEMOGLOBIN 7.4 g/dL (12.0-16.0); LYMPHOCYTES % 21.7 % (18.0-39.1); MEAN CORPUSCULAR HEMOGLOBIN 35.9 pg (28-32); MEAN CORPUSCULAR VOLUME 108.7 fL (81-99); MONOCYTES # (AUTO) 0.3 (0.2-0.8); MONOCYTES % 5.4 % (4.4-11.3); NEUTROPHILS # (AUTO) 3.3 (2.1-6.9); NEUTROPHILS % 69.7 % (38.7-80.0); PLATELET COUNT 138 x10e3/uL (140-360); RED BLOOD COUNT 2.06 x10e6/uL (3.6-5.1); RED CELL DISTRIBUTION WIDTH 15.6 % (11.7-14.4); RETICULOCYTE % 2.1 % (0.8-2.2)
[2019-02-18 05:22] LABS: HEMATOCRIT 22.4 % (34.2-44.1)
[2019-02-18] MEDS: LEVOTHYROXINE SODIUM 100 MCG TAB PEG SCH (05:27)
[2019-02-18 05:40] LABS: ALANINE AMINOTRANSFERASE 12 IU/L (0-55); ALBUMIN 1.9 g/dL (3.5-5.0); ALBUMIN/GLOBULIN RATIO 0.6 (0.8-2.0); ALKALINE PHOSPHATASE 68 IU/L (40-150); BLOOD UREA NITROGEN 16 mg/dL (7-26); BUN/CREATININE RATIO 26 (6-25); CALCIUM 7.6 mg/dL (8.4-10.2); CARBON DIOXIDE 26 mmol/L (22-29); CHLORIDE 108 mmol/L (98-107); CREATININE, SERUM 0.62 mg/dL (0.57-1.11); EST GLOMERULAR FILTRATION RATE > 60 ML/MIN (60-); GLUCOSE 106 mg/dL (74-118); SODIUM 138 mmol/L (136-145)
--- NOTE | 2019-02-18 06:56 | NUR ---
CALLED AND LEFT A VOICEMAIL MESSAGE FOR FAMILY TO OBTAIN CONSENT TO TRANSFUSE 1 UNIT [facility], AWAITING CALL KARIN.
[2019-02-18] MEDS: FERROUS SULFATE 300 MG/5 ML LIQD PEG SCH ×3 (10:08→21:00)
[2019-02-18] MEDS: LACTULOSE SYRUP 20 GM/30 ML UDC PEG SCH ×2 (10:08→16:36)
[2019-02-18] MEDS: FOLIC ACID 1 MG TAB PEG SCH (10:08)
[2019-02-18] MEDS: BALSAM PERU/CASTOR OIL 60 GM OINT...G. TP SCH (10:08)
[2019-02-18] MEDS: PANTOPRAZOLE 40 MG 10ML VIAL IV SCH (10:08)
[2019-02-18] MEDS: ASPIRIN 81 MG CHEW TAB PEG SCH (10:08)
[2019-02-18] MEDS: METOCLOPRAMIDE HCL 10MG/10ML UDC GT SCH ×2 (10:08→16:36)
[2019-02-18] MEDS ORDERED: SODIUM CHLORIDE 0.9% 250ML 250 ML ONE (12:29)
--- NOTE | 2019-02-18 12:41 | NUR ---
Spoke to Dr. Gutierres about plan of care. He would like to start a LTAC eval. Spoke to Magdalena dias, daughter, who gives choice for [facility]. Notified rep Vásquez about new consult
[2019-02-19] VITALS (7 sets, daily range): BP systolic 132–198; BP diastolic 66–94
[2019-02-19 05:11] LABS: BASOPHILS % 0.4 % (0.0-1.0); EOSINOPHILS # (AUTO) 0.2 (0.0-0.4); EOSINOPHILS % 2.7 % (0.0-6.0); LYMPHOCYTES # (AUTO) 1.1 (1.0-3.2); LYMPHOCYTES % 19.9 % (18.0-39.1); MEAN CORPUSCULAR HEMOGLOBIN 36.2 pg (28-32); MEAN CORPUSCULAR HGB CONC 34.5 g/dL (31-35); MEAN CORPUSCULAR VOLUME 105.1 fL (81-99); MONOCYTES # (AUTO) 0.3 (0.2-0.8); MONOCYTES % 5.6 % (4.4-11.3); PLATELET COUNT 137 x10e3/uL (140-360); RED BLOOD COUNT 2.76 x10e6/uL (3.6-5.1); RED CELL DISTRIBUTION WIDTH 17.3 % (11.7-14.4)
[2019-02-19] MEDS: LEVOTHYROXINE SODIUM 100 MCG TAB PEG SCH (05:51)
--- NOTE | 2019-02-19 07:16 | NUR ---
received pt, pt resp even and unlabored no distress noted pt has peg tube feeding going at this time, pt responses to name, call light in reach akosua cont to monitor.
[2019-02-19] MEDS: METOCLOPRAMIDE HCL 10MG/10ML UDC GT SCH ×2 (09:00→17:00)
[2019-02-19] MEDS: LACTULOSE SYRUP 20 GM/30 ML UDC PEG SCH ×2 (09:00→17:00)
[2019-02-19] MEDS: FOLIC ACID 1 MG TAB PEG SCH (09:00)
[2019-02-19] MEDS: ASPIRIN 81 MG CHEW TAB PEG SCH (09:00)
[2019-02-19] MEDS: PANTOPRAZOLE 40 MG 10ML VIAL IV SCH (09:00)
[2019-02-19] MEDS: FERROUS SULFATE 300 MG/5 ML LIQD PEG SCH ×3 (09:00→23:11)
[2019-02-19] MEDS: METOPROLOL TARTRATE 25 MG TAB PEG SCH ×2 (09:00→17:00)
[2019-02-19] MEDS: BALSAM PERU/CASTOR OIL 60 GM OINT...G. TP SCH (10:59)
--- NOTE | 2019-02-19 12:19 | NUR ---
LONG-TERM ACUTE CARE DISCHARGE INFORMATION PATIENT HAS BEEN ACCEPTED TO: NAME: [facility] ADDRESS: [address], [place] [address] ACCEPTING STATE DIRECTOR: DAYNA GUZMAN ACCEPTING MD: DR. Shanda CHRISTOPHER ROOM: 305 NURSE CALL REPORT TO: [phone] THE FOLLOWING DOCUMENTS MUST ACCOMPANY PATIENT FOR TRANSFER: COPY OF CHART, TRANSFER MAR COPIED CHART: LIFE TEACHER MOT INFO RECEIVED FROM: BROCK ARORA PHYSICIANS ORDER/RECONCILED MED LIST: TO BE OBTAINED BY BEDSIDE RN CHRISTY CROWLEY WAS INFORMED OF BED ASSIGNMENT AND MOT PLACED WITH PT'S PACKET AT NURSES STATION.
--- NOTE | 2019-02-19 13:00 | NUR ---
Nutrition Intervention Note RD Recommendation(s) for Physician: - Recommend continuous TF of Jevity 1.2 with goal rate of 50 ml/hr (provides 1440 kcal, 67 gm protein, and 968 ml fluid). - Recommend water flushes of 100 ml q 4 hours per PEG to meet fluid needs. - Pt meets criteria for moderate protein calorie malnutrition. Plan of Care: RD following, monitoring for tolerance and adequacy. TF rec's Nutrition reason for involvement: follow up RD Assessment 02/19: Follow up. Pt on TF of Jevity 1.2 at 40 ml/hr, pt on TF for 22 hrs per current order. Pt remains non responsive at baseline. Pt discussed during am rounds, discussed increasing TF to recommended goal rate- RN Tali responded "pt is gurgling", no reported aspiration in chart. Pt pending discharge to LTAC. Will monitor and continue to follow. 02/14: 83 YOF seen today per screen for TF on admit. Pt admitted from [place], per RN pt on Jevity 1.5- discussed TF recommendations for Jevity 1.2 per current in house formulary. No family present at bedside at time of visit. TF of Jevity 1.2 infusing at 30 ml/hr. Pt discussed during am rounds, per RN pt with wounds- skin assessment and wound information pending. Will continue to monitor. Principal Problems/Diagnoses: hypernatremia, pneumonia, sepsis, UTI PMH: Dementia, dysphagia, + PEG GI: LBM 02/19- liquid Skin: L heel stage II Labs: 02/19: Na 138, K 4, BUN 16, Cr 0.62, Gluc 106 02/14: Na 149, K 3.3, BUN 70, Cr 0.9, Gluc 110 Meds: reglan, protonix, abx, lactulose, folic acid, synthroid, feosol, zofran Ht: 64 in Wt: 105.44 lb BMI: 18.1 IBW: 120 lb Malnutrition Evaluation (02/14/19) The patient does not meet criteria for a specified degree of malnutrition at this time. Will re-evaluate at follow-up as appropriate. 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 Age related changes noted Supporting Evidence: Fluid accumulation: none Functional Status: unable to evaluate Nutrition Prescription (Diet Order): TF of Jevity 1.2 at 40 ml/hr x 22 hrs. 200 ml H2O flush q 8 hrs. Providing 1056 kcal and 49 gm protein Estimated Nutritional Needs: 2615-8792 calories/day (25-30 kcal/kg CBW) 48-72 g protein/day (1-1.5 g pro/kg CBW)- adjust per renal function Diet Adequacy: Not meeting calorie needs, Not meeting protein needs Diet Tolerance: tolerating TF Diet Education Needs Assessment: Diet education not indicated, patient on temporary/transition diet. Nutrition Care Level: Mod Nutrition Diagnosis: Inadequate energy and protein intake related to current EN order as evidenced by not meeting needs with formula substitution. Goal: Patient will meet 75-100% of estimated needs by follow up Progress: progressing Interventions: -Composition, Rate, Route,Recommended Modifications, Collaboration with other providers Monitoring/Evaluation: -Total energy intake, Total protein intake, Formula/Solution, Prescription medication Signed: Kaitlin Robertson RD, LD, CNSC
--- NOTE | 2019-02-19 19:44 | NUR ---
report given to oncoming nurse, pt stable.
[2019-02-20] VITALS (8 sets, daily range): BP systolic 138–165; BP diastolic 64–83
[2019-02-20] MEDS ORDERED: SODIUM CHLORIDE 0.9% 250ML 250 ML ONE (01:39)
[2019-02-20] MEDS: VANCOMYCIN 750MG/NS 150ML IVPB 150 ML IV SCH (01:43)
[2019-02-20] MEDS: LEVOTHYROXINE SODIUM 100 MCG TAB PEG SCH (06:13)
[2019-02-20] MEDS: METOCLOPRAMIDE HCL 10MG/10ML UDC GT SCH ×2 (09:09→17:56)
[2019-02-20] MEDS: PANTOPRAZOLE 40 MG 10ML VIAL IV SCH (09:09)
[2019-02-20] MEDS: METOPROLOL TARTRATE 25 MG TAB PEG SCH ×2 (09:09→17:56)
[2019-02-20] MEDS: FERROUS SULFATE 300 MG/5 ML LIQD PEG SCH ×3 (09:09→21:00)
[2019-02-20] MEDS: LACTULOSE SYRUP 20 GM/30 ML UDC PEG SCH ×2 (09:09→17:56)
[2019-02-20] MEDS: ASPIRIN 81 MG CHEW TAB PEG SCH (09:09)
[2019-02-20] MEDS: FOLIC ACID 1 MG TAB PEG SCH (09:09)
[2019-02-20] MEDS: BALSAM PERU/CASTOR OIL 60 GM OINT...G. TP SCH (13:00)
--- NOTE | 2019-02-20 14:26 | NUR ---
WOUND CARE CONSULT F/U FOR 83 YO FEMALE HALFWAY RESIDENT HX OF PNEU, SEPSIS ,UTI BILATERAL UPPER EXTREMITY CONTRACTURES ELIF SCORE 10 PATIENT ON STRICT PUP ON ALTERNATING MATTRESS PATIENT DTI AREAS ON BILATERAL FEET AND LEFT ARM CONTRACTURE WOUND CHARACTERISTICS AND SIZES REMAIN CONSTANT WITH FINDINGS ON 02/15/19 WITH SOME AREAS OF NEW HEALING PRESENT ALSO NOTED DENUDED AREA AROUND PEG SITE R/T IRRITATING DRAINAGE DECREASE REDNESS WITH SOME AREAS OF HEALING NURSING TO CONTINUE TO MAINTAIN STRICT PUP STATUS NURSING TO CONTINUE TO MAINTAIN ALTERNATING PRESSURE MATTRESS WITH BILATERAL PILLOW SUSPENSION OF HEELS IN HEEL PROTECTORS NURSING TO CONTINUE TO FOLLOW CURRENT WOUND CARE ORDERS CONSULT WOUND CARE WITH ANY BARRIERS TO TREATMENT OR ASSISTENCE WITH TREATMENTS Addendum: 02/20/19 at 1433 by Chaz Kennedy RN Amended: Links added.
--- NOTE | 2019-02-20 15:07 | NUR ---
Left message for Dr. Pina regarding consultation. Awaiting response.
--- NOTE | 2019-02-20 19:15 | NUR ---
Pt visited in room during nursing rounds. Patient aphasic and bedridden. Pt on total care. Severely contracted on all extremities. Code status is DNR. Pt diapered and being turned Q2hrs. PEG tube on abd receiving Jevity 1.2 luciana at 40ml/hr. Heel protectors bilaterally. Bed alarm active.
[2019-02-20] MEDS: ACETYLCYSTEINE 200 MG/ML 4ML VIAL INH PRN (19:27)
[2019-02-20] MEDS: IPRATROPIUM BROMIDE 0.02% 2.5 ML NEB NEB PRN (19:27)
--- NOTE | 2019-02-20 19:52 | Consultation ---
DATE OF CONSULTATION: Cardiology Consultation REASON FOR CONSULTATION: Endocarditis. HISTORY OF PRESENT ILLNESS: This is an 83-year-old woman, who lives at a residential with severe advanced dementia, malnutrition, status post PEG tube, hypertension, hypothyroidism, and history of cerebrovascular accident, who was admitted for fever and urosepsis. She has been treated for pneumonia and her urinary tract infection with also treatment of cellulitis. We have been asked to evaluate the patient for possible endocarditis given a blood culture with MRSA. The patient cannot relay any medical history as she has severe advanced dementia. PAST MEDICAL HISTORY: As stated above. PAST SURGICAL HISTORY: PEG tube placement. SOCIAL HISTORY: No illicit drug, alcohol, or tobacco use. ALLERGIES: PENICILLIN, SULFA, CODEINE. MEDICATIONS: See medications reconciliation form. FAMILY HISTORY: Noncontributory. PHYSICAL EXAMINATION: VITAL SIGNS: Temperature is 98.8, heart rate is 69, respirations are 19, blood pressure is 138/76, oxygen saturation is 100% on 2 L nasal cannula. GENERAL: She is a chronically ill-appearing elderly woman, sleeping comfortably. HEAD: Normocephalic, atraumatic. EYES: Conjunctivae clear. ENT: Oropharynx, mucous membranes are moist. CARDIOVASCULAR: Regular rate and rhythm. LUNGS: Decreased breath sounds at bases. ABDOMEN: Soft, nontender, nondistended. EXTREMITIES: No edema. LABORATORY DATA: Reviewed. Hemoglobin is 10, creatinine is 0.62. IMPRESSION: Methicillin-resistant Staphylococcus aureus bacteremia, sepsis, pneumonia, dementia, chronic debilitation, malnutrition, anemia. RECOMMENDATIONS: An echocardiogram has been ordered. We will review this once it has been resulted. Her blood cultures have since cleared on current antibiotic regimen. Continue current cardiovascular medications. Further recommendations pending echocardiogram results. DO ZAC Washington/MODL /[id number]
--- NOTE | 2019-02-20 20:20 | NUR ---
Sponge dressing (gauze) changed on PEG insertion site. Residual check from PEG was 0ml.
[2019-02-20] MEDS: HYDRALAZINE HCL 20 MG/ML VIAL IV PRN (20:24)
[2019-02-21] VITALS (7 sets, daily range): BP systolic 106–180; BP diastolic 51–91
[2019-02-21] MEDS: LEVOTHYROXINE SODIUM 100 MCG TAB PEG SCH (06:26)
[2019-02-21] MEDS: HYDRALAZINE HCL 20 MG/ML VIAL IV PRN (06:40)
--- NOTE | 2019-02-21 07:00 | NUR ---
RECEIVED AM REPORT FROM NURSE AND ROUNDS DONE. PT IS SLEEPING, NO S/S OF DISTRESS. SIDE RAILS ARE UP, BED IN LOWEST POSITION AND BED ALARM IS ON
[2019-02-21 07:14] LABS: BASOPHILS % 0.2 % (0.0-1.0); EOSINOPHILS # (AUTO) 0.1 (0.0-0.4); EOSINOPHILS % 2.6 % (0.0-6.0); HEMATOCRIT 29.1 % (34.2-44.1); HEMOGLOBIN 9.9 g/dL (12.0-16.0); LYMPHOCYTES # (AUTO) 1.2 (1.0-3.2); LYMPHOCYTES % 23.2 % (18.0-39.1); MEAN CORPUSCULAR HEMOGLOBIN 35.2 pg (28-32); MEAN CORPUSCULAR VOLUME 103.6 fL (81-99); MONOCYTES # (AUTO) 0.3 (0.2-0.8); MONOCYTES % 5.8 % (4.4-11.3); NEUTROPHILS # (AUTO) 3.4 (2.1-6.9); NEUTROPHILS % 67.8 % (38.7-80.0); PLATELET COUNT 184 x10e3/uL (140-360); RED BLOOD COUNT 2.81 x10e6/uL (3.6-5.1); RED CELL DISTRIBUTION WIDTH 15.9 % (11.7-14.4)
[2019-02-21 07:29] LABS: BLOOD UREA NITROGEN 14 mg/dL (7-26); BUN/CREATININE RATIO 22 (6-25); CALCIUM 7.7 mg/dL (8.4-10.2); CARBON DIOXIDE 24 mmol/L (22-29); CHLORIDE 100 mmol/L (98-107); CREATININE, SERUM 0.65 mg/dL (0.57-1.11); EST GLOMERULAR FILTRATION RATE > 60 ML/MIN (60-); GLUCOSE 125 mg/dL (74-118); SODIUM 132 mmol/L (136-145)
[2019-02-21] MEDS: ASPIRIN 81 MG CHEW TAB PEG SCH (09:16)
[2019-02-21] MEDS: METOCLOPRAMIDE HCL 10MG/10ML UDC GT SCH ×2 (09:16→17:07)
[2019-02-21] MEDS: LACTULOSE SYRUP 20 GM/30 ML UDC PEG SCH ×2 (09:16→17:07)
[2019-02-21] MEDS: FOLIC ACID 1 MG TAB PEG SCH (09:16)
[2019-02-21] MEDS: PANTOPRAZOLE 40 MG 10ML VIAL IV SCH (09:16)
[2019-02-21] MEDS: METOPROLOL TARTRATE 50 MG TAB PEG SCH ×2 (09:16→17:07)
[2019-02-21] MEDS: FERROUS SULFATE 300 MG/5 ML LIQD PEG SCH ×3 (09:30→21:46)
--- NOTE | 2019-02-21 11:55 | NUR ---
ECHO was completed today. Will transfer once cleared by cardiology. LONG-TERM ACUTE CARE DISCHARGE INFORMATION PATIENT HAS BEEN ACCEPTED TO: NAME: [facility] ADDRESS: [id number] [place] [address] ACCEPTING BOOSTER PUMP OPERATOR: Trinity Ramirez ACCEPTING MD: Dr. Shanda Gutierres ROOM: 327 NURSE CALL REPORT TO: [phone] THE FOLLOWING DOCUMENTS MUST ACCOMPANY PATIENT FOR TRANSFER: copy of chart. transfer JUN. OOH DNR COPIED CHART: community mental health social worker MOT INFO RECEIVED FROM: Thalia Gallardo PHYSICIANS ORDER/RECONCILED MED LIST: to be obtained by bedside RN [id number] DNR: on chart Room number updated on MOT. MOT in warehouse shipper's office.
--- NOTE | 2019-02-21 13:01 | Progress Note ---
DATE: Cardiology Progress Note SUBJECTIVE: Unable to obtain review of systems due to severe dementia. OBJECTIVE: VITAL SIGNS: Temperature is 98.3, heart rate is 100, respiratory rate is 20, blood pressure is 106/58, ox saturation 93% on 2 L nasal cannula. GENERAL: Elderly appearing. No apparent distress. CARDIOVASCULAR: Tachycardic. Regular rhythm. LUNGS: Clear to auscultation. ABDOMEN: Soft, nontender, nondistended. CARDIOVASCULAR MEDICATIONS: Reviewed. LABORATORY DATA: Reviewed. Echocardiogram was technically difficult, showed normal ejection fraction with no significant valvular abnormalities. IMPRESSION: 1. Methicillin-resistant Staphylococcus aureus bacteremia. 2. Sepsis. 3. Pneumonia. 4. Dementia. 5. Chronic debilitation. 6. Malnutrition. 7. Anemia. RECOMMENDATIONS: Her echocardiogram was technically difficult with limited images. On the 2D images performed, there was no significant valvular vegetations seen. The patient is not a candidate for transesophageal echocardiography. Continue antibiotic therapies and current cardiovascular medications. Chapo Pina DO BM/MODL /[id number]
--- NOTE | 2019-02-21 15:32 | NUR ---
Nutrition Intervention Note RD Recommendation(s) for Physician: - Recommend continuous TF of Jevity 1.2 with goal rate of 50 ml/hr - Recommend water flushes of 100 ml q 4 hours per PEG to meet fluid needs (provides 1440 kcal, 67 gm protein, and 1568 ml fluid). Plan of Care: RD following, monitoring for tolerance and adequacy. TF rec's Nutrition reason for involvement: follow up and consult RD Assessment 02/21: Follow up and received consult. Pt is tolerating tube feeding per RN and is currently receiving Jevity 1.2 @ 40 mL/hr for 22 hrs per current order. No family members were present at bedside. Recommend increasing TF to recommended goal rate. Informed RN, who reported she will increase tube feed rate to goal. Will continue to monitor. 02/19: Follow up. Pt on TF of Jevity 1.2 at 40 ml/hr, pt on TF for 22 hrs per current order. Pt remains non responsive at baseline. Pt discussed during am rounds, discussed increasing TF to recommended goal rate- RN Tlai responded "pt is gurgling", no reported aspiration in chart. Pt pending discharge to LTAC. Will monitor and continue to follow. 02/14: 83 YOF seen today per screen for TF on admit. [facility], per RN pt on Jevity 1.5- discussed TF recommendations for Jevity 1.2 per current in house formulary. No family present at bedside at time of visit. TF of Jevity 1.2 infusing at 30 ml/hr. Pt discussed during am rounds, per RN pt with wounds- skin assessment and wound information pending. Will continue to monitor. Principal Problems/Diagnoses: hypernatremia, pneumonia, sepsis, UTI PMH: Dementia, dysphagia, + PEG GI: last BM 02/21 Skin: L heel stage II Labs: 02/21: Na 132, Glu 125, Ca 10/14 02/19: Na 138, K 4, BUN 16, Cr 0.62, Gluc 106 02/14: Na 149, K 3.3, BUN 70, Cr 0.9, Gluc 110 Meds: hydralazine, levothyroxine, Reglan, lactulose, folic acid, vancomycin, metroprolol, zofran Ht: 64 in Wt: 105.44 lb BMI: 18.1 IBW: 120 lb Malnutrition Evaluation (02/21/19) The patient does not meet criteria for a specified degree of malnutrition at this time. Will re-evaluate at follow-up as appropriate. Energy intake: current tube feed order is not meeting pts energy needs Weight loss: Unable to evaluate Fat loss: None Muscle loss: Mild temporal wasting. Age related changes noted Pt also showed moderate muscle depletion in lower extremities Supporting Evidence: Fluid accumulation: none Functional Status: unable to evaluate Nutrition Prescription (Diet Order): TF of Jevity 1.2 at 40 ml/hr x 22 hrs. 200 ml H2O flush q 8 hrs. Providing 1056 kcal and 49 gm protein Estimated Nutritional Needs: 2052-3201 calories/day (25-30 kcal/kg CBW) 48-72 g protein/day (1.0-1.5 g pro/kg CBW) Diet Adequacy: Not meeting calorie needs, Not meeting protein needs Diet Tolerance: tolerating TF Diet Education Needs Assessment: Diet education not indicated, patient on temporary/transition diet. Nutrition Care Level: Mod Nutrition Diagnosis: Inadequate energy and protein intake related to current EN order as evidenced by not meeting needs with formula substitution. Goal: Patient will meet 75-100% of estimated needs by follow up Progress: progressing Interventions: -Composition, Rate, Route,Recommended Modifications, Collaboration with other providers Monitoring/Evaluation: -Total energy intake, Total protein intake, Formula/Solution, Signed: Mariam Bridges RD, LD
[2019-02-21] MEDS: BALSAM PERU/CASTOR OIL 60 GM OINT...G. TP SCH (16:00)
--- NOTE | 2019-02-21 19:20 | NUR ---
Pt visited in room during nursing rounds. Patient aphasic and bedridden. Pt on total care. Severely contracted on all extremities. Code status is DNR. Pt diapered and being turned Q2hrs. PEG tube on abd receiving Jevity 1.2 luciana at 40ml/hr. Heel protectors bilaterally. Bed alarm active. Addendum: 02/22/19 at 0057 by Luis Lopez RN correction: Jevity 1.2 luciana at 50ml/hr
[2019-02-22] VITALS: BP 112/61
[2019-02-22] MEDS: VANCOMYCIN 750MG/NS 150ML IVPB 150 ML IV SCH (02:31)
--- NOTE | 2019-02-22 03:00 | NUR ---
Received phone call from call center representative at [facility] inquiring when patient will be transferred. Informed call center representative still awaiting on cardiac clearance. CM working on expediting transfer.
[2019-02-22 04:00] VITALS: BP 114/62
[2019-02-22] MEDS: LEVOTHYROXINE SODIUM 100 MCG TAB PEG SCH (06:14)
--- NOTE | 2019-02-22 07:00 | NUR ---
PATIENT IS LETHARGIC AND NONVERBAL- PATIENT IN STABLE CONDITION WITH NO S/S OF RESPIRATORY DISTRESS. 02 APPLIED AT 2L NC. NO PAIN INDICATED BY PATIENT. TELEMETRY APPLIED. PEG TUBE INTACT AND TUBE FEEDING INFUSING. DIAPER APPLIED. ALLEVYN PAD APPLIED TO LEFT FOREARM AND HEEL PROTECTORS APPLIED TO BILATERAL FEET. BED ALARM APPLIED. CALL LIGHT IS WITHIN REACH OF PATIENT.
[2019-02-22 07:45] VITALS: BP 127/66
[2019-02-22] MEDS: PANTOPRAZOLE 40 MG 10ML VIAL IV SCH (08:23)
[2019-02-22] MEDS: METOCLOPRAMIDE HCL 10MG/10ML UDC GT SCH (08:24)
[2019-02-22] MEDS: FERROUS SULFATE 300 MG/5 ML LIQD PEG SCH (08:25)
[2019-02-22] MEDS: METOPROLOL TARTRATE 50 MG TAB PEG SCH (08:29)
[2019-02-22] MEDS: FOLIC ACID 1 MG TAB PEG SCH (08:29)
[2019-02-22] MEDS: ASPIRIN 81 MG CHEW TAB PEG SCH (08:29)
[2019-02-22] MEDS: LACTULOSE SYRUP 20 GM/30 ML UDC PEG SCH (08:29)
[2019-02-22 08:53] VITALS: BP 127/66
[2019-02-22] MEDS: BALSAM PERU/CASTOR OIL 60 GM OINT...G. TP SCH (11:19)
[2019-02-22 11:28] VITALS: BP 119/56
--- NOTE | 2019-02-22 12:16 | NUR ---
DR. CHURCH ON THE UNIT- SPOKE WITH DR. CHURCH ON PATIENT'S TRANSFER TO [place]. RECEIVED CLEARANCE FOR DISCHARGE.
--- NOTE | 2019-02-22 12:34 | NUR ---
CALLED JAYDE - SPOKE WITH ROME ARCHER AT [phone] (WHO WILL BE RECEIVING THE PATIENT) AND TRANSFER REPORT GIVEN. CALLBACK NUMBER PROVIDED TO GIANNI.
--- NOTE | 2019-02-22 13:33 | NUR ---
LONG-TERM ACUTE CARE DISCHARGE INFORMATION PATIENT HAS BEEN ACCEPTED TO: NAME: [facility] ADDRESS: [id number] [place] [address] ACCEPTING SKIN THERAPIST: Trinity Ramirez ACCEPTING MD: Dr. Shanda Gutierres ROOM: 307 NURSE CALL REPORT TO: [phone] THE FOLLOWING DOCUMENTS MUST ACCOMPANY PATIENT FOR TRANSFER: copy of chart. transfer MAR. OOH DNR COPIED CHART: gunstock spray unit feeder MOT INFO RECEIVED FROM: Thalia Gallardo PHYSICIANS ORDER/RECONCILED MED LIST: to be obtained by bedside RN [id number] DNR: on chart Adrienne RN was updated on room number change. CM asked Adrienne to fax today's JUN to [phone].
--- NOTE | 2019-02-22 14:46 | NUR ---
PATIENT DISCHARGE/TRANSFER TO [place] ROOM 307. PATIENT IN STABLE CONDITION WITH NO S/S OF RESPIRATORY DISTRESS. 02 APPLIED AT 2L NC. IV LOCATED TO RIGHT UPPER CHEST/SUBCLAVIAN AREA- SALINE LOCK. PEG TUBE INTACT AND SALINE LOCKED. DIAPER APPLIED. TRANSFER PACKET GIVEN TO EMS. PATIENT DID NOT HAVE ANY PERSONAL BELONGINGS.
== END 2019-02-22 14:50 | DRG 871 ==
LOC: ER 17:11 → ERHOLD 23:01 → OBSVTOIN 23:19 → IMCU 02-14 00:38 → MED/SURG2 02-18 18:15
PROVIDERS: ADMIT Internal Medicine; ATTEND Internal Medicine
PROC: 30233N1 Transfusion of Nonautologous Red Blood Cells into Peripheral Vein, Percutaneous Approach (ICD-10-PCS; principal; 2019-02-13)
DX: A41.02 Sepsis due to Methicillin resistant Staphylococcus aureus (principal); J18.9 Pneumonia, unspecified organism; R53.2 Functional quadriplegia; K92.2 Gastrointestinal hemorrhage, unspecified; L03.311 Cellulitis of abdominal wall; K94.22 Gastrostomy infection; I69.354 Hemiplegia and hemiparesis following cerebral infarction affecting left non-dominant side; E46 Unspecified protein-calorie malnutrition; Z68.1 Body mass index [BMI] 19.9 or less, adult; F03.90 Unspecified dementia, unspecified severity, without behavioral disturbance, psychotic disturbance, mood disturbance, and anxiety; L89.626 Pressure-induced deep tissue damage of left heel; L89.616 Pressure-induced deep tissue damage of right heel; Z66 Do not resuscitate; E78.5 Hyperlipidemia, unspecified; E03.9 Hypothyroidism, unspecified; I69.365 Other paralytic syndrome following cerebral infarction, bilateral; E86.0 Dehydration; E87.6 Hypokalemia; D64.9 Anemia, unspecified
CPT/HCPCS: 36415; 71045; 74018; 80048; 80053; 80202; 81001; 82270; 82550; 82553; 82607; 82728; 83540; 83605; 83735; 84466; 84484; 85025; 85045; 86850; 86870; 86880; 86900; 86905; 86920; 86922; 87040; 87071; 87086; 87186; 87205; 87400; 93005; 93306; 94640; 99001; 99285; J0360; J0456; J3370; J3480; J7030; J7050; P9016